=== PATIENT | male | born 1950 | race Caucasian/White ===

== ENCOUNTER 2018-09-01 12:20 | Outpatient (CLI) | payer MEDICARE, OTHER, SELFPAY ==
[2018-09-01 13:36] LABS: Cholesterol 196 mg/dL (50-200); HDL Cholesterol 41 mg/dL (40-60); LDL CHOLESTEROL 139 mg/dL (<100); Triglyceride 48 mg/dL (30-150)
== END 2018-09-01 12:40 ==
PROVIDERS: PCP Family Medicine; Visit Provider Family Medicine
DX: E78.5 Hyperlipidemia, unspecified (principal)
CPT/HCPCS: 36415; 80061; 83721

== ENCOUNTER 2021-01-15 03:19 | Outpatient (CLI) | payer MEDICARE, OTHER, SELFPAY ==
[2021-01-15 12:47] LABS: HCT 42.8 % (40.0-50.0); HGB 13.9 g/dL (13.5-17.5); MCH 29.3 pg (27.0-33.0); MCHC 32.5 % (32.0-36.0); MCV 90.1 fL (80-95); MPV 10.5 fL (8.0-11.0); Platelet Count 243 10^3/uL (130-400); RBC 4.75 10^6/uL (4.36-5.78); RDW 12.5 % (11.8-14.1); RDW-SD 41.1 fL; WBC 5.79 10^3/uL (4.4-10.8)
[2021-01-15 13:23] LABS: ALT 34 U/L (16-63); AST 35 U/L (15-37); Albumin 3.7 g/dL (3.4-5.0); Alkaline Phosphatase 82 U/L (46-116); BUN 28 mg/dL (7-18); CREATININE 1.2 mg/dL (0.70-1.30); Calcium 8.8 mg/dL (8.5-10.1); Calculated LDL 141 mg/dL (<100); Chloride 107 mmol/L (98-107); Cholesterol 192 mg/dL (<200); Glucose 92 mg/dL (74-106); HDL Cholesterol 39 mg/dL (40-60); Potassium 4.8 mmol/L (3.5-5.1); Sodium 143 mmol/L (136-145); TSH (W/Ref FT4) 1.95 uIU/mL (0.36-3.74); Total Protein 6.8 g/dL (6.4-8.2); Triglyceride 64 mg/dL (<150); Vitamin B12 312 pg/mL (193-986)
== END 2021-01-15 03:20 | disposition home or self-care (01) ==
PROVIDERS: PCP Family Medicine; Visit Provider Family Medicine
DX: E78.2 Mixed hyperlipidemia (principal); Z83.3 Family history of diabetes mellitus; R41.9 Unspecified symptoms and signs involving cognitive functions and awareness; Z86.2 Personal history of diseases of the blood and blood-forming organs and certain disorders involving the immune mechanism
CPT/HCPCS: 36415; 80053; 80061; 85027; 82607; 84443

== ENCOUNTER 2022-05-25 01:47 | Outpatient (CLI) | payer MEDICARE, OTHER, SELFPAY ==
--- NOTE | 2022-05-25 07:15 | DI.RAD_ITS ---
Exam(s) XR ANKLE RT COMPLETE EXAM: XR ANKLE RT COMPLETE CLINICAL HISTORY: right ankle pain x 5 mo,effusion,m25.471. TECHNIQUE: 2D digital imaging was performed of the right ankle. Three images were obtained. AP, la teral and oblique views were obtained. COMPARISON: No exams were available for comparison FINDINGS: BONES: No acute fracture is present. No bony destructive lesion is seen. There is a small plantar ca lcaneal spur. JOINTS: The ankle mortise is normally aligned. SOFT TISSUE: Vascular calcifications are seen in the soft tissues. IMPRESSION: No acute abnormality. DATA REPOSITORY: RADIATION DOSE DELIVERED:
== END 2022-05-25 02:07 ==
PROVIDERS: PCP Family Medicine; Visit Provider Family Medicine
DX: M25.471 Effusion, right ankle (principal)
CPT/HCPCS: 73610

== ENCOUNTER → 2022-12-09 10:44 | Outpatient (BNVA) | payer MEDICARE, OTHER, SELFPAY | PROVIDERS: PCP Family Medicine; Referring Provider Family Medicine; Visit Provider Physical Therapy Assistant | DX: Z12.11 Encounter for screening for malignant neoplasm of colon (principal) ==

== ENCOUNTER 2023-01-03 06:12 | Day surgery (SDC) | payer MEDICARE, OTHER, SELFPAY ==
--- NOTE | 2023-01-02 19:36 | W.PM.DSUDISC ---
Date of service: 01/03/23 Time of Service: 08:00 Discharge Plan Disposition Patient Disposition: Home Condition: Good Discharge Details Reason For Visit: Screening colonoscopy Attending Provider: Aryan Flores Primary Care Provider: Estephania Langford Home Meds and New Rx's Prescriptions: Continued aspirin 325 MG tablet,delayed release (DR/EC) 325 mg PO DAILY Patient Comments: 11/29/14 taking bid. [facility] atorvastatin 20 mg tablet 20 mg PO QHS Qty: 90 3RF triamcinolone acetonide 0.1 % ointment 1 applic Topical BID PRN (Reason: rash) Qty: 80 3RF Rx Instructions: Apply to right leg Discontinued bisacodyl [Dulcolax (bisacodyl)] 5 mg tablet,delayed release (DR/EC) 5 mg PO ONCE Qty: 4 0RF Rx Instructions: Take per colonoscopy instructions provided by ordering providers office polyethylene glycol 3350 17 gram/dose powder 17 g PO ONCE Qty: 238 0RF Rx Instructions: Take per colonoscopy instructions provided by ordering providers office Discharge Instructions Additional Instructions: Josr, we were able to complete your colonoscopy today without any problems. The quality of your prep was excellent. I did not see any signs of tumors or polyps. With a negative screening colonoscopy, my recommendation is to consider another one in 10 years. 1. If tolerated, consume a soft, low fiber diet for 1-2 days. 2[address] Do not drive, drink alcohol, operate machinery, make critical decisions, or do activities that require coordination or balance for 24 hours. 3. Because air was put into your colon during the procedure, expelling air from your rectum (passing gas or farting) is normal. 4. You may not have a bowel movement for 1-3 days because of the colonoscopy prep. This is normal. 5. Go directly to the emergency room if you notice any of the following: Develop chills (warm to touch), or if you have a thermometer and your temperature is above 101 Difficulty breathing or difficultly swallowing Persistent vomiting Severe abdominal pain, other than gas cramps Severe chest pain Black, tarry stools Any bleeding ? exceeding one tablespoon 6. Call your physician if the site where your intravenous was started becomes red, swollen, painful, and warm to touch. 7. Your physician has reviewed your pre-procedure medications. Please continue to take those medications as previously ordered. You will be given specific information/education regarding any changes to your medications before leaving. Activity:: Activity as Tolerated Diet:: As Tolerated Discharge Orders Discharge Orders: Discharge Order (Routine); Ordered 01/02/23 Ordered By: Aryan Flores DS: Diagnosis Discharge Diagnosis (1) Screen for colon cancer: Status: Acute
--- NOTE | 2023-01-02 19:37 | COLE_ITS ---
Date of service: 01/03/23 Time of Service: 08:00 Colonoscopy Report Date of procedure: 01/03/23 Pre-op diagnosis general: Screening colonoscopy Post-op diagnosis procedure note: other (Negative screening colonoscopy) Procedure: Colonoscopy Surgeon: Aryan Flores Anesthesia Type: General:No Airway Estimated blood loss (mL): 0 Pathology: none sent Complications: None Disposition: same day Indications: Josr is a 72 year old man who needs a screening colonoscopy Prep: Miralax/Dulcolax Procedure Start Time: 07:32 Procedure End Time: 07:49 Retraction Time: 11 Findings: Negative screening colonoscopy Procedure Description: After the induction of monitored anesthetic care, and with the patient in left lateral decubitus position, I began by performing an external anorectal exam.? Perineum and skin were normal, as was the anal verge.? There is a perianal skin tag.? Next, I performed a digital rectal exam.? I did not appreciate any abnormal findings.? Next, I advanced a colonoscope into the rectal vault.? I performed retroflexion.? I did not see signs of pathologic internal hemorrhoids.? Using insufflation, I then advanced the colonoscope beyond the rectal folds and into the sigmoid colon before advancing towards the cecum.? The quality of the prep was excellent.? The scope was noted to be in the cecum by identification of the ileocecal valve and appendiceal orifice.? I then began withdrawing the colonoscope using repeated irrigation as necessary for full evaluation of the colonic mucosa. ?Once the scope was withdrawn to the level of the rectum, great care was taken to examine portions of the rectal folds.? Monaemilie sommers, the scope was withdrawn and the patient was brought to the same-day surgery recovery unit as the anesthetic wore off. ?The findings and instructions were shared with the patient prior to discharge.
[2023-01-03 06:32] VITALS: BP 123/81; PULSE 82; RESP 14; TEMP 36.3; O2SAT 96
[2023-01-03] MEDS: Lactated Ringers 1,000 ML 80 ML IV (06:50)
--- NOTE | 2023-01-03 06:56 | W.ANESPRE ---
General Info Date of Service Date Performed: 01/03/23 Height: 5 ft 10 in Weight: 96.4 kg Body Mass Index (BMI): 30.4 Surgical Procedure: Operation Date: 01/03/23 07:35 Proposed Procedure Side Surgeon p Colonoscopy Aryan Flores MD Actual Procedure Side Surgeon p Colonoscopy Not Applicable Aryan Flores MD Pre-Op Diagnosis Post-Op Diagnosis Screening colonoscopy Meds Allergies and Home Medications Allergies Allergy/AdvReac Type Severity Reaction Status Date / Time No Known Allergies Allergy Verified 01/03/23 06:34 Home Medication Medication Instructions Recorded aspirin 325 mg tablet,delayed 325 mg PO DAILY 04/02/13 release atorvastatin 20 mg tablet 20 mg PO QHS #90 tabs 04/27/22 triamcinolone acetonide 0.1 % 1 applic topical BID PRN rash #80 04/27/22 topical ointment grams Current Visit Medications: Current Medications Generic Name Dose Route Start Last Admin Trade Name Freq PRN Reason Stop Dose Admin Hyoscyamine Sulfate 0.125 mg 01/02/23 19:38 Hyoscyamine 0.125 Mg Sl/Oral/Chew SL 02/01/23 19:37 DIRECTED PRN Ondansetron HCl 4 mg 01/02/23 19:38 Ondansetron 4 Mg/2 Ml Vial IVP 02/01/23 19:37 Q4H PRN PRN Nausea / Vomiting PFSH Active Problems Active Problems: Problem Status Onset Code 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 Surgical History Surgical History (Updated 01/03/23 @ 06:37 by Dianne Luna) Hx of colonoscopy S/P total knee arthroplasty bilateral - right 2012, left 2006 Tobacco Smoking/Tobacco Use Status: Former Tobacco Use Passive smoking exposure: Yes Second hand exposure: Yes Alcohol Alcohol Intake: current Alcohol intake frequency: holidays/special occasions only Alcohol type: beer Substance Use Substance use: Never Substance use type: does not use Details: alcohol: t-2, one beer Vital Signs and Lab Results Vital Signs Most Recent Vital Signs in EMR: Most Recent Vital Signs Temp Pulse Resp BP Pulse Ox 36.3 C L 82 14 123/81 96 01/03/23 06:32 01/03/23 06:32 01/03/23 06:32 01/03/23 06:32 01/03/23 06:32 Lab Results Blood Type / Crossmatch: No Data to Display Complete Blood Count: No Data to Display Complete Metabolic Panel: No Data to Display Liver Function Panel: No Data to Display Coagulation Panel: No Data to Display Cardiac Panel: No Data to Display Arterial Blood Gas: No Data to Display Venous Blood Gas: No Data to Display Pancreas Panel: No Data to Display Thyroid Panel: No Data to Display Infectious Disease: No Data to Display Blood Cultures: No Data to Display Toxicology Panel: No Data to Display Anesthesia Assessment and Plan Anesthesia History Personal History: No History of Anesthesia Complications Family History: No Family History of Anesthesia Complications Exercise Tolerance Exercise Tolerance: Metabolic Equivalents>4 Pertinent Negatives Pertinent Negatives: No Symptoms of GERD, No Major Cardiovascular Symptoms or Complaints, No Major Pulmonary Symptoms or Complaints and No History of CVA/TIA Cardiac & Pulmonary Exam Cardiac Exam: Normal S1/S2 Heart Sounds Pulmonary Exam: Clear Bilateral Breath Sounds Implantable Cardiac Device Does patient have a Pacemaker or an ICD?: No Airway Exam Known Difficult Airway: No Mallampati Class: 3 Mouth Opening: Normal (> 3cm) Thyromental Distance: Greater than 3 cm Neck Range of Motion: Full ROM Neck Circumference: Normal Teeth Condition: Normal Dentition ASA Classification ASA Score: ASA 2 Emergency Case?: No NPO Status NPO Status: NPO Clears >2 hours, Solids >8 hours Anesthesia Plan Resuscitation Status: Full Code Anesthesia Technique: General Anesthesia Airway Planned: Natural Airway Monitors Used: Standard Monitors Preoperative Comments:: 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 Discussed risk of general anesthesia, known clots, and vasodilation - potential for stroke, PE, heart attack. Patient confident with continuing today as he has had prior anesthetics and done fine. Discussed plan to provide additional blood pressure control as necessary.
[2023-01-03 07:17] VITALS: BMI 30.4
[2023-01-03 07:57] VITALS: BP 101/79; PULSE 76; RESP 16; TEMP 36.6; O2SAT 96
[2023-01-03 08:28] VITALS: BP 107/75; PULSE 69; RESP 18; TEMP 36.6; O2SAT 96
--- NOTE | 2023-01-03 09:24 | W.ANESPOSTOP ---
Postoperative Evaluation Date, Time and Location Date Performed: 01/03/23 Time Performed: 07:57 Patient Location: Day Surgery Unit Vital Signs Most Recent Imported Vital Signs: Most Recent Vital Signs Temp Pulse Resp BP Pulse Ox 36.6 C 69 18 107/75 96 01/03/23 08:28 01/03/23 08:28 01/03/23 08:28 01/03/23 08:28 01/03/23 08:28 Pain Score Most Recent Pain Score: Most Recent Pain Score Pain Level 0 01/03/23 08:28 Assessment Mental Status: Awake (Alert & Oriented to Patient Baseline) Airway and Respiratory Function: Patent airway with normal (patient baseline) respiratory exam Cardiovascular Function: Hemodynamically Stable Hydration Status: Adequately Hydrated Nausea & Vomiting: No Nausea or Vomiting Pain: Pt. Denies Any Pain Peripheral Nerve Block: Patient did not receive a nerve block
== END 2023-01-03 08:43 | disposition home or self-care (01) ==
PROVIDERS: PCP Family Medicine; Visit Provider Surgery
PROC: 0DJD8ZZ Inspection of Lower Intestinal Tract, Via Natural or Artificial Opening Endoscopic (ICD-10-PCS; CPT 45378; principal; 2023-01-03 07:30)
DX: Z12.11 Encounter for screening for malignant neoplasm of colon (principal)
CPT/HCPCS: G0121; 36415; 94640; 96374; 99291

== ENCOUNTER 2023-02-08 09:56 | Emergency (ER) | payer MEDICARE, OTHER, SELFPAY ==
[2023-02-08] VITALS (27 sets, daily range): BP systolic 97–120; BP diastolic 54–93; PULSE 85–101; RESP 0–28; TEMP 38; O2SAT 95
--- NOTE | 2023-02-08 10:01 | W.ED.GENAD ---
Discharge Plan Disposition Patient Disposition: Home Condition: Stable Discharge Details Clinical Impression: COVID-19 Primary Care Provider: Estephania Langford ED Provider: Eliud Luis Home Meds and New Rx's Prescriptions: New Paxlovid 300 mg (150 mg x 2)-100 mg tablets,dose pack See Rx Instructions .ROUTE .COMPLEX Qty: 30 0RF Rx Instructions: take TWO 150 mg tablets of nirmatrelvir with ONE 100 mg tablet of ritonavir twice daily for 5 days Continued aspirin 325 MG tablet,delayed release (DR/EC) 325 mg PO DAILY Patient Comments: 11/29/14 taking bid. [facility] triamcinolone acetonide 0.1 % ointment 1 applic Topical BID PRN (Reason: rash) Qty: 80 3RF Rx Instructions: Apply to right leg Held atorvastatin 20 mg tablet 20 mg PO QHS Qty: 90 3RF Hold Instructions: Resume on 02/14/23. Discontinued molnupiravir 200 mg capsule 800 mg PO Q12H 5 Days Qty: 40 0RF Discharge Instructions Instructions: COVID-19 (Coronavirus Disease 2019) (ED) Additional Instructions: Please drink plenty of fluids and allow for plenty of rest. Please maintain home isolation for the next 5 days. You can break isolation after 5 days if symptoms resolved. If you continue to have symptoms maintain isolation until symptoms improved and no fever for 24 hours. Please stop taking molnupiravir. Please start taking Paxlovid and dose according to instructions on label. Hold your atorvastatin for the next 1 week. Please contact your primary care physician to arrange follow-up. Return to the ER immediately for any worsening or new concerning symptoms. Referrals: Estephania Langford MD [Primary Care Provider] - Discharge Data Discharge Date/Time-TO BE ENTERED AT DEPARTURE: 02/08/23 12:53 Medical Decision Making 1050?72-year-old male with hyperlipidemia and obesity, here with cough over the past couple days, tested positive for COVID 2 days ago. Patient is saturating 95% on room air. He does have vigorous cough. Patient has rhonchi and rales bilaterally. Concern for acute COVID illness. Plan to confirm COVID status. Plan for Paxlovid as patient is still within therapeutic window. I will check kidney function. Patient is mildly tachycardic and slightly dehydrated. I will give IV fluid bolus. 1233 --chest x-ray was interpreted by radiology: No acute pulmonary findings. Patient reassessed and tachycardia improved. Patient notes he is feeling much better. Plan to discontinue molnupiravir and start Paxlovid. I spoke with the pharmacy who recommends holding statin while on Paxlovid. I called and spoke with the patient's primary care physician, Dr. Langford, discussed ED presentation and course, she agrees with treatment plan and will be happy to see the patient as needed and follow-up. Disposition decision was made weighing the risks and benefits of hospitalization versus outpatient treatment, the risk for further decompensation, and the patient's wishes. The patient was stable and requested discharge. Prior to discharge, my usual and customary return precautions were reviewed with the patient - this included follow-up instructions and reason to return to the emergency department if condition worsens, does not improve as expected, or other new concerns arise. Lab Data Lab results reviewed: Yes I reviewed the patient's lab results. Labs: Laboratory Tests Range/Units 02/08/23 02/08/23 02/08/23 10:42 10:50 10:50 WBC (4.4-10.8) 10^3/uL 11.10 H RBC (4.36-5.78) 10^6/uL 4.66 Hgb (13.5-17.5) g/dL 13.8 Hct (40.0-50.0) % 41.8 MCV (80-95) fL 90 MCH (27.0-33.0) pg 29.6 MCHC (32.0-36.0) % 33.0 RDW (11.8-14.1) % 12.9 Plt Count (130-400) 10^3/uL 171 MPV (8.0-11.0) fL 9.5 Immature Gran % 0.0 Neutrophils % 74.0 Lymphocytes % 8.0 Monocytes % 18.0 Eosinophils % 0.0 Basophils % 0.0 Nucleated RBC % (0.0-0.3) % 0.0 Absolute Neutrophils (1.2-6.7) 10^3/uL 8.21 H Absolute Lymphocytes (1.2-3.4) 10^3/uL 0.89 L Absolute Monocytes (0.1-0.8) 10^3/uL 2.00 H Absolute Eosinophils (0.0-0.7) 10^3/uL 0.00 Absolute Basophils (0.0-0.2) 10^3/uL 0.00 RBC Morphology Normal Sodium (136-145) mmol/L 135 L Potassium (3.5-5.1) mmol/L 4.3 Chloride (98-107) mmol/L 101 Carbon Dioxide (21.0-32.0) mmol/L 24.7 Anion Gap (3-11) mmol/L 9.3 BUN (7-18) mg/dL 23 H Creatinine (0.70-1.30) mg/dL 1.3 Est GFR (CKD-EPI 2020) (mL/min/1.73m2) 59.10 Glucose (74-106) mg/dL 111 H Calcium (8.5-10.1) mg/dL 8.8 Total Bilirubin (0.2-1.0) mg/dL 1.0 AST (15-37) U/L 27 ALT (16-63) U/L 31 Alkaline Phosphatase (46-116) U/L 64 Total Protein (6.4-8.2) g/dL 7.2 Albumin (3.4-5.0) g/dL 3.3 L COVID-19 Source Nasopharynx SARS-CoV-2 (PCR) (Negative) Positive A Influenza Type A (PCR) (Negative) Negative Influenza Type B (PCR) (Negative) Negative RSV (PCR) (Negative) Negative HPI General Mode of arrival: EMS. Date/Time Provider Initiated Documentation: 02/08/23 10:01. Limitations to Documentation: no limitations. Information obtained by: patient. HPI Narrative: 72-year-old male with history of obesity and hyperlipidemia, presents with chief complaint of cough. Patient notes he developed cough 2 days ago that has persisted. Patient notes he started to have mild respiratory symptoms 3 days ago that have worsened. He has associated sore throat. Patient tested positive for COVID by antigen 2 days ago. Cough is intermittently productive. No chest pain. Related Data Home Medications Medication Instructions Recorded Confirmed aspirin 325 mg tablet,delayed 325 mg PO DAILY 04/02/13 02/08/23 release atorvastatin 20 mg tablet 20 mg PO QHS #90 tabs 04/27/22 02/08/23 triamcinolone acetonide 0.1 % 1 applic topical BID PRN rash #80 04/27/22 02/08/23 topical ointment grams nirmatrelvir 300 mg (150 mg See Rx Instructions PO .COMPLEX 02/08/23 x2)-ritonavir 100 mg tablet,dose #30 dose pk pack (Paxlovid) Previous Rx's Medication Instructions Recorded atorvastatin 20 mg tablet 20 mg PO QHS #90 tabs 04/27/22 triamcinolone acetonide 0.1 % 1 applic topical BID PRN rash #80 04/27/22 topical ointment grams nirmatrelvir 300 mg (150 mg See Rx Instructions PO .COMPLEX 02/08/23 x2)-ritonavir 100 mg tablet,dose #30 dose pk pack (Paxlovid) Allergies Allergy/AdvReac Type Severity Reaction Status Date / Time No Known Allergies Allergy Verified 02/08/23 10:07 Review of Systems Constitutional Constitutional: Reports fever(s) Cardiovascular Cardiovascular: Reports dyspnea (During coughing spells) Respiratory Respiratory: Reports as per HPI, Reports cough and Reports dyspnea (During coughing spells) [facility] All Active Problems (Updated 02/08/23 @ 12:36 by Eliud Luis MD) COVID-19 (Acute) COVID-19 (Acute ~02/05/23) Reticular venous varices (Chronic) right greater saphenous - nontender, no phlebitis. 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 Surgical History Hx of colonoscopy (~12/2022) S/P total knee arthroplasty bilateral - right 2012, left 2005 Family History Mother , 77 Breast cancer Asthma Father , 63 Diabetes Sister Diabetes Breast cancer Brother , 59 Diabetes MS (multiple sclerosis) Maternal Grandmother No problems noted. Son No problems noted. Daughter No problems noted. Maternal Grandfather No problems noted. Paternal Grandmother No problems noted. Paternal Grandfather No problems noted. 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 Pets and animals: Yes Pets and animals: dog(s) Sexually active: Yes Do you think of yourself as: straight/heterosexual What is your relationship status?: How often do you talk on the phone with friends or family?: decline to answer How often do you get together with friends or relatives?: once per week How often do you attend latter-day or religion services?: 4 or more times per year Do you belong to any clubs or organized social groups?: no Panel score (0-1 are the most socially isolated patients): 2 What type of physical activity do you participate in: bicycling and other Details: Snowshoe Duration: < 15 minutes/day Frequency: 1-2 times per week Damaris/Shinto: Confucianism Special damaris needs: No Seatbelt use: always Helmet use: Yes Helmet use: always Drive intox or ride w/intox ha[place]ak driver: No Do you feel safe at home: Yes Do you feel safe in your relationship?: Yes Exam Const General: cooperative and no acute distress HENMT Mouth: moist mucous membranes Eyes Conjunctivae: normal conjunctivae Sclera: normal sclerae Neck Neck: trachea midline and supple Resp Effort & Inspection: normal respiratory effort, able to speak in complete sentences and not tachypneic Auscultation: rales bilaterally and rhonchi Cardio Rate: tachycardic Rhythm: regular rhythm GI Palpation: soft, not firm, no guarding, no masses, not rigid and nontender Skin General skin exam: no rashes or lesions noted Neuro General: patient alert, patient awake, patient oriented x3 and tone normal Extrem General: no edema Psych Appearance: grossly normal Mental Status: mental status grossly normal
[2023-02-08] MEDS: Lactated Ringers 500 ML 1000 ML IV (10:45)
[2023-02-08 10:57] LABS: HCT 41.8 % (40.0-50.0); HGB 13.8 g/dL (13.5-17.5); MCH 29.6 pg (27.0-33.0); MCV 90 fL (80-95); MPV 9.5 fL (8.0-11.0); Platelet Count 171 10^3/uL (130-400); RBC 4.66 10^6/uL (4.36-5.78); RDW 12.9 % (11.8-14.1); RDW-SD 42.9 fL
--- NOTE | 2023-02-08 11:13 | DI.RAD_ITS ---
Exam(s) XR PORTABLE CHEST AP EXAM: XR PORTABLE CHEST AP CLINICAL HISTORY: covid, cough TECHNIQUE: 2D digital imaging was performed of the chest. Two images were obtained. AP views were obtained. COMPARISON: CR CHEST 2 VIEWS PA,LAT from 07/07/2009 FINDINGS: MEDIASTINUM: Normal. HEART: Normal. PULMONARY VASCULATURE: Normal. LUNGS: Clear. PLEURAL SPACE: No pleural effusion or pneumothorax. BONE:Within normal limits for the patient's age. OTHER FINDINGS:Normal. IMPRESSION: No acute pulmonary findings. DATA REPOSITORY: RADIATION DOSE DELIVERED:
[2023-02-08 11:16] LABS: Absolute Neutrophil Count 8.21 10^3/uL (1.2-6.7)
[2023-02-08 11:17] LABS: Absolute Lymphocyte Count 0.89 10^3/uL (1.2-3.4); Diff Comment Manual Differential; RBC Morphology Normal
[2023-02-08 11:21] LABS: ALT 31 U/L (16-63); AST 27 U/L (15-37); Albumin 3.3 g/dL (3.4-5.0); Alkaline Phosphatase 64 U/L (46-116); Anion Gap 9.3 mmol/L (3-11); BUN 23 mg/dL (7-18); CO2 24.7 mmol/L (21.0-32.0); CREATININE 1.3 mg/dL (0.70-1.30); Calcium 8.8 mg/dL (8.5-10.1); Chloride 101 mmol/L (98-107); Glucose 111 mg/dL (74-106); Potassium 4.3 mmol/L (3.5-5.1); Sodium 135 mmol/L (136-145); Total Protein 7.2 g/dL (6.4-8.2)
[2023-02-08 11:36] LABS: Influenza A PCR Negative (Negative); Influenza B PCR Negative (Negative); RSV PCR Negative (Negative)
[2023-02-08 11:44] LABS: COVID-19 PCR Positive (Negative); Source Nasopharynx
== END 2023-02-08 12:53 | disposition home or self-care (01) ==
PROVIDERS: Emergency Provider Student in an Organized Health Care Education/Training Program; PCP Family Medicine
DX: U07.1 COVID-19 (principal); R06.02 Shortness of breath
CPT/HCPCS: 80053; 87637; 99283; 71045; 85025

== ENCOUNTER 2023-05-31 15:05 | Outpatient (CLI) | payer MEDICARE, OTHER, SELFPAY ==
[2023-05-31 12:32] LABS: Calculated LDL 73 mg/dL (<100); Cholesterol 130 mg/dL (<200); HDL Cholesterol 40 mg/dL (40-60); Hemoglobin A1C 5.8 % (<5.7); Triglyceride 85 mg/dL (<150)
[2023-05-31 18:51] LABS: PSA, Screening 4.5 ng/mL (<=6.5)
== END 2023-05-31 15:06 | disposition home or self-care (01) ==
LOC: LOS 15:06
PROVIDERS: PCP Family Medicine; Visit Provider Family Medicine
DX: E78.2 Mixed hyperlipidemia (principal); Z13.6 Encounter for screening for cardiovascular disorders; Z12.5 Encounter for screening for malignant neoplasm of prostate; R73.01 Impaired fasting glucose; Z13.1 Encounter for screening for diabetes mellitus
CPT/HCPCS: 36415; 80061; 84153; 83036

== ENCOUNTER 2024-04-04 01:44 | Outpatient (CLI) | payer MEDICARE, OTHER, SELFPAY ==
--- NOTE | 2024-04-04 09:15 | DI.MRI_ITS ---
Exam(s) MR LUMBAR SPINE WO EXAM: MR LUMBAR SPINE WO CLINICAL HISTORY: right leg pain;no improvement with PT,rt sciatica,m54.31. TECHNIQUE: Multiplanar multisequence MRI of the Lumbar spine was performed. COMPARISON: No plain films available at the time of this MRI interpretation. FINDINGS: Five lumbar vertebrae are presumed. Conus medullaris is at normal level. There is no evidence of conus mass nor subjacent clumping of in trathecal nerve roots to suggest arachnoiditis. The distal thecal sac appears unremarkable.There is no evidence of Tarlov intrasacral cysts nor other significant findings within the sacral canal Bones:There are no fractures nor ominous osseous lesions in the lumbar vertebral bodies and visualize d sacrum. There are a few Schmorl's node invagination XXXX in the vertebral bodies, most prominent a t ill of three-four and L2-3 levels. Also a shallow Schmorl's node invagination noted in the inferio r endplate of L1 which exhibits some surrounding bone edema and therefore may be acute or subacute. With respect to the individual levels... T12-L1: Unremarkable L1-2: This level exhibits relatively uniform moderate disc space narrowing. Also anterior osseous li pping. Posteriorly there is some annular bulging slightly more prominent left paracentral but there is no prominent disc herniation or central canal stenosis at this level. There is no significant for aminal stenosis. Facet joints appear unremarkable. L2-3: This level exhibits relatively uniform moderate disc space narrowing and Schmorl's node invagin ation is. Posteriorly there is a central-left paracentral disc protrusion which extends posteriorly 4 mm and is approximately 9 mm wide and slightly indents the anterior thecal sac at this level. Cent ral canal dimensions are within normal limits. There is no significant foraminal stenosis at this le jeff. Mild degenerative changes in the facet joints. L3-4: This level exhibits only mild disc height loss. There is mild degenerative anterolisthesis L3 upon L4 by about 3 mm, this related to significant bilateral facet arthropathy. There is annular bul ging which is symmetrical and resulting from pseudo herniation of the disc related to the listhesis. There is mild central spinal canal stenosis. There is, however, no significant foraminal stenosis a t this level.There is advanced facet arthropathy bilaterally at this level. L4-5: This level exhibits significant disc space narrowing, more prominent on the left side and there also lateral left bridging osteophytes evident. There is mild relatively symmetrical annular bulgin g at this level, the this extending into the exiting neural foramen on the left side and this, togeth er with the asymmetric left sided disc height loss does result in mild left-sided foraminal stenosis. There is no foraminal stenosis on the right side at this level. L5-S1: This level exhibits advanced chronic disc space narrowing which is relatively uniform and asso ciated with osteophytes bilaterally. Posteriorly there is annular bulging with a superimposed centra l subligamentous disc protrusion which contacts but does not significantly indent the thecal sac. Ce ntral canal dimensions are lower normal. There is no listhesis at this level but there is mild-moder ate bilateral foraminal stenosis related to the advanced disc height loss. There are mild degenerati ve changes in the facet joints at this level. Soft tissues: paraspinal soft tissues appear unremarkable. IMPRESSION: 1. Multilevel degenerative disc disease findings as described individually above 2. There is a central-left paracentral disc protrusion at L2-3 level without significant central nor foraminal stenosis at this level. 3. Mild central canal stenosis evident at L3-4 level 4. There is asymmetric left-sided foraminal stenosis on the left side at L4-5 level. 5. Bilateral foraminal stenosis evident at L5-S1 level as described above. DATA REPOSITORY:
== END 2024-04-04 02:04 ==
LOC: DI 01:44
PROVIDERS: PCP Family Medicine; Visit Provider Family Medicine
DX: M54.31 Sciatica, right side (principal); M99.63 Osseous and subluxation stenosis of intervertebral foramina of lumbar region
CPT/HCPCS: 72148

== ENCOUNTER 2024-06-18 00:41 | Outpatient (CLI) | payer MEDICARE, OTHER, SELFPAY ==
--- OUTSIDE RECORDS SUMMARY | 2024-06-18 00:50 | XMS_ITS | Encounter Summary ---
Author Organization [facility] [place] [address] Care Team Providers Care Railroad Yard Worker Name Role Phone Josr Rangel MD Primary Care Provider Unavailab le Reason for Visit * Reason Comments Varicose Veins phlebitis of right V V swelling Encounter Details Date Type Department Care Team (Late st Contact Info) Description 01/14/2016 10:00 AM EDT Office Visit [place] [address] Arsen Garber MD [facility] [place] [address] Varicose veins of leg with pain, right Social History Tobacco Use Types Packs/Day Years Used Date Smoking Tobacco: Former Cigarettes 2 10 Smokeless Tobacco: Never Comments:QUIT 35 YEARS AGO Alcohol Use Standard Drinks/Week Comments No 0 (1 standard drink = 0.6 oz pur e alcohol) Sex and Gender Information Value Date Recorded Sex Assigned at Not on file Gender Identity Not on file Sexual Orientation Not on file documented as of this encounter Last Filed Vital Signs Vital Sign Reading Time Taken Comments Blood Pressure 126/65 01/14/2016 9:20 AM EDT Pulse 80 01/14/2016 9:20 AM EDT Temperature - - Respiratory Rate 18 01/14/2016 9:20 AM EDT Oxygen Saturation - - Inhaled Oxygen Concentration - - Weight 103.4 kg (228 lb) 01/14/2016 9:20 AM EDT Height 180.3 cm (5' 11) 01/14/2016 9:20 AM EDT Body Mass Index 31.8 01/14/2016 9:20 AM EDT documented in this encounter Progress Notes * Eliud Mcfarland MD - 01/14/2016 10:00 AM EDT OUTPATIENT VASCULAR SURGERY FOLLOW-UP CONSULTATION ?? Reason for Visit: Right chronic venous insufficiency ?? History of Present Illness: This is a 64 y.o. male with R LE varicose veins complicated by extensive superficial phlebitis. He returns today for follow-up following his venous incompetence study. Pt has long h/o of R LE varicose veins. He has a long history of superficial phlebitis in his calf, but in August of 2013 he noted pr ogression into his thigh and was treated with full-strength aspirin and serial Duplex. He has had one prior history of cellulitis at his ankle last summer, and 2-3 prior venous ulcers which have healed with Unna boot application. No h/o of DVT, does develop leg swelling through day relieved with elevation at night, uses compression stockings. No pain associated with varicosities. No bleeding episodes. He works as a [employer] , enjoys golf, does not smoke. His Duplex reveals extensive superficial and deep venous incompetence. He has thrombus in his GSV throughout his calf and thigh but no extension into his CFV. Atherosclerotic Risk Factors: (n) DM (n) HTN (n) Hyperlipidemia reports that he has quit smoking. His smoking use included Cigarettes. He has a 20 pack-year smoking history. He has never used smokeless tobacco. ?? Cardiovascular History: (n) Previous MN (n) Angina (n) CHF (n) Arrythmia (n) copd ? Patient Active Problem List Diagnosis Code ??? S/P knee replacement V43.65 ??? Obesity, unspecified 278.00 ??? Other and unspecified hyperlipidemia 272.4 ??? Asymptomatic varicose veins 454.9 ??? Osteoarthritis of knee s/p TKA Gonzalez 05/07/13 715.96 ??? Urinary retention 788.20 ??? Arthritis of knee 716.96 ? Current outpatient prescriptions: aspirin 325 mg EC tablet, Take 325 mg by mouth 2 times daily., Disp: , Rfl: ; amoxicillin (AMOXIL) 500 mg capsule, 2000mg, PO, Pre procedure, Disp: , Rfl: ?? No Known Allergies ?? Review of Systems: Constitutional (weight change, fever) - Denies Neuro (dizziness, seizures, numbness, tingling) - Denies Eyes (vision) - Denies Ears, nose, throat (hearing) - Denies Cardiovascular (CP) - Denies Respiratory (SOB) - Denies GI (abd pain, nausea, emesis, blood in stool) - Denies (hematuria, dysuria, frequency) - Denies Muscoloskeletal (extremity pain, weakness) - Denies Skin (ulcers, rashes) - Denies ?? Functional Status/Social Hx: Lives at home, ?? Family Hx: Negative for Thrombosis, Bleeding Disorders ?? Physical Exam: BP 146/87 mmHg Pulse 80 Resp 20 Ht 179.1 cm (5' 10.5) Wt 102.513 kg (226 lb) BMI 31.96 kg/m2 General - NAD, appears stated age Neuro - Alert and Oriented, Motor Sensory grossly intact Skin - No prominent markings or lesions Ear, Nose, Throat - No masses, No lesions Musculoskeletal- full ROM upper and lower extremities Psych- alert oriented X3 , Extremities - Warm, pink, mild edema to knee on R , large thrombosed GSV on R, not tender, no cellulitis, no ulceration, multiple additional calf varicosities present. , brisk capillary refill ?? Vascular Exam: ? R L Carotid 2/2 bruit () 2/2 bruit () Radial 2/2 2/2 Femoral 2/2 2/2 Popliteal ? DP 2/2 2/2 PT 2/2 2/2 ?? Labs: No results found for this or any previous visit (from the past 72 hour(s)). ?? Studies: Findings: Common Femoral Vein, Right ?Reflux?: Reflux Femoral Vein, Right ?Reflux?: Reflux Popliteal, Right ?Reflux?: Reflux GSV, Near SFJ, Right ?Reflux?: Reflux ?Diameter (mm): 6.5 ?Depth (mm): 22.0 GSV, Proximal Thigh, Right ?Reflux?: Reflux ?Diameter (mm): 7.2 ?Depth (mm): 12.7 ?Thrombus?: NON-OCCLUSIVE THROMBUS GSV, Mid Thigh, Right ?Reflux?: Reflux ?Diameter (mm): 5.7 ?Depth (mm): 4.7 ?Thrombus?: NON-OCCLUSIVE THROMBUS GSV, Distal Thigh, Right ?Diameter (mm): 16.7 ?Depth (mm): 2.8 ?Thrombus?: THROMBUS GSV, ??Knee, Right ?Diameter (mm): 17.0 ?Depth (mm): 2.6 ?Thrombus?: THROMBUS GSV Prox Calf, Right ?Reflux?: Reflux ?Diameter (mm): 4.4 ?Depth (mm): 1.9 ?Thrombus?: NON-OCCLUSIVE THROMBUS GSV, Mid Calf, Right ?Reflux?: Reflux ?Thrombus?: NON-OCCLUSIVE THROMBUS GSV, Distal Calf, Right ?Reflux?: Reflux SSV, Right ?Reflux?: Competent Interpretation: Right: The great saphenous vein has diffuse non-occlusive thrombus with segments thrombosed. Multiple varicosities join the GSV. In area's patent the GSV is incompetent (>2 seconds). The common femoral vein, femoral vein in the thigh, popliteal are incompetent (>2 seconds). The short saphenous vein is competent. No evidence of deep venous thrombus (fem-pop). Comparison: ??No previous study in our vascular lab database for comparison. Assessment and Plan: Symptomatic right lower extremity varicose veins complicated by GSV phlebitis. No evidence of DVT. Given the fact that he has had no pain or bleeding associated with his varicosities, his edema is tolerated, and he has extensive deep venous reflux, there is no role for surgical therapy at this time. Should he develop significant pain, stab phlebectomy could be considered, and should he develop recurrent ulceration, a Duplex looking for food beverage server incompetence and potential subsequent perforatorligation could be performed. For his GSV phlebitis, he does not require any more scheduled Duplex studies, but if he feels that his palpable cord becomes more proximal, he will need a DVT study and warfarin therapy. The warning signs of cellulitis, bleeding, clot propagation, chest pain, and dyspnea were reviewed. He was given a new prescription for compression stockings. He can follow-up in our clinic on a prn basis should his phlebitis propagate or should he develop new symptoms. It was a pleasure seeing Mr. Bojorquez in clinic today. Please do not hesitate to call with questions or concerns. Eliud Mcfarland M.D. PGY-4 Pager [phone] ?? i interviewed and examined patient and agree with above note and plan documented in this encounter Plan of Treatment Upcoming Encounters Date Type Department Care Team (Late st Contact Info) Description 06/21/2024 11:15 AM EST Office Visit Neurosurgery at [facility] [address] [place] [address] Riley Parisi MD [address] [facility] [address] Canelo Hodgson PA [address] [facility] [address] documented as of this encounter Visit Diagnoses Diagnosis Varicose veins of leg with pain, right documented in this encounter Care Teams Railroad Yard Worker Relationship Specialty Start Date End Date Josr Rangel MD PCP - General 04/13/13 11/03/22 documented as of this encounter
--- OUTSIDE RECORDS SUMMARY | 2024-06-18 00:50 | XMS_ITS | Encounter Summary ---
Author Organization [facility] [place] [address] Care Team Providers Care Mechanical Engineering Specialist Name Role Phone Josr Rangel MD Primary Care Provider Unavailab le Encounter Details Date Type Department Care Team (Late st Contact Info) Description 05/25/2013 Telephone [place] [address] Davey Gonzalez MD [facility] [place] [address] Social History Tobacco Use Types Packs/Day Years [...] on file documented as of this encounter Miscellaneous Notes * Telephone Encounter - Jennifer March RN - 05/25/2013 11:20 AM EST Case Date: 05/07/2013 Surgeon: Surgeon(s) and Role: * Davey Gonzalez MD - Primary * Arsen Marroquin III, MD Preoperative diagnosis: osteoarthritis Postoperative diagnosis: osteoarthritis Procedure(s): RIGHT TOTAL KNEE ARTHROPLASTY MODIFIER STABILIZED ROTATING PLATFORM TERRI Ovalles calls to request refill of medications: *Requests refill of warfarin as he is currently anticoagulated following total knee surgery. * Requests refill of dilaudid - states that he has 4 tablets remaining. Also requests DrPresley Order for INR testing be faxed to [facility] as he will be beginning outpatient PT and will not have VNA services. Refill of coumadin efaxed to [facility] in [facility]. Discuss refill of dilaudid - unable to call in to pharmacy - will take time to mail, Josr unable to pick up truck driver script. Josr states that his pain has been tolerable - has been using two 2 mg tablets of dilaudid 2-3 times daily. May consider call in of Vicodin - will try over weekend for pain management. INR Order faxed to [facility]. * Telephone Encounter - Britany Whittaker - 05/25/2013 8:10 AM EST Patient would like to speak to the nurse about a refill on his medication. Please call him back at [phone]. documented in this encounter Plan of Treatment Upcoming Encounters Date Type Department Care Team (Late st Contact Info) Description 06/21/2024 11:15 AM EST Office Visit Neurosurgery at [facility] [address] [place] [address] Riley Parisi MD [address] [place] [address] Canelo Hodgson PA [address] [place] [address] documented as of this encounter Visit Diagnoses Diagnosis Medication monitoring encounter- Primary Encounter for therapeutic drug monitoring documented in this encounter Care Teams Mechanical Engineering Specialist Relationship Specialty Start Date End Date Josr Rangel MD PCP - General 04/13/13 11/03/22 documented as of this encounter
--- OUTSIDE RECORDS SUMMARY | 2024-06-18 00:50 | XMS_ITS | Encounter Summary ---
Author Organization [facility] [place] [address] Care Team Providers Care Screw Driver Operator Name Role Phone Josr Rangel MD Primary Care Provider Unavailab le Encounter Details Date Type Department Care Team (Latest Contact Info) Description 08/02/2014 9:30 AM EDT - 08/02/2014 11:59 PM EDT Hospital Encounter XRay at [address] [place] [address] Knee joint replacement status, left Social History Tobacco Use Types Packs/Day Years [...] on file documented as of this encounter Medications at Time of Discharge Medication Sig Dispensed Refills Start Date End Date amoxicillin (AMOXIL) 500 mg capsule 2000mg, PO, Pre procedure 05/13/2010 aspirin 325 mg EC tablet Take 325 mg by mouth 2 times daily. 01/14/2016 documented as of this encounter Plan of Treatment Upcoming Encounters Date Type Department Care Team (Late st Contact Info) Description 06/21/2024 11:15 AM EST Office Visit Neurosurgery at [facility] [address] [place] [address] Riley Parisi MD [address] [place] [address] Canelo Hodgson PA [address] [place] [address] documented as of this encounter Procedures Procedure Name Priority Date/Time Associated Diagnosis Comments XR STANDING ALINGMENT AND 1-2 VIEWS OF KNEE Routine 08/02/2014 10:28 AM EDT Knee joint replacement status, left documented in this encounter Results * XR Standing Alingment and 1-2 views of knee (08/02/2014 10:28 AM EDT) Anatomical Region Laterality Modality Knee N/A Radiographic Nithya ging 08/02/2014 10:2 8 AM EDT Addenda Addendum by Damian Self MD on 08/20/2014 3:20 PM EDT Addendum Begins TECHNIQUE: ??Separate images of the pelvis, knees and feet were acquired in the AP projection with the patient standing. In addition to routine views of the knee, these images were stitched together to form a composite image of the pelvis and legs allowing for evaluation of lower extremity alignment in the weight bearing position. ??AP standing and lateral view of both knees. Addendum Ends Addendum Begins TECHNIQUE: ??Separate images of the pelvis, knees and feet were acquired in the AP projection with the patient standing. In addition to routine views of the knee, these images were stitched together to form a composite image of the pelvis and legs allowing for evaluation of lower extremity alignment in the weight bearing position. ??AP standing and lateral view of both knees. Addendum Ends Addendum by ANABEL, UNSIGNED REPORT on 08/20/2014 3:20 PM EDT Addendum Begins TECHNIQUE: ??Separate images of the pelvis, knees and feet were acquired in the AP projection with the patient standing. In addition to routine views of the knee, these images were stitched together to form a composite image of the pelvis and legs allowing for evaluation of lower extremity alignment in the weight bearing position. ??AP standing and lateral view of both knees. Addendum Ends Addendum Begins TECHNIQUE: ??Separate images of the pelvis, knees and feet were acquired in the AP projection with the patient standing. In addition to routine views of the knee, these images were stitched together to form a composite image of the pelvis and legs allowing for evaluation of lower extremity alignment in the weight bearing position. ??AP standing and lateral view of both knees. Addendum Ends Addendum by Damian Self MD on 08/14/2014 5:06 PM EDT Addendum Begins TECHNIQUE: ??Separate images of the pelvis, knees and feet were acquired in the AP projection with the patient standing. In addition to routine views of the knee, these images were stitched together to form a composite image of the pelvis and legs allowing for evaluation of lower extremity alignment in the weight bearing position. ??AP standing and lateral view of both knees. Addendum Ends Addendum by ANABEL, UNSIGNED REPORT on 08/14/2014 9:43 AM EDT Addendum Begins TECHNIQUE: ??Separate images of the pelvis, knees and feet were acquired in the AP projection with the patient standing. In addition to routine views of the knee, these images were stitched together to form a composite image of the pelvis and legs allowing for evaluation of lower extremity alignment in the weight bearing position. ??AP standing and lateral view of both knees. Addendum Ends Impressions 08/02/2014 11:01 AM EDT IMPRESSION: Status post bilateral total knee replacements. No sign of postop complication or weightbearing axis deviation from normal. Narrative 08/02/2014 11:01 AM EDT EXAMINATION: STANDING ALIGNMENT AND 1-2 VIEWS OF KNEE/BILAT CLINICAL HISTORY: L TKR *RT TKA TECHNIQUE: 3 views of both knees COMPARISON: 06/14/2013 FINDINGS: The patient is status post bilateral total knee replacements. No sign of postop complication. No significant joint effusion noted. Normal distribution of weightbearing lines from the hip to the ankle joint. Procedure Note Damian Self MD / ANABEL, UNSIGNED REPORT - 08/20/2014 EXAMINATION: STANDING ALIGNMENT AND 1-2 VIEWS OF KNEE/BILAT CLINICAL HISTORY: L TKR *RT TKA TECHNIQUE: 3 views of both knees COMPARISON: 06/14/2013 FINDINGS: The patient is status post bilateral total knee replacements. Nosign of postop complication. No significant joint effusion noted. Normaldistribution of weightbearing lines from the hip to the ankle joint. IMPRESSION IMPRESSION: Status post bilateral total knee replacements. No sign of postopcomplication or weightbearing axis deviation from normal. Davey Gonzalez MD IMG DX ORDERABLES documented in this encounter Visit Diagnoses Diagnosis Knee joint replacement status, left documented in this encounter Care Teams Screw Driver Operator Relationship Specialty Start Date End Date Josr Rangel MD PCP - General 04/13/13 11/03/22 documented as of this encounter
--- OUTSIDE RECORDS SUMMARY | 2024-06-18 00:50 | XMS_ITS | Encounter Summary ---
Author Organization [facility] [place] [address] Care Team Providers Care Quarter Folder Name Role Phone Estephania Langford MD Primary Care Provider + [phone] Encounter Details Date Type Department Care Team (Latest Contact Info) Description 11/05/2022 Travel Social History Tobacco Use Types Packs/Day Years [...] on file documented as of this encounter Plan of Treatment Upcoming Encounters Date Type Department Care Team (Late st Contact Info) Description 06/21/2024 11:15 AM EST Office Visit Neurosurgery at [facility] [place] [address] [place] [phone] Riley Parisi MD [address] [place] [address] Canelo Hodgson PA [address] [place] [address] documented as of this encounter Visit Diagnoses Not on filedocumented in this encounter Care Teams Quarter Folder Relationship Specialty Start Date End Date Estephania Langford MD [address] [place] [address] PCP - General Family Medicine 11/04/22 documented as of this encounter
--- OUTSIDE RECORDS SUMMARY | 2024-06-18 00:50 | XMS_ITS | Encounter Summary ---
[place] [address] Care Team Providers Care Fruit Cutter Name Role Phone Estephania Langford MD Primary Care Provider [phone] Encounter Details Date Type Department Care Team (Late st Contact Info) Description 11/04/2022 Tele[place] [address] Davey Gonzalez MD [facility] [address] [place] [address] Social History Tobacco Use Types Packs/Day Years [...] encounter Miscellaneous Notes * Telephone Encounter - Lawanda Miller - 11/04/2022 2:06 PM EDT Scheduled. * Telephone Encounter - Louise Grant - 11/04/2022 9:44 AM EDT Caller: Josr Bojorquez Best Return Contact: Procedure: BILAT TKA R-05/07/13 & L-2004 (DR GONZALEZ) Surgeon: Dr. Gonzalez Questions: Josr calls because he has been delayed in his follow up evaluations after COVID and has a new problem as of last week with his left knee. He has no pain when going up or down stairs but when he turns or pivots he has pain and it is progressively worsening and he is concerned to have bothof his knees checked for hardware integrity and see what the cause is of this new left knee pain. First available search yielded an appointment opening for tomorrow with Gabbie Lorenzana. It is scheduled: He is aware that he may hear back if any changes are needed, the team will call him. Appointment 11/05/2022: 8:30 AM xray 10 AM with Gabbie XR PENDED BILAT TKA R-05/07/13 & L-2004 (DR GONZALEZ) LEFT KNEE PAIN SINCE 10/28/2022 NO NEW INJURY Please advise if image order is ok, and if any other testing is needed prior to the appointment fortomorrow. Red dot placed and team text paged as FYI for next day add on. documented in this encounter Plan of Treatment Upcoming Encounters Date Type Department Care Team (Late st Contact Info) Description 06/21/2024 11:15 AM EST Office Visit Neurosurgery at [address] [place] [address] Riley Parisi MD [address] [place] [address] Canelo Hodgson PA [address] [place] [address] documented as of this encounter Visit Diagnoses Not on filedocumented in this encounter Care Teams Fruit Cutter Relationship Specialty Start Date End Date Etsephania Langford MD [address] [place] [id number] PCP - General Family Medicine 11/04/22 documented as of this encounter
--- OUTSIDE RECORDS SUMMARY | 2024-06-18 00:50 | XMS_ITS | Encounter Summary ---
[place] [address] Care Team Providers Care Interactive Multimedia Designer Name Role Phone Josr Rangel MD Primary Care Provider Unavailab le Encounter Details Date Type Department Care Team (Late st Contact Info) Description 05/21/2013 Anti-Coag Telephone [place] [phone] Jennifer March, RN Arthritis of knee Social History Tobacco Use Types Packs/Day Years [...] on file documented as of this encounter Progress Notes * Jennifer March RN - 05/21/2013 1:07 PM EST Anticoagulation Therapy Nurse Visit Josr Bojorquez Sr. 1950 [address] Gonzalez Indication: DVT Prophylaxis S/P Joint Replacement Duration of Treatment: 28 days ends: June 03, 2013 Therapeutic Range: 2.0-3.0 INR: 1.5 Drawn by: [facility] Patient presents with no signs of bleeding or bruising or signs of thromboembolic events related toprimary diagnosis above. Follow-up for re- evaluation and safety of continuing anticoagulation. Bleeding: Epistaxis Black tarry stools Gingival bleeding Increased bruising Hematuria Other: Hemoptysis x No bleeding / bruising noted Comments: Symptoms of recurring primary event: Chest pain Dyspnea Palpitations Headache Dizziness Edema Confusion Slurred speech Weakness Visual changes Tender/Red/Swollen extremities x No symptoms reported Other: Comments: Recent Medication Changes: no Comments: Have you missed any dose of Coumadin this past week? No Comments: Dietary Changes: No Comments: documented in this encounter Plan of Treatment Upcoming Encounters Date Type Department Care Team (Late st Contact Info) Description 06/21/2024 11:15 AM EST Office Visit Neurosurgery at [facility] [address] [place] [address] Riley Parisi MD 10 [facility] [address] Canelo Hodgson PA 10 [facility] [place] [address] documented as of this encounter Procedures Procedure Name Priority Date/Time Associated Diagnosis Comments EXTERNAL LAB RESULTS Routine 05/21/2013 documented in this encounter Results * (ABNORMAL) External Lab Results (05/21/2013) INR, POC 1.5(Externa l Lab) 0.9 - 1.1 05/21/2013 Historical Provider CHEMISTRY ORDERAB LES documented in this encounter Visit Diagnoses Diagnosis Arthritis of knee Unspecified arthropathy, lower leg documented in this encounter Care Teams Interactive Multimedia Designer Relationship Specialty Start Date End Date Josr Rangel MD PCP - General 04/13/13 11/03/22 documented as of this encounter
--- OUTSIDE RECORDS SUMMARY | 2024-06-18 00:50 | XMS_ITS | Encounter Summary ---
[place] [address] Care Team Providers Care Planning Director Name Role Phone Estephania Langford MD Primary Care Provider [phone] Encounter Details Date Type Department Care Team (Late st Contact Info) Description 11/04/2022 Orders [place] [address] Roberto Carlos Rogers, RMA Primary osteoarthritis of both knees; Status post bilateral knee replacements Social History Tobacco Use Types Packs/Day Years [...] 11:15 AM EST Office Visit Neurosurgery at [facility] [address] [place] [phone] Riley Parisi MD [address] [place] [address] Canelo Hodgson PA [address] [place] [address] documented as of this encounter Results * (ABNORMAL) XR Knee 1-2 Views Bilat (Generic) (11/10/2022 9:50 AM EDT) Anatomical Region Laterality Modality Knee Bilateral Digital Radiogra phy Impressions 11/10/2022 1:41 PM EDT 1. ??Status post left total knee arthroplasty. 4 x 6 mm lucency with sclerotic margins under the medial tibial tray is new since 2017 and could represent osteolysis. Recommend correlation with any clinical signs and symptoms of hardware loosening or infection. 2. ??Uncomplicated right total knee arthroplasty. 3. ??Unexpected finding: New 3.2 cm rim calcified lesion projecting over the medial subcutaneous soft tissues of the right knee, and new 1.1 cm rim calcified lesion projects over the subcutaneous fat of the medial calf. These findings could represent oil cysts from evolving fat necrosis, partially calcified thrombosed superficial venous varicosities, or partially calcified soft tissue mass lesions. Recommend ultrasound for further characterization. Thank you for letting us participate in the care of this patient. ??If you are a health care provider and have any questions regarding this report, please contact the number below. ??For patients who have questions please contact the health care center manager that requested your imaging first. ? Narrative 11/10/2022 1:41 PM EDT EXAMINATION: XR KNEE 1-2 VIEWS BILAT (GENERIC) CLINICAL HISTORY: bilateral knee pain (as entered by ordering provider in the order requisition) TECHNIQUE: AP and lateral views of each knee. COMPARISON: Bilateral knee radiographs 10/19/2016. FINDINGS: Left knee: Status post left total knee arthroplasty. No focal soft tissue swelling or knee joint effusion. 4 mm lucency at the bone metal interface of the femoral component is unchanged since 2017. No periprosthetic fracture. There is a new 4 x 6 mm focus of lucency with sclerotic margins under the medial tibial tray. Normal alignment of the knee joint. Right knee: Status post right total knee arthroplasty. No focal soft tissue swelling or knee joint effusion. Minimal periprosthetic lucency at the bone-metal and cement-bone interface of the femoral component is unchanged since 2017. No periprosthetic fracture or new bone resorption. Normal alignment of the knee joint. There is a new rim calcified 3.2 cm lesion projecting over the posterior medial subcutaneous soft tissues of the right knee. There is an additional 1.1 cm rim calcified lesion projecting over the subcutaneous fat of the medial calf on the AP view. These findings are new since 2017. Resulting Agency Comment Unexpected Finding Everton Mosley MD IMG DX ORDERABLES documented in this encounter Visit Diagnoses Diagnosis Primary osteoarthritis of both knees Primary localized osteoarthrosis, lower leg Status post bilateral knee replacements Status post bilateral knee replacements documented in this encounter Care Teams Planning Director Relationship Specialty Start Date End Date Estephania Langford MD [address] [place] [id number] PCP - General Family Medicine 11/04/22 documented as of this encounter
--- OUTSIDE RECORDS SUMMARY | 2024-06-18 00:50 | XMS_ITS | Encounter Summary ---
Author Organization [facility] [place] [address] Care Team Providers Care Student Teaching Coordinator Name Role Phone Estephania Langford MD Primary Care Provider [phone] Encounter Details Date Type Department Care Team (Latest Contact Info) Description 11/10/2022 9:38 AM EDT - 11/10/2022 11:59 PM EDT Hospital Encounter XRay at [address] [place] [address] Everton Mosley MD [facility] [place] [address] Status post bilateral knee replacements Discharge Disposition: Home Social History Tobacco Use Types Packs/Day Years [...] Sig Dispensed Refills Start Date End Date atorvastatin (Lipitor) 20 mg tablet Take 20 mg by mouth daily. aspirin 325 mg Tablet, Delayed Release (E.C.) Take 1 tablet by mouth 2 times daily. 30 tablet 01/14/2016 amoxicillin (AMOXIL) 500 mg capsule 2000mg, PO, Pre procedure 05/13/2010 documented as of this encounter Plan of Treatment Upcoming Encounters Date Type Department Care Team (Late st Contact Info) Description 06/21/2024 11:15 AM EST Office Visit Neurosurgery at [facility] [address] [place] [address] Riley Parisi MD 10 [facility] [place] [address] Canelo Hodgson PA 10 [facility] [address] documented as of this encounter Procedures Procedure Name Priority Date/Time Associated Diagnosis Comments XR KNEE AP AND LAT BILAT Routine 11/10/2022 9:50 AM EDT Status post bilateral knee replacements documented in this encounter Results * (ABNORMAL) XR Knee [...] have questions please contact the health care management specialist that requested your imaging first. ? Electronically signed by: Freya Litnon MD, [facility] ([phone]), at 11/10/2022 1:41 PM Narrative 11/10/2022 1:41 PM EDT EXAMINATION: XR [...] documented in this encounter Visit Diagnoses Diagnosis Status post bilateral knee replacements documented in this encounter Care Teams Student Teaching Coordinator Relationship Specialty Start Date End Date Estephania Langford MD [address] [place] [id number] PCP - General Family Medicine 11/04/22 documented as of this encounter
--- OUTSIDE RECORDS SUMMARY | 2024-06-18 00:50 | XMS_ITS | Encounter Summary ---
Author Organization [facility] [place] [address] Care Team Providers Care Humanities Teacher Name Role Phone Josr Rangel MD Primary Care Provider Unavailab le Encounter Details Date Type Department Care Team (Late st Contact Info) Description 08/17/2013 8:35 AM EDT Office [place] [address] Davey Gonzalez MD [facility] [place] [address] S/P knee replacement, right Discharge Disposition: Home Social History Tobacco Use [...] Sign Reading Time Taken Comments Blood Pressure 127/76 08/17/2013 9:20 AM EDT Pulse 76 08/17/2013 9:20 AM EDT Temperature - - Respiratory Rate - - Oxygen Saturation - - Inhaled Oxygen Concentration - - Weight 97.1 kg (214 lb) 08/17/2013 9:20 AM EDT Height 180.3 cm (5' 11) 08/17/2013 9:20 AM EDT Body Mass Index 29.85 08/17/2013 9:20 AM EDT documented in this encounter Progress Notes * Jw Robles PA - 08/17/2013 9:54 AM EDT Patient Name: Josr Bojorquez Sr. : 1950 MR#: [id number] Case Date: 05-07-2013 Surgeon: Luzma Gonzalez Procedure: right total knee replacement HPI: Josr Bojorquez Sr. is a very pleasant 63 y.o. year-old male who presents for a 3 months follow-up of the above procedure. The patient has been doing very well and his pain is markedly improved over preoperative status. No fevers, chills, nausea, vomiting, or symptoms of infection. Josr has been ambulating with no assistive device, he has been D/C'd from PT. He is hoping to get back to work next week. Physical Exam: Well-appearing male in no acute distress. Alert and Oriented x 3 and answers all questions appropriately. The incision is well healed, with no signs of infection. Post Op Right Knee Exam: Gait Abnormality: Normal Knee ROM: Extension:0 Flexion: 120 Alignment: 0-4 degrees Neutral Stability: A/P Translation <5mm. Varus <5mm Valgus <5mm Extension La degrees or less Patella Tracking: Normal Pulses Palpable: Right PT: Yes Right DP:Yes Motor/Sensory: Distal Motor: Normal Distal Sensory: Normal Quadriceps Strength: 4 ASSESSMENT/PLAN: 3 months post-op and doing well. Continue weightbearing as tolerated and working on range of motion, and we will see him back in 9 months for repeat examination. x-rays will be needed at that time. Patient may return to normal activities as his pain and function allow. Letter givento return to work We discussed the appropriate precautions surrounding dental prophylaxis. I stressed that he should avoid elective dental procedures for the first 6 months after surgery and then call the office for aprescription prior to any further dental work for the lifetime of the joint replacement. We also discussed maintaining good foot care and giving prompt attention to any source of infection throughoutthe body including foot ulcers and urinary tract infections. Signed: MUNIR NARAYAN 08/17/2013 documented in this encounter Plan of Treatment Upcoming Encounters Date Type Department Care Team (Late st Contact Info) Description 06/21/2024 11:15 AM EST Office Visit Neurosurgery at [facility] 10 [place] [address] Riley Parisi MD 10 [facility] [place] [address] Canelo Hodgson PA [address] [place] [address] documented as of this encounter Visit Diagnoses Diagnosis S/P knee replacement, right documented in this encounter Care Teams Humanities Teacher Relationship Specialty Start Date End Date Josr Rangel MD PCP - General 04/13/13 11/03/22 documented as of this encounter
--- OUTSIDE RECORDS SUMMARY | 2024-06-18 00:50 | XMS_ITS | Encounter Summary ---
Author Organization [facility] [place] [address] Care Team Providers Care Research Animal Facility Supervisor Name Role Phone Josr Rangel MD Primary Care Provider Unavailab le Encounter Details Date Type Department Care Team (Late st Contact Info) Description 11/27/2014 Orders [place] [address] [facility] [place] [address] Social History Tobacco Use Types Packs/Day Years [...] AM EST Office Visit Neurosurgery at [facility] [address] [place] [phone] Riley Parisi MD [address] [place] [address] Canelo Hodgson PA [address] [place] [address] documented as of this encounter Procedures Procedure Name Priority Date/Time Associated Diagnosis Comments FILM LIBRARY STORAGE ONLY ULTRASOUND STUDY Routine 11/27/2014 10:54 AM EDT documented in this encounter Results * Film Library- Storage only Ultrasound Study (11/27/2014 10:54 AM EDT) Anatomical Region Laterality Modality Other 11/27/2014 10:5 4 AM EDT Narrative 12/03/2014 10:59 AM EDT This is a Non-reportable exam Procedure Note ANABEL, UNSIGNED REPORT - 12/03/2014 This is a Non-reportable exam Arsen Garber MD [facility] FILM LIBRARY ORD ERABLES documented in this encounter Visit Diagnoses Not on filedocumented in this encounter Care Teams Research Animal Facility Supervisor Relationship Specialty Start Date End Date Josr Rangel MD PCP - General 04/13/13 11/03/22 documented as of this encounter
--- OUTSIDE RECORDS SUMMARY | 2024-06-18 00:50 | XMS_ITS | Encounter Summary ---
Author Organization [facility] [place] [address] Care Team Providers Care Mold Carrier Name Role Phone Josr Rangel MD Primary Care Provider Unavailab le Encounter Details Date Type Department Care Team (Late st Contact Info) Description 06/05/2014 [place] [address] Davey Gonzalez MD [facility] [place] [address] Knee joint replacement status, right Social History Tobacco Use Types Packs/Day [...] 11:15 AM EST Office Visit Neurosurgery at [facility] [address] [place] [address] Riley Parisi MD [place] [address] Canelo Hodgson PA [address] [place] [address] documented as of this encounter Visit Diagnoses Diagnosis Knee joint replacement status, right documented in this encounter Care Teams Mold Carrier Relationship Specialty Start Date End Date Josr Rangel MD PCP - General 04/13/13 11/03/22 documented as of this encounter
--- OUTSIDE RECORDS SUMMARY | 2024-06-18 00:50 | XMS_ITS | Encounter Summary ---
[place] [address] Care Team Providers Care Reception Manager Name Role Phone Shaheen Rangel MD Primary Care Provider [facility] Encounter Details Date Type Department Care Team (Latest Contact Info) Description 01/14/2016 8:39 AM EDT - 01/14/2016 11:59 PM EDT Hospital [place] [address] Mandie Glover, BATOOL Varicose veins Discharge Disposition: Home Social History Tobacco Use [...] Sig Dispensed Refills Start Date End Date aspirin 325 mg Tablet, Delayed Release (E.C.) Take 1 tablet by mouth 2 times daily. 30 tablet 01/14/2016 amoxicillin (AMOXIL) 500 mg capsule 2000mg, PO, Pre procedure 05/13/2010 documented as of this encounter Plan of Treatment Upcoming Encounters Date Type Department Care Team (Late Contact Info) Description 06/21/2024 11:15 AM EST Office Visit Neurosurgery at [facility] [place] [address] Riley Parisi MD 10 [place] [address] Canelo Hodgson PA 10 [place] [address] documented as of this encounter Procedures Procedure Name Priority Date/Time Associated Diagnosis Comments UNLATERAL VALVULAR INCOMP Routine 01/14/2016 8:40 AM EDT Varicose veins documented in this encounter Results * LE Unilateral Valvular Incomp Study (01/14/2016 8:40 AM EDT) VB Text Report Department: Vascular Surgery Lab Patient: [id number] (SHAHEEN PEREZ) CPT: 13534 ICD10: I82.811;I86.8;I8 3.811 Referring Physician: JUNIOR STILL ?? Indications: Right superficial venous thrombus. ICD10 Diagnosis Code: I82.811, I86.8, I83.811 Findings: Common Femoral Vein, Right ? Reflux?: Reflux Femoral Vein, Right ? Reflux?: Reflux Popliteal, Right ? Reflux?: Reflux GSV, Near SFJ, Right ? Reflux?: Reflux ? Diameter (mm): 6.5 ? Depth (mm): 22.0 GSV, Proximal Thigh, Right ? Reflux?: Reflux ? Diameter (mm): 7.2 ? Depth (mm): 12.7 ? Thrombus?: NON-OCCLUSIVE THROMBUS GSV, Mid Thigh, Right ? Reflux?: Reflux ? Diameter (mm): 5.7 ? Depth (mm): 4.7 ? Thrombus?: NON-OCCLUSIVE THROMBUS GSV, Distal Thigh, Right ? Diameter (mm): 16.7 ? Depth (mm): 2.8 ? Thrombus?: THROMBUS GSV, ??Knee, Right ? Diameter (mm): 17.0 ? Depth (mm): 2.6 ? Thrombus?: THROMBUS GSV Prox Calf, Right ? Reflux?: Reflux ? Diameter (mm): 4.4 ? Depth (mm): 1.9 ? Thrombus?: NON-OCCLUSIVE THROMBUS GSV, Mid Calf, Right ? Reflux?: Reflux ? Thrombus?: NON-OCCLUSIVE THROMBUS GSV, Distal Calf, Right ? Reflux?: Reflux SSV, Right ? Reflux?: Competent Interpretation: Right: The great saphenous vein has diffuse non-occlusive thrombus with some segments completely thrombosed. Multiple varicosities join the GSV. In areas patent, the GSV is incompetent (>2 seconds). The common femoral vein, femoral vein in the thigh, popliteal are incompetent (>2 seconds). The short saphenous vein is competent. No evidence of deep venous thrombus (fem-pop). Comparison: ??No previous study in our vascular lab database for comparison. Notification: Dr. Garber notified of the results. Electronically Signed by: MANDIE GONZALEZ on 2016-01-19 08:33:32 AM [facility] VB Text Report End of Report [facility] 01/14/2016 8:40 AM EDT Junior Still MD VASCULAR ORDERABLES [facility] documented in this encounter Visit Diagnoses Diagnosis Varicose veins Asymptomatic varicose veins documented in this encounter Care Teams Reception Manager Relationship Specialty Start Date End Date Shaheen Rangel MD PCP - General 04/13/13 11/03/22 documented as of this encounter
--- OUTSIDE RECORDS SUMMARY | 2024-06-18 00:50 | XMS_ITS | Encounter Summary ---
Author Organization [facility] [place] [address] Care Team Providers Care Plant Sciences Professor Name Role Phone Shaheen Rangel MD Primary Care Provider Unavailab le Encounter Details Date Type Department Care Team (Late st Contact Info) Description 11/22/2014 Orders Only [place] [address] Terri Pascual RN Varicose veins Social History Tobacco Use Types Packs/Day Years [...] 11:15 AM EST Office Visit Neurosurgery at [facility] [address] [place] [address] Riley Parisi MD [address] [place] [address] Canelo Hodgson PA [address] [place] [address] documented as of this encounter Results * LE Unilateral Valvular Incomp Study (01/14/2016 8:40 AM EDT) VB Text Report Department: Vascular Surgery Lab Patient: [id number] (SHAHEEN PEREZ) CPT: 54511 ICD10: I82.811;I86.8;I8 3.811 Referring Physician: JUNIOR STILL [...] veins documented in this encounter Care Teams Plant Sciences Professor Relationship Specialty Start Date End Date Shaheen Rangel MD PCP - General 04/13/13 11/03/22 documented as of this encounter
--- OUTSIDE RECORDS SUMMARY | 2024-06-18 00:50 | XMS_ITS | Encounter Summary ---
[place] [address] Care Team Providers Care Architecture Intern Name Role Phone Estephania Langford MD Primary Care Provider [phone] Encounter Details Date Type Department Care Team (Late st Contact Info) Description 06/14/2024 Abstract Neurosurgery at [facility] 10 [place] [phone] [facility] Social History Tobacco Use Types Packs/Day Years Used Date Smoking Tobacco: Former Cigarettes 2 10 Smokeless Tobacco: Never Tobacco Cessation:Counseling Given: Not Answered Comments:QUIT 35 YEARS AGO Alcohol Use Standard [...] 11:15 AM EST Office Visit Neurosurgery at [facility] [address] [place] [address] Riley Parisi MD [address] [facility] [place] [address] Canelo Hodgson PA [address] [facility] [place] [address] documented as of this encounter Visit Diagnoses Not on filedocumented in this encounter Care Teams Architecture Intern Relationship Specialty Start Date End Date Estephania Langford MD [address] [place] [address] PCP - General Family Medicine 11/04/22 documented as of this encounter
--- OUTSIDE RECORDS SUMMARY | 2024-06-18 00:50 | XMS_ITS | Encounter Summary ---
Author Organization [facility] [place] [address] Care Team Providers Care Account Receivable Associate Name Role Phone Estephania Langford MD Primary Care Provider Encounter Details Date Type Department Care Team (Late st Contact Info) Description 04/04/2024 Ancillary Procedure Radiology Library at [facility] [address] Estephania Langford MD [address] [place] [phone] Social History Tobacco Use Types Packs/Day Years [...] Office Visit Neurosurgery at [facility] [address] [place] [phone] Riley Parisi MD [address] [place] [address] Canelo Hodgson PA [address] [place] [address] documented as of this encounter Procedures Procedure Name Priority Date/Time Associated Diagnosis Comments FILM LIBRARY STORAGE ONLY MR SPINE Routine 04/04/2024 12:00 AM EST documented in this encounter Results * Film Library- Storage Only MR Spine (04/04/2024 12:00 AM EST) Narrative [facility] - 06/08/2024 9:29 PM EST This exam is auto-finalizing. It's purpose is for storage only. Estephania Langford MD [facility] FILM LIBRARY ORD ERABLES [place], [place] documented in this encounter Visit Diagnoses Not on filedocumented in this encounter Care Teams Account Receivable Associate Relationship Specialty Start Date End Date Estephania Langford MD [address] [address] PCP - General Family Medicine 11/04/22 documented as of this encounter
--- OUTSIDE RECORDS SUMMARY | 2024-06-18 00:50 | XMS_ITS | Encounter Summary ---
Author Organization [facility] [place] [address] Care Team Providers Care Design Cell Engineer Name Role Phone Estephania Langford MD Primary Care Provider [phone] Encounter Details Date Type Department Care Team (Latest Contact Info) Description 06/16/2024 Travel Social History Tobacco Use Types Packs/Day [...] AM EST Office Visit Neurosurgery at [facility] [address] [place] [phone] Riley Parisi MD [address] [place] [address] Canelo Hodgson PA [address] [place] [address] documented as of this encounter Visit Diagnoses Not on filedocumented in this encounter Care Teams Design Cell Engineer Relationship Specialty Start Date End Date Estephania Langford MD [address] [place] [address] PCP - General Family Medicine 11/04/22 documented as of this encounter
--- OUTSIDE RECORDS SUMMARY | 2024-06-18 00:50 | XMS_ITS | Encounter Summary ---
Author Organization [facility] [place] [address] Care Team Providers Care Joy Operator Name Role Phone Josr Rangel MD Primary Care Provider Unavailab le Encounter Details Date Type Department Care Team (Late st Contact Info) Description 12/03/2014 Orders [place] [address] Arsen Garber MD [facility] [place] [address] Social History Tobacco Use Types Packs/Day Years [...] at Danielle Lenny Olivarez [address] [place] [phone] Riley Parisi MD [address] [place] [address] Canelo Hodgson PA [address] [place] [address] documented as of this encounter Procedures Procedure Name Priority Date/Time Associated Diagnosis Comments FILM LIBRARY STORAGE ONLY ULTRASOUND STUDY Routine 12/03/2014 10:56 AM EDT documented in this encounter Results * Film Library- Storage only Ultrasound Study (12/03/2014 10:56 AM EDT) Anatomical Region Laterality Modality Other 12/03/2014 10:5 6 AM EDT Narrative 12/03/2014 11:02 AM EDT This is a Non-reportable exam Procedure Note ANABEL, UNSIGNED REPORT - 12/03/2014 This is a Non-reportable exam Arsen Garber MD [facility] FILM LIBRARY ORD ERABLES documented in this encounter Visit Diagnoses Not on filedocumented in this encounter Care Teams Joy Operator Relationship Specialty Start Date End Date Josr Rangel MD PCP - General 04/13/13 11/03/22 documented as of this encounter
--- OUTSIDE RECORDS SUMMARY | 2024-06-18 00:50 | XMS_ITS | Referral Summary ---
Author Organization [facility] Address [address] [place] [address] Care Team Providers Care Blasting Miner Name Role Phone Unavailable Primary Care Provider Unavailabl e Social History Tobacco Use Types Packs/Day Years Used Date Smoking Tobacco: Never Assessed Sex and Gender Information Value Date Recorded Sex Assigned at Not on file Legal Sex Male 12:43 EST Gender Identity Not on file Sexual Orientation Not on file Plan of Treatment Not on file
--- OUTSIDE RECORDS SUMMARY | 2024-06-18 00:50 | XMS_ITS | Encounter Summary ---
Author Organization [facility] [place] [address] Care Team Providers Care Heel Compressor Name Role Phone Josr Rangel MD Primary Care Provider Unavailab le Reason for Visit * Reason Comments Circulatory Problem ULCER VARICOSITIES R HEEL AND LEG Establish Care Encounter Details Date Type Department Care Team (Late st Contact Info) Description 01/07/2015 4:00 PM EDT Office Visit [place] [address] Arsen Garber MD [facility] [place] [address] Varicose veins of leg with swelling, right Discharge Disposition: Home Social History Tobacco [...] Sign Reading Time Taken Comments Blood Pressure 146/87 01/07/2015 4:11 PM EDT R A RM Pulse 80 01/07/2015 4:11 PM EDT Temperature - - Respiratory Rate 20 01/07/2015 4:11 PM EDT Oxygen Saturation - - Inhaled Oxygen Concentration - - Weight 102.5 kg (226 lb) 01/07/2015 4:11 PM EDT Height 179.1 cm (5' 10.5) 01/07/2015 4:11 PM ED T Body Mass Index 31.97 01/07/2015 4:11 PM EDT documented in this encounter Progress Notes * Arsen Garber MD - 01/09/2015 8:07 AM EDT OUTPATIENT VASCULAR SURGERY CONSULTATION Reason for Visit: History of Present Illness: This is a 64 y.o. Male with R LE varicose veins complicated by extensive superficial phlebitis. Pt has long h/o of R LE varicose veins. He has has 2 previous episodes of phlebitis in calf area. 08/28 he presented with extensive GSV phlebitis for which he was treated with ASA and serial duplex. He sub sequently had one episode of cellulitis LLE which is of concern as he has B TKR. No h/o of DVT, does develop leg swelling through day relieved with elevation at night, uses compression stockings though they do not prevent swelling. 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 Atherosclerotic Risk Factors: (n) DM (n) HTN (n) Hyperlipidemia reports that he has quit smoking. His smoking use included Cigarettes. He has a 20 pack-year smoking history. He has never used smokeless tobacco. Cardiovascular History: (n) Previous AR (n) Angina (n) CHF (n) Arrythmia (n) copd Patient Active Problem List Diagnosis Code ??? S/P knee replacement V43.65 ??? Obesity, unspecified 278.00 ??? Other and unspecified hyperlipidemia 272.4 ??? Asymptomatic varicose veins 454.9 ??? Osteoarthritis of knee s/p TKA Gonzalez 05/07/13 715.96 ??? Urinary retention 788.20 ??? Arthritis of knee 716.96 Current outpatient prescriptions: aspirin 325 mg EC tablet, Take 325 mg by mouth 2 times daily., Disp: , Rfl: ; amoxicillin (AMOXIL) 500 mg capsule, 2000mg, PO, Pre procedure, Disp: , Rfl: No Known Allergies Review of Systems: Constitutional (weight change, fever) - Denies Neuro (dizziness, seizures, numbness, tingling) - Denies Eyes (vision) - Denies Ears, nose, throat (hearing) - Denies Cardiovascular (CP) - Denies Respiratory (SOB) - Denies GI (abd pain, nausea, emesis, blood in stool) - Denies (hematuria, dysuria, frequency) - Denies Muscoloskeletal (extremity pain, weakness) - Denies Skin (ulcers, rashes) - Denies Functional Status/Social Hx: Lives at home, Family Hx: Negative for Thrombosis, Bleeding Disorders Physical Exam: BP 146/87 mmHg Pulse 80 [...] calf varicosities present. , brisk capillary refill Vascular Exam: R L Carotid 2/2 bruit () 2/2 bruit () Radial 2/2 2/2 Femoral 2/2 2/2 Popliteal DP 2/2 2/2 PT 2/2 2/2 Labs: No results found for this or any previous visit (from the past 72 hour(s)). Studies: Duplex from outside hosp shows no DVT.. Assessment and Plan: Symptomatic right lower extremity varicose veins complicated by GSV phlebitis. I have explained theetiology of varicose veins and chronic venous insufficiency (valve incompetence and venous hypertension). I have explained that these conditions can be bothersome, they are not dangerous and the mainreason for intervention is quality of life and disability from pain. I have explained various treatment options including compression therapy, injection and vein stripping or VNUS ablation with stab phlebectomy. I have explained that compression therapy (with stockings) and exercise are the first line treatment and while it will not make his veins regress, it will help him with his symptoms. I have also explained that the most appropriate surgical option depends in part at the level of venous valvular incompetence. I have suggested a venous duplex to assess valve function. I have suggested heget remeasured for a 30-40mmHg calf level compression stocking and suggested he renew this every 6-12 months. I will see him back in 4 months to review the duplex finding and discuss treatment options further. documented in this encounter Plan of Treatment Upcoming Encounters Date Type Department Care Team (Late st Contact Info) Description 06/21/2024 11:15 AM EST Office Visit Neurosurgery at [facility] [address] [place] [address] Riley Parisi MD 10 [facility] [place] [address] Canelo Hodgson PA 10 [facility] [place] [address] documented as of this encounter Visit Diagnoses Diagnosis Varicose veins of leg with swelling, right documented in this encounter Care Teams Heel Compressor Relationship Specialty Start Date End Date Josr Rangel MD PCP - General 04/13/13 11/03/22 documented as of this encounter
--- OUTSIDE RECORDS SUMMARY | 2024-06-18 00:50 | XMS_ITS | Encounter Summary ---
Author Organization [facility] [place] [address] Care Team Providers Care Copyright Clerk Name Role Phone Estephania Langford MD Primary Care Provider [phone] Encounter Details Date Type Department Care Team (Latest Contact Info) Description 11/10/2022 11:10 AM EDT Laboratory Appointment Lab [address] [place] [address] Status post bilateral knee replacements; Acute pain of left knee Social History Tobacco Use Types Packs/Day [...] 11:15 AM EST Office Visit Neurosurgery at [facility] [address] [place] [phone] Riley Parisi MD [address] [place], [place] [phone] Canelo Hodgson PA [address] [place] [address] documented as of this encounter Procedures Procedure Name Priority Date/Time Associated Diagnosis Comments CRP, ACUTE INFLAMMATION Routine 11/10/2022 10:51 AM EDT Status post bilateral knee replacements Acute pain of left knee HEMOGRAM Routine 11/10/2022 10:51 AM EDT Status post bilateral knee replacements Acute pain of left knee DIFFERENTIAL, AUTOMATED Routine 11/10/2022 10:51 AM EDT Status post bilateral knee replacements Acute pain of left knee SEDIMENTATION RATE Routine 11/10/2022 10 :51 AM EDT Status post bilateral knee replacements Acute pain of left knee CBC (WITH DIFF) Routine 11/10/2022 10:51 AM EDT Status post bilateral knee replacements Acute pain of left knee documented in this encounter Results * Differential, Automated (11/10/2022 10:51 AM EDT) Neutrophil % 61.1 % [facility] Neutrophil Absolute 3.98 1.70 - 6.10 x10(3)/[facility] Lymph % 24.5 % [facility] Lymphocytes Abs 1.6 0.9 - 3.2 x10(3)/[facility] Monocyte % 9.7 % [facility] Monocyte Abs 0.6 0.3 - 0.9 x10(3)/[facility] Eos % 3.8 % [facility] Eosinophils Abs 0.2 0.0 - 0.4 x10(3)/[facility] Basophil % 0.6 % [facility] Baso Absolute 0.0 0.0 - 0.1 x10(3)/[facility] Immature Gran % 0.30 % [facility] Comment: Immature granulocytes(IG's)percentage and absolute count will include metamyelocytes, myelocytes, and promyelocytes. Blood smears from CBCs yielding IG's will be scanned manually for concordance. If this scan disagrees with the automated IG or if promyelocytes are noted, a manual differential will be performed. Immature Gran Absolute 0.02 0.00 - 0.04 x10(3)/[facility] Blood 11/10/2022 10:5 1 AM EDT 11/10/2022 11:13 AM EDT Narrative Resulting Agency Comment Spec In Lab Destiny AMARAL HEMATOLOGY ORDERABLE S Performing Organization Address City/[facility] Co de Phone Number [facility] [place] [address] * Hemogram (11/10/2022 10:51 AM EDT) White Blood Cell 6.5 4.0 - 9.5 x10(3)/[facility] Red Blood Cell 4.74 4.58 - 5.54 x10(6)/[facility] Hemoglobin 14.2 13.7 - 16.5 g/dL [facility] Hematocrit 43.1 40.5 - 48.5 % [facility] Mean Cell Volume 90.9 82.9 - 93.[address] [facility] Mean Cell Hemoglobin 30.0 27.5 - 32.[address] [facility] Mean Cell Hemoglobin Concentration 32.9 32.0 - 35.7 g/dL [facility] Platelet 225 145 - 357 x10(3)/[facility] RDW Standard Deviation 42.5 36.0 - 45.[address] [facility] RDW coefficient of variation 12.6 11.4 - 13.8 % [facility] Mean Platelet Volume 10.0 7.6 - 12.[address] [facility] NRBC% auto 0.0 % [facility] NRBC Absolute 0.000 0.000 - 0.000 x10(3)/[facility] Blood 11/10/2022 10:5 1 AM EDT 11/10/2022 11:13 AM EDT Narrative Resulting Agency Comment Spec In Lab Destiny AMARAL HEMATOLOGY ORDERABLE S Performing Organization Address City/[facility]/ZIP Co de Phone Number [facility] [place] [address] * CRP, acute inflammation (11/10/2022 10:51 AM EDT) C-Reactive Protein <3.0 <=4.9 mg/L [facility] Blood 11/10/2022 10:5 1 AM EDT 11/10/2022 11:13 AM EDT Narrative Resulting Agency Comment Spec In Lab Davey Gonzalez MD CHEMISTRY ORDERABLES Performing Organization Address City/[facility]/ZIP Co de Phone Number [facility] [place] [address] * Sedimentation rate (11/10/2022 10:51 AM EDT) Sedimentation Rate Automated 8 3 - 46 mm/hr [facility] Comment: Effective April 25, 2019 new capillary photometric technology has resulted in a change in reference ranges. It is recommended that each ESR result be reviewed with its own age appropriate reference range. Blood 11/10/2022 10:5 1 AM EDT 11/10/2022 11:13 AM EDT Narrative Resulting Agency Comment Spec In Lab Davey Gonzalez MD HEMATOLOGY ORDERABLE S Performing Organization Address City/[facility] Co de Phone Number [facility] [place] [address] documented in this encounter Visit Diagnoses Diagnosis Status post bilateral knee replacements Acute pain of left knee documented in this encounter Care Teams Copyright Clerk Relationship Specialty Start Date End Date Estephania Langford MD [address] [place] [id number] PCP - General Family Medicine 11/04/22 documented as of this encounter
--- OUTSIDE RECORDS SUMMARY | 2024-06-18 00:50 | XMS_ITS | Encounter Summary ---
[place] [address] Care Team Providers Care Roll Shop Supervisor Name Role Phone Estephania Langford MD Primary Care Provider [phone] Reason for Visit * Reason Comments Follow-up Left knee pain Encounter Details Date Type Department Care Team (Late st Contact Info) Description 11/10/2022 11:00 AM EDT Office [place] [phone] Clinic, Dr Gonzalez Team None Status post bilateral knee replacements; Acute pain [...] Sign Reading Time Taken Comments Blood Pressure - - Pulse - - Temperature - - Respiratory Rate - - Oxygen Saturation - - Inhaled Oxygen Concentration - - Weight 100.2 kg (221 lb) 11/10/2022 10:03 AM EDT Height 180.3 cm (5' 11) 11/10/2022 10:03 AM EDT Body Mass Index 30.82 11/10/2022 10:03 AM EDT documented in this encounter Progress Notes * Marion, MUNIR Bueno - 11/10/2022 11:00 AM EDT Arthroplasty/Orthopaedic History: L TKA 2004 Gonzalez R TKA 2012 Gonzalez HPI: Josr Bojorquez Sr. is a very pleasant 72 y.o. year-old male and is now 18 and 10 years post left then right total knee replacement. The patient has been doing alright. Reports that for the past several weeks he has had some lateral and anterior pain in the left knee. No pain with walking. Painwith loaded flexion such as stairs or uneven terrain. After riding his ebike he noticed some stiffness in his quad. Some swelling. No instability. Using ice and cryocuff have helped. ROS: Denies: fever, chills, night sweats, nausea, or vomiting Ht 180.3 cm (5' 11) Wt 100.2 kg (221 lb) BMI 30.82 kg/m?? Physical Exam: Well-appearing male in no acute distress. Alert and Oriented x 3 and answers all questions appropriately. The incision is well healed, with no signs of infection. Knee Exam: Left Knee ROM: Extension:0 Flexion: 115 Alignment: 0-4 degrees Neutral Stability: A/P Translation <5mm Varus <5mm Valgus <5mm Extension La degrees or less Patella Tracking: Normal Pulses Palpable: Left PT:Yes Left DP:Yes Motor/Sensory: Distal Motor: Normal Distal Sensory: Normal Quadriceps Strength: 5 X-RAYS: Multiple radiographic views were obtained at my request and personally reviewed by me with the patient. X-rays show a well-placed prosthesis with no evidence of fracture, subsidence, loosening, or periprosthetic complication. Possible patellar poly wear Questionnaire Responses: 11/05/2022 9:36 AM [facility] Surgical Postop Visit KOOS JR Scores 50.01 11/05/2022 9:36 AM [facility] Response KOOS JR Scores 50.01 11/05/2022 9:36 AM Spine [facility] Response KOOS JR Scores 50.01 ASSESSMENT/PLAN: Mr. Bojorquez is a 72 y.o. year old male status post bilateral total knee replacement. Mild left knee pain Reviewed exam and imaging. Discussed strain versus prosthetic complication. Will order labs to ruleout infection. If these are elevated, will aspirate. Consider bone scan vs CT scan if pain does notresolve with continued conservative measures. All questions were answered. Signed: MUNIR Razo documented in this encounter Plan of Treatment Upcoming Encounters Date Type Department Care Team (Late st Contact Info) Description 06/21/2024 11:15 AM EST Office Visit Neurosurgery at [facility] [address] [place] [address] Riley Parisi MD [address] [place] [address] Canelo Hodgson PA [address] [place] [address] documented as of this encounter Results * CRP, acute inflammation (11/10/2022 10:51 AM EDT) C-Reactive Protein <3.0 <=4.9 mg/L [facility] Blood 11/10/2022 10:5 1 AM EDT 11/10/2022 11:13 AM EDT Narrative Resulting Agency Comment Spec In Lab Davey Gonzalez MD CHEMISTRY ORDERABLES Performing Organization Address [facility] Co de Phone Number [facility] [place] [address] * Sedimentation rate (11/10/2022 10:51 AM EDT) Sedimentation Rate Automated 8 3 - 46 mm/hr [facility] Comment: Effective April 25, 2019 new capillary photometric technology has resulted in a change in reference ranges. It is recommended that each ESR result be reviewed with its own age appropriate reference range. Blood 11/10/2022 10:5 1 AM EDT 11/10/2022 11:13 AM EDT Narrative Resulting Agency Comment Spec In Lab Davey Gonzalez MD [place] [address] documented in this encounter Visit Diagnoses Diagnosis Status post bilateral knee replacements Acute pain of left knee documented in this encounter Care Teams Roll Shop Supervisor Relationship Specialty Start Date End Date Estephania Langford MD [address] [place] [address] PCP - General Family Medicine 11/04/22 documented as of this encounter
--- OUTSIDE RECORDS SUMMARY | 2024-06-18 00:50 | XMS_ITS | Encounter Summary ---
[place] [address] Care Team Providers Care Plan Manager Name Role Phone Josr Rangel MD Primary Care Provider Unavailab le Reason for Referral * Physical Therapy (Routine) - Closed by system - unspecified Specialty Diagnoses / Procedures Referred By Sushil t Referred To Contact Physical Therapy Diagnoses Knee joint replacement by other means [facility] [address] [place] [address] Referral ID Status Reason Start Date Expiration Date Visits Requested Visits Authorized [id number] Closed by system - unspecified Evaluate and Treat 05/21/2013 11/17/2013 12 12 Encounter Details Date Type Department Care Team (Late st Contact Info) Description 05/21/2013 Orders [place] [address] Jennifer March, RN Knee joint replacement by other means (Primary Dx) Social History Tobacco Use Types Packs/Day Years [...] AM EST Office Visit Neurosurgery at [facility] [address] [place] [address] Riley Parisi MD [address] [place] [address] Canelo Hodgson PA [address] [place] [address] Scheduled Referrals Name Type Priority Associated Diagnoses Orde r Schedule Referral to Physical Therapy Outpatient Referral Routine Knee joint replacement by other means Ordered: 05/21/2013 documented as of this encounter Visit Diagnoses Diagnosis Knee joint replacement by other means- Primary documented in this encounter Care Teams Plan Manager Relationship Specialty Start Date End Date Josr Rangel MD PCP - General 04/13/13 11/03/22 documented as of this encounter
--- OUTSIDE RECORDS SUMMARY | 2024-06-18 00:50 | XMS_ITS | Encounter Summary ---
[place] [address] Care Team Providers Care Associate Team Physician Name Role Phone Estephania Langford MD Primary Care Provider [phone] Reason for Visit * Reason Onset Date Comments Other 12/16/2022 Encounter Details Date Type Department Care Team (Late st Contact Info) Description 12/16/2022 Tele[place] [address] Clinic, Dr Gonzalez Team None Other Social History Tobacco Use Types Packs/Day Years [...] encounter Miscellaneous Notes * Telephone Encounter - Soo Bauer - 12/16/2022 9:55 AM EDT LM for Josr to give us a call back. I do not see any indication that we sent him that letter or wanted him to get an US. Not sure why he received that. If he wants to take a picture of letter and send it in the referral I am happy to take a look at it to see if I can figure out what it was for * Telephone Encounter - Amaya Cohen - 12/16/2022 9:43 AM EDT Name of person calling: Patient/ Josr Have you had Surgery? Yes If so when? 2004 and 2012 Who was the Surgeon? Gonzalez What is the question: Patient states he received certified mail today [place] [facility] [place] want himto have an [place] done. Patient confused on why he needs an US and asking for a call back to discuss further. Best number to reach the caller: [phone] documented in this encounter Plan of Treatment Upcoming Encounters Date Type Department Care Team (Late st Contact Info) Description 06/21/2024 11:15 AM EST Office Visit Neurosurgery at [facility] [address] [place] [address] Riley Parisi MD [address] [facility] [place] [address] Canelo Hodgson PA [address] [facility] [place] [address] documented as of this encounter Visit Diagnoses Not on filedocumented in this encounter Care Teams Associate Team Physician Relationship Specialty Start Date End Date Estephania Langford MD [address] [place] [address] PCP - General Family Medicine 11/04/22 documented as of this encounter
--- OUTSIDE RECORDS SUMMARY | 2024-06-18 00:50 | XMS_ITS | Encounter Summary ---
[place] [address] Care Team Providers Care Dry Wall Finisher Name Role Phone Josr Rangel MD Primary Care Provider Unavailab le Reason for Visit * Reason Comments Follow Up Surgery s/p right tka dos Encounter Details Date Type Department Care Team (Latest Contact Info) Description 06/14/2013 9:40 AM EST Office [place] [address] Davey Gonzalez MD [facility] DR [place] [address] Osteoarthritis of knee s/p TKA [place] 05/07/13 (Primary Dx) Discharge Disposition: Home Social History Tobacco Use [...] Sign Reading Time Taken Comments Blood Pressure 130/87 06/14/2013 10:38 AM EST Pulse 93 06/14/2013 10:38 AM EST Temperature 36.6 ??C (97.9 ??F) 06/14/2013 10:[address] Respiratory Rate - - Oxygen Saturation - - Inhaled Oxygen Concentration - - Weight 97.2 kg (214 lb 4.8 oz) 06/14/2013 10:38 AM EST Height 180.3 cm (5' 11) 06/14/2013 10:38 AM EST Body Mass Index 29.89 06/14/2013 10:38 AM EST documented in this encounter Progress Notes * Davey Gonzalez MD - 06/14/2013 10:33 AM EST Patient Name: Josr Bojorquez Sr. : 1950 MR#: [id number] Case Date: 05/07/2013 Surgeon: Surgeon(s) and Role: * Davey Gonzalez MD - Primary * Arsen Marroquin III, MD Preoperative diagnosis: osteoarthritis Postoperative diagnosis: osteoarthritis Procedure(s): RIGHT TOTAL KNEE ARTHROPLASTY MODIFIER STABILIZED ROTATING PLATFORM DEPUY HPI: Josr Bojorquez Sr. is a very pleasant 63 y.o. year-old male who presents for a 5 week follow-up of the above procedure. The patient has been doing very well and his pain is markedly improved over preoperative status. Currently taking Tylenol PM 500 mg 2 as needed for analgesia and applying ice intermittently, with good effect. Patient advised that he could take Ibuprofen twice a day for painas needed. No fevers, chills, nausea, vomiting, or symptoms of infection. Sleep not back to normal yet. Appetite back to usual. Josr has been ambulating with without assistive device and working withPT. His course of Coumadin has been completed and is currently taking ASA 325 mg twice daily for DVT prophylaxis. Physical Exam: Well-appearing male in no acute distress. Alert and Oriented x 3 and answers all questions appropriately. The incision is well healed, with no signs of infection. Calves soft, non tender. Post Op Right Knee Exam: Gait Abnormality: Normal Knee ROM: Extension:0 Flexion: 125 Alignment: 0-4 degrees Neutral Stability: A/P Translation <5mm. Varus <5mm Valgus <5mm Extension La degrees or less Patella Tracking: Normal Pulses Palpable: Right PT: Yes Right DP:Yes Motor/Sensory: Distal Motor: Normal Distal Sensory: Normal Quadriceps Strength: 5 X-RAYS: X-rays show a well-placed prosthesis with no evidence of fracture or loosening. ASSESSMENT/PLAN: Five weeks post-op and doing well. Continue weightbearing as tolerated and workingon range of motion, and we will see him back in 8 weeks for repeat examination. No x-rays will be needed at that time. Patient may return to normal activities as his pain and function allow. We discussed the appropriate precautions surrounding dental [...] including foot ulcers and urinary tract infections. In the presence of Dr. Gonzalez, Alyssa Cortés RN is documenting in this note as a scribe. documented in this encounter Plan of Treatment Upcoming Encounters Date Type Department Care Team (Late st Contact Info) Description 06/21/2024 11:15 AM EST Office Visit Neurosurgery at [facility] [address] [place] [address] Riley Parisi MD 10 [facility] [place] [address] Canelo Hodgson PA 10 [facility] [place] [address] documented as of this encounter Visit Diagnoses Diagnosis Osteoarthritis of knee s/p TKA Gonzalez 05/07/13- Primary Osteoarthrosis, unspecified whether generalized or localized, lower leg documented in this encounter Care Teams Dry Wall Finisher Relationship Specialty Start Date End Date Josr Rangel MD PCP - General 04/13/13 11/03/22 documented as of this encounter
--- OUTSIDE RECORDS SUMMARY | 2024-06-18 00:50 | XMS_ITS | Encounter Summary ---
[place] [address] Care Team Providers Care Director College Name Role Phone Josr Rangel MD Primary Care Provider Unavailab le Encounter Details Date Type Department Care Team (Late st Contact Info) Description 05/30/2013 Anti-Coag Telephone [place] [phone] Jennifer March RN Arthritis of knee Social History Tobacco [...] Progress Notes * Jennifer March RN - 05/30/2013 4:54 PM EST Anticoagulation Therapy Nurse Visit Josr Bojorquez Sr. 1950 Dr. Gonzalez Indication: DVT Prophylaxis S/P Joint Replacement Duration of Treatment: 28 days ends: June 03, 2013 Therapeutic Range: 2.0-3.0 INR: 1.6 Drawn by: [facility] Phone call with dosing instructions. documented in this encounter Plan of Treatment Upcoming Encounters Date Type Department Care Team (Late st Contact Info) Description 06/21/2024 11:15 AM EST Office Visit Neurosurgery at 10 [place] [address] Riley Parisi MD 10 [place] [address] Canelo Hodgson PA 10 [place] [address] documented as of this encounter Procedures Procedure Name Priority Date/Time Associated Diagnosis Comments EXTERNAL LAB RESULTS Routine 05/30/2013 documented in this encounter Results * (ABNORMAL) External Lab Results (05/30/2013) International Normalization Ratio 0.9 - 1.1 Comment:[facility] 05/30/2013 Historical Provider CHEMISTRY ORDERAB LES documented in this encounter Visit Diagnoses Diagnosis Arthritis of knee Unspecified arthropathy, lower leg documented in this encounter Care Teams Director College Relationship Specialty Start Date End Date Josr Rangel MD PCP - General 04/13/13 11/03/22 documented as of this encounter
--- OUTSIDE RECORDS SUMMARY | 2024-06-18 00:50 | XMS_ITS | Encounter Summary ---
Author Organization [facility] [place] [address] Care Team Providers Care Tower Excavator Operator Name Role Phone Josr Rangel MD Primary Care Provider Unavailab le Reason for Visit * Reason Comments Aftercare Of Tjr bilateral TKA R 04/16 07/26 L 2004 Encounter Details Date Type Department Care Team (Late st Contact Info) Description 10/29/2016 5:30 PM EDT Office [place] [address] Mark Rosa PA [facility] DR ORTHOPAEDIC [place] [address] Primary osteoarthritis of both knees Social History Tobacco Use Types Packs/Day Years [...] Sign Reading Time Taken Comments Blood Pressure 125/74 10/29/2016 10:23 AM EDT Pulse 66 10/29/2016 10:23 AM EDT Temperature - - Respiratory Rate - - Oxygen Saturation - - Inhaled Oxygen Concentration - - Weight 98.9 kg (218 lb) 10/29/2016 10:23 AM EDT Height 177.8 cm (5' 10) 10/29/2016 10:23 AM EDT Body Mass Index 31.28 10/29/2016 10:23 AM EDT documented in this encounter Progress Notes * Mark Rosa PA - 10/29/2016 5:30 PM EDT Arthroplasty/Orthopaedic History: 1. Left TKA Gonzalez 2004 2. Right TKA Gonzalez 2012 HPI: 66 y.o. year-old male returns he has had both knees replaced. He continues to do well. He has no complaints in regard to the knees. His health is stable aside from the joints. ROS: Denies: fever, chills, night sweats, nausea, or vomiting BP 125/74 (BP Location (NBP): Left arm, Patient Position: Sitting, BP Cuff Sizes: Large Adult (32-43 cm)) Pulse 66 Ht 177.8 cm (5' 10) Wt 98.9 kg (218 lb) BMI 31.28 kg/m2 Physical Exam: Well-appearing male in no acute distress. Alert and Oriented x 3 and answers all questions appropriately. Ambulatory without assist or antalgia. There is no effusion to either knee. Nopain or laxity with varus and valgus stress. Excellent quad strength. X-RAYS: x-rays reviewed with the patient. No evidence of wear or subsidence. No osteolysis or stress shielding. No evidence of complication. Questionnaire Responses: [facility] Surgical Postop Visit 10/29/2016 PROMIS-10 General Health Very Good PROMIS-10 Quality of Life Excellent PROMIS-10 Physical Health Very Good PROMIS-10 Mental Health Excellent PROMIS-10 Social Activity Excellent PROMIS-10 Everyday Activities Completely PROMIS-10 Pain 0 -No Pain PROMIS-10 Fatigue Mild PROMIS-10 Social Roles Very Good PROMIS-10 Anxious or Depressed Never PROMIS PHYSICAL HEALTH SCORE 57.7 PROMIS MENTAL HEALTH SCORE 67.6 KOOS JR Scores 84.6 Problems with surgical incision/wound after surgery No Gone to ER since knee surgery Yes Where was ER located? [facility] Date of ER visit 07/14/2014 Reason for ER visit cut on finger Admitted to hospital since recent ortho surgery No Additional surgery on same body part No TKA Grade 10 Pain in other KNEE None Back pain at this moment None Satisfaction with Treatment Satisfied Choose Same Treatment Again Definitely yes Orthopeadics [facility] Response 10/29/2016 KOOS JR Scores 84.6 Spine [facility] Response 10/29/2016 KOOS JR Scores 84.6 ASSESSMENT/PLAN: Mr. Bojorquez is a 66 y.o. year old male status post right and left total knee replacement Doing well postoperatively. We discussed ongoing considerations. We'll see him again in 3 years or sooner as needed. We discussed the appropriate precautions surrounding dental prophylaxis; according to the AAOS Appropriate Use Criteria we do not recommend antibiotic use prior to dental procedures for Josr. Recommended antibiotic: N/A Signed: MUNIR BRYSON 10/29/2016 documented in this encounter Plan of Treatment Upcoming Encounters Date Type Department Care Team (Late st Contact Info) Description 06/21/2024 11:15 AM EST Office Visit Neurosurgery at [facility] 10 [place] [address] Riley Parisi MD 10 [facility] [place] [address] Canelo Hodgson PA 10 [facility] [place] [address] documented as of this encounter Visit Diagnoses Diagnosis Primary osteoarthritis of both knees Primary localized osteoarthrosis, lower leg documented in this encounter Care Teams Tower Excavator Operator Relationship Specialty Start Date End Date Josr Rangel MD PCP - General 04/13/13 11/03/22 documented as of this encounter
--- OUTSIDE RECORDS SUMMARY | 2024-06-18 00:50 | XMS_ITS | Encounter Summary ---
Author Organization [facility] [place] [address] Care Team Providers Care Diesel Motor Mechanic Name Role Phone Estephania Langford MD Primary Care Provider [phone] Encounter Details Date Type Department Care Team (Late st Contact Info) Description 11/04/2022 Orders [place] [address] Gabbie Lorenzana PA [facility] [place] [address] Social History Tobacco Use Types Packs/Day Years [...] Neurosurgery at [facility] 10 [facility] [place] [address] Riley Parisi MD [address] [address] Canelo Hodgson PA [address] [place] [address] documented as of this encounter Visit Diagnoses Not on filedocumented in this encounter Care Teams Diesel Motor Mechanic Relationship Specialty Start Date End Date Estephania Langford MD [address] [facility] [place] [address] PCP - General Family Medicine 11/04/22 documented as of this encounter
--- OUTSIDE RECORDS SUMMARY | 2024-06-18 00:50 | XMS_ITS | Encounter Summary ---
[place] [address] Care Team Providers Care Slitting Machine Feeder Name Role Phone Josr Rangel MD Primary Care Provider Unavail le Encounter Details Date Type Department Care Team (Late st Contact Info) Description 05/17/2013 Anti-Coag Telephone [place] [phone] Jennifer March, RN Arthritis of knee Social [...] Progress Notes * Jennifer March RN - 05/17/2013 10:32 AM EST Anticoagulation Therapy Nurse Visit Josr Bojorquez Sr. 1950 Dr. Gonzalez Indication: DVT Prophylaxis S/P Joint Replacement Duration of Treatment: 28 days ends: June 03, 2013 Therapeutic Range: 2.0-3.0 INR: 2.0 Drawn by: [facility] Patient presents with no signs of bleeding [...] Visit Neurosurgery at [facility] 10 [place] [address] Riley Parisi MD 10 [facility] [place] [address] Canelo Hodgson PA 10 [facility] [place] [address] documented as of this encounter Procedures Procedure Name Priority Date/Time Associated Diagnosis Comments EXTERNAL LAB RESULTS Routine 05/17/2013 documented in this encounter Results * (ABNORMAL) External Lab Results (05/17/2013) INR, POC 2.0(Externa l Lab) 0.9 - 1.1 05/17/2013 Historical Provider CHEMISTRY ORDERAB LES documented in this encounter Visit Diagnoses Diagnosis Arthritis of knee Unspecified arthropathy, lower leg documented in this encounter Care Teams Slitting Machine Feeder Relationship Specialty Start Date End Date Josr Rangel MD PCP - General 04/13/13 11/03/22 documented as of this encounter
--- OUTSIDE RECORDS SUMMARY | 2024-06-18 00:50 | XMS_ITS | Encounter Summary ---
Author Organization [facility] [place] [address] Care Team Providers Care Fur Sewer Name Role Phone Josr Rangel MD Primary Care Provider Unavailab le Reason for Visit * Reason Comments Aftercare Of Tjr R TKA 05/07/13, L TATUM Urena 2004 Encounter Details Date Type Department Care Team (Late st Contact Info) Description 08/02/2014 10:00 AM EDT Office [place] [address] Davey Gonzalez MD [facility] DR ORTH[place] [address] Status post bilateral knee replacements (Primary Dx) Discharge Disposition: Home Social History [...] Sign Reading Time Taken Comments Blood Pressure 128/72 08/02/2014 10:45 AM EDT Pulse 65 08/02/2014 10:45 AM EDT Temperature - - Respiratory Rate - - Oxygen Saturation - - Inhaled Oxygen Concentration - - Weight 102.5 kg (226 lb) 08/02/2014 10:45 AM EDT fully clothed Height 180.3 cm (5' 11) 08/02/2014 10:45 AM EDT verbal Body Mass Index 31.52 08/02/2014 10:45 AM EDT documented in this encounter Progress Notes * Davey Gonzalez MD - 08/02/2014 10:50 AM EDT Subjective: Patient ID: Josr Bojorquez Sr. is a 64 y.o. male. Case Date: 05-07-2013 Procedure: RIGHT total knee replacement SURGERY DATE: 04/29/2005 Actual Procedures: TOTAL KNEE ARTHROPLASTY /LEFT/STAB.ROTATING PLATFORM/ANTIBIOTIC CEMENT HPI Doing very well at this point. He is happy with how his knees are functioning. He has essentially zero pain. He does have an occasional click in his right knee when he goes from a hyperflexed position to extension especially on his motorcycle. He's noticed no swelling or other problems in the knee. No Known Allergies Current Outpatient Prescriptions on File Prior to Visit Medication Sig Dispense Refill ??? aspirin 325 mg EC tablet Take 325 mg by mouth 2 times daily. ??? amoxicillin (AMOXIL) 500 mg capsule 2000mg, PO, Pre procedure ??? [DISCONTINUED] acetaminophen (TYLENOL) 500 mg tablet Take 2 tablets by mouth every 8 hours. Last day for scheduled dosing = May.17. Then may take every 8 hours as needed. Do not take more than 4,000 mg of acetaminophen in 24 hours. No current facility-administered medications on file prior to visit. Patient Active Problem List Diagnosis Code ??? S/P knee replacement V43.65 ??? Obesity, unspecified 278.00 ??? Other and unspecified hyperlipidemia 272.4 ??? Asymptomatic varicose veins 454.9 ??? Osteoarthritis of knee s/p TKA Carlos 05/07/13 715.96 ??? Urinary retention 788.20 ??? Arthritis of knee 716.96 Review of Systems Objective: Physical Exam Blood pressure 128/72, pulse 65, height 180.3 cm (5' 11), weight 102.513 kg (226 lb). I have made the following determinations: Post Op Left Knee Exam: Gait Abnormality: Normal Knee ROM: Extension:0 Flexion: 115 Alignment: 0-4 degrees Neutral Stability: A/P Translation <5mm Varus (lateral stability) <5mm Valgus (medial stability) <5mm Extension La degrees or less Patella Tracking: Normal Pulses Palpable: Left PT:Yes Left DP:Yes Motor/Sensory: Distal Motor: Normal Distal Sensory: Normal Quadriceps Strength:5 I have made the following determinations: Post Op Right Knee Exam: Gait Abnormality: Normal Knee ROM: Extension:0 Flexion: 115 Alignment: 0-4 degrees Neutral Stability: A/P Translation <5mm. Varus (lateral stability)<5mm Valgus (medial stability) <5mm Extension La degrees or less Patella Tracking: Normal Pulses Palpable: Right PT: Yes Right DP:Yes Motor/Sensory: Distal Motor: Normal Distal Sensory: Normal Quadriceps Strength: 5 Imagin views of both knees today reveal well fixed well aligned implants. He has minor stress shielding under the flanges but there is no evidence of loosening or thinning of the poly. Assessment and Plan: S/P BTKA SEQUENTIAL The patient his and I discussed the findings. we discussed the usual precautions. We discussed antibiotic used around dental procedures or other procedures. He would like to continue to do that. We discussed wear given the time out on his left knee. I advised him about signs and symptoms of wear. We'll see him back in 2 years for routine followup with x-rays of both knees. He is to call if any questions or concerns. documented in this encounter Plan of Treatment Upcoming Encounters Date Type Department Care Team (Late st Contact Info) Description 06/21/2024 11:15 AM EST Office Visit Neurosurgery at [facility] 10 [place] [address] Riley Parisi MD [address] [facility] [place] [address] Canelo Hodgson PA [facility] [place] [address] documented as of this encounter Visit Diagnoses Diagnosis Status post bilateral knee replacements- Primary documented in this encounter Care Teams Fur Sewer Relationship Specialty Start Date End Date Josr Rangel MD PCP - General 04/13/13 11/03/22 documented as of this encounter
--- OUTSIDE RECORDS SUMMARY | 2024-06-18 00:50 | XMS_ITS | Encounter Summary ---
Author Organization [facility] [place] [address] Care Team Providers Care News Reel Cameraman Name Role Phone Josr Rangel MD Primary Care Provider Unavailab le Encounter Details Date Type Department Care Team (Late st Contact Info) Description 07/30/2014 Orders [place] [address] Davey Gonzalez MD [facility] [place] [address] Knee joint replacement status, left Social History [...] 11:15 AM EST Office Visit Neurosurgery at [facility] [address] [place] [address] Riley Parisi [place] [address] Canelo Hodgson PA [address] [place] [address] documented as of this encounter Results * XR Standing Alingment [...] Diagnoses Diagnosis Knee joint replacement status, left Knee joint replacement status, left documented in this encounter Care Teams News Reel Cameraman Relationship Specialty Start Date End Date Josr Rangel MD PCP - General 04/13/13 11/03/22 documented as of this encounter
--- OUTSIDE RECORDS SUMMARY | 2024-06-18 00:50 | XMS_ITS | Encounter Summary ---
Author Organization [facility] [place] [address] Care Team Providers Care Sawdust Drier Name Role Phone Estephania Langford MD Primary Care Provider [phone] Encounter Details Date Type Department Care Team (Latest Contact Info) Description 11/10/2022 Travel Social History Tobacco Use Types Packs/Day [...] AM EST Office Visit Neurosurgery at [facility] 10 [place] [address] Riley Parisi MD [address] [place] [address] Canelo Hodgson PA [address] [place] [address] documented as of this encounter Visit Diagnoses Not on filedocumented in this encounter Care Teams Sawdust Drier Relationship Specialty Start Date End Date Estephania Langford MD [address] [facility] [place] [address] PCP - General Family Medicine 11/04/22 documented as of this encounter
--- OUTSIDE RECORDS SUMMARY | 2024-06-18 00:50 | XMS_ITS | Encounter Summary ---
Author Organization [facility] [place] [address] Care Team Providers Care Line Mechanic Name Role Phone Josr Rangel MD Primary Care Provider Unavailab le Reason for Visit * Reason Onset Date Comments Anticoagulation 05/30/2013 Encounter Details Date Type Department Care Team (Late st Contact Info) Description 05/30/2013 Telephone Orthopa[place] [address] Davey Gonzalez MD [facility] [place] [address] Anticoagulation Social History Tobacco Use Types Packs/Day Years [...] Telephone Encounter - Jennifer March RN - 05/30/2013 4:58 PM EST Please see anticoagulation note of the same date. * Telephone Encounter - Odette Golden - 05/30/2013 4:50 PM EST Patient called and states that he has not yet been told what his coumadin dosing will be for tonight. He said that his labs have been faxed to us. Please call him back at [phone]. documented in this encounter Plan of Treatment Upcoming Encounters Date Type Department Care Team (Late st Contact Info) Description 06/21/2024 11:15 AM EST Office Visit Neurosurgery at [facility] 10 [place] [address] Riley Parisi MD 10 [facility] [place] [address] Canelo Hodgson PA 10 [facility] [place] [address] documented as of this encounter Visit Diagnoses Not on filedocumented in this encounter Care Teams Line Mechanic Relationship Specialty Start Date End Date Josr Rangel MD PCP - General 04/13/13 11/03/22 documented as of this encounter
--- OUTSIDE RECORDS SUMMARY | 2024-06-18 00:50 | XMS_ITS | Encounter Summary ---
[place] [address] Care Team Providers Care Plumbing Inspector Name Role Phone Estephania Langford MD Primary Care Provider [phone] Reason for Referral * Consultation (NONA) - Authorized Specialty Diagnoses / Procedures Referred By Contac t Referred To Contact Neurosurgery Diagnoses Spondylosis without myelopathy or radiculopathy, lumbar region Estephania Langford MD [address] [place] [address] [facility] Neurosurgery [address] [place] [phone] Referral ID Status Reason Start Date Expiration Date Visits Requested Visits Authorized [id number] Authorized Consult, Test & Treat 06/08/2024 06/08/2025 99 99 Encounter Details Date Type Department Care Team (Late st Contact Info) Description 06/08/2024 Transcribe Orders eDH Incoming Referrals [phone] Estephania Langford MD [address] [place], [place] [address] Spondylosis without myelopathy or radiculopathy, lumbar region Social History Tobacco Use Types Packs/Day Years [...] 11:15 AM EST Office Visit Neurosurgery at [facility] 10 [place] [address] Riley Parisi MD 10 [facility] [place] [address] Canelo Hodgson PA 10 [facility] [place] [address] Scheduled Referrals Name Type Priority Associated Diagnoses Order Schedule Referral to Neurosurgery Outpatient Referral Routine Spondylosis without myelopathy or radiculopathy, lumbar region Ordered: 06/08/2024 documented as of this encounter Visit Diagnoses Diagnosis Spondylosis without myelopathy or radiculopathy, lumbar region documented in this encounter Care Teams Plumbing Inspector Relationship Specialty Start Date End Date Estephania Langford MD [address] [place] [address] PCP - General Family Medicine 11/04/22 documented as of this encounter
--- OUTSIDE RECORDS SUMMARY | 2024-06-18 00:50 | XMS_ITS | Encounter Summary ---
[place] [address] Care Team Providers Care Physical Therapy Aid Name Role Phone Josr Rangel MD Primary Care Provider Unavailab le Reason for Visit * Reason Onset Date Comments Questions 11/26/2014 Encounter Details Date Type Department Care Team (Late st Contact Info) Description 11/26/2014 Telephone [place] [address] Davey Gonzalez MD [facility] [place] [address] Questions Social History Tobacco Use Types Packs/Day Years [...] encounter Miscellaneous Notes * Telephone Encounter - Chantal Horowitz - 11/26/2014 4:53 PM EDT Patient decided to go onto my to contact Dr. Gonzalez directly documented in this encounter Plan of Treatment Upcoming Encounters Date Type Department Care Team (Late st Contact Info) Description 06/21/2024 11:15 AM EST Office Visit Neurosurgery at [address] [place] [address] Riley Parisi MD [address] [place] [address] Canelo Hodgson PA [address] [place] [address] documented as of this encounter Visit Diagnoses Not on filedocumented in this encounter Care Teams Physical Therapy Aid Relationship Specialty Start Date End Date Josr Rangel MD PCP - General 04/13/13 11/03/22 documented as of this encounter
--- OUTSIDE RECORDS SUMMARY | 2024-06-18 00:50 | XMS_ITS | Encounter Summary ---
[place] [address] Care Team Providers Care Delivery Helper Name Role Phone Josr Rangel MD Primary Care Provider Unavailab le Encounter Details Date Type Department Care Team (Late st Contact Info) Description 05/28/2013 Anti-Coag Telephone Visit [place] [phone] Alyssa Cortés, RN Arthritis of knee Social History Tobacco [...] as of this encounter Progress Notes * Alyssa Cortés, RN - 05/28/2013 4:41 PM EST Anticoagulation Therapy Nurse Visit Josr Bojorquez Sr. 1950 Dr[address] Gonzalez Indication: DVT Prophylaxis S/P Joint Replacement Duration of Treatment: 28 days ends: June 03, 2013 Therapeutic Range: 2.0-3.0 INR: 3.5 Drawn by: [employer] Voice message left with dosing instructions for 05/28/13. He was instructed not to do any aggressivePT. Recheck INR 05/29/13. Received a call back from Mr. Bojorquez. Dosed through 05/30/13, but will recheck on 05/30/13. He will call back if he needs us to call the OP lab. Patient presents with no signs of bleeding [...] 11:15 AM EST Office Visit Neurosurgery at [facility] [address] [place] [address] Riley Parisi MD 10 [facility] [place] [address] Canelo Hodgson PA 10 [facility] [address] documented as of this encounter Procedures Procedure Name Priority Date/Time Associated Diagnosis Comments EXTERNAL LAB RESULTS Routine 05/28/2013 documented in this encounter Results * (ABNORMAL) External Lab Results (05/28/2013) INR, POC 3.5(Ballistics Teacher al Lab) 0.9 - 1.1 Comment:Cammy 05/28/2013 Historical Provider CHEMISTRY ORDERAB LES documented in this encounter Visit Diagnoses Diagnosis Arthritis of knee Unspecified arthropathy, lower leg documented in this encounter Care Teams Delivery Helper Relationship Specialty Start Date End Date Josr Rangel MD PCP - General 04/13/13 11/03/22 documented as of this encounter
--- OUTSIDE RECORDS SUMMARY | 2024-06-18 00:50 | XMS_ITS | Encounter Summary ---
Author Organization [facility] [place] [address] Care Team Providers Care Delivery Agent Name Role Phone Josr Rangel MD Primary Care Provider Unavailab le Encounter Details Date Type Department Care Team (Latest Contact Info) Description 10/29/2016 9:40 AM EDT - 10/29/2016 11:59 PM EDT Hospital Encounter XRay at [address] [place] [address] Davey Gonzalez MD [facility] [place]THOPAEDIC [place] [address] Hx of total knee arthroplasty, bilateral Discharge Disposition: Home Social History Tobacco Use [...] 11:15 AM EST Office Visit Neurosurgery at Adnielle Galvez [address] [place] [phone] Riley Parisi MD [address] [place] [address] Canelo Hodgson PA [address] [place] [address] documented as of this encounter Procedures Procedure Name Priority Date/Time Associated Diagnosis Comments XR KNEE AP AND LAT BILAT Routine 10/29/2016 9:54 AM EDT Hx of total knee arthroplasty, bilateral documented in this encounter Results * XR Knee 1-2 Views Bilat (Generic) (10/29/2016 9:54 AM EDT) Anatomical Region Laterality Modality Knee Bilateral Digital Radiogra phy Impressions 10/29/2016 10:47 AM EDT Status post bilateral total knee arthroplasty without interval change or radiographic evidence of complication. Narrative 10/29/2016 10:47 AM EDT EXAMINATION: XR KNEE 1-2 VIEWS BILAT (GENERIC) CLINICAL HISTORY: BILATERAL TOTAL KNEE ARTHROPLASTY TECHNIQUE: XR KNEE 1-2 VIEWS BILAT (GENERIC) COMPARISON: 08/02/2014. FINDINGS: The patient is status post bilateral total knee arthroplasty. No periprosthetic fracture or osteolysis is seen. No change in appearance from prior study. Procedure Note Vahe De León MD - 10/29/2016 EXAMINATION: XR KNEE 1-2 VIEWS BILAT (GENERIC) CLINICAL HISTORY: BILATERAL TOTAL KNEE ARTHROPLASTY TECHNIQUE: XR KNEE 1-2 VIEWS BILAT (GENERIC) COMPARISON: 08/02/2014. FINDINGS: The patient is status post bilateral total knee arthroplasty.No periprosthetic fracture or osteolysis is seen. No change in appearancefrom prior study. IMPRESSION Status post bilateral total knee arthroplasty without interval change or radiographic evidence of complication. Davey Gonzalez MD IMG DX ORDERABLES documented in this encounter Visit Diagnoses Diagnosis Hx of total knee arthroplasty, bilateral documented in this encounter Care Teams Delivery Agent Relationship Specialty Start Date End Date Josr Rangel MD PCP - General 04/13/13 11/03/22 documented as of this encounter
--- OUTSIDE RECORDS SUMMARY | 2024-06-18 00:50 | XMS_ITS | Encounter Summary ---
[place] [address] Care Team Providers Care Precinct Police Lieutenant Name Role Phone Estephania Langford MD Primary Care Provider [phone] Encounter Details Date Type Department Care Team (Late st Contact Info) Description 11/24/2022 8:00 AM EDT Telephone [place] [address] MarionDestiny PA [facility] DR ORTHOPAEDIC [place] [address] Social History Tobacco Use Types Packs/Day Years [...] encounter Miscellaneous Notes * Telephone Encounter - Destiny Schultz PA - 11/26/2022 11:20 AM EDT Called patient. He reports his knee is doing better. Continue serial monitoring with XR. RTC 1 yearwith B knee XR, sooner if symptoms present. documented in this encounter Plan of Treatment Upcoming Encounters Date Type Department Care Team (Late st Contact Info) Description 06/21/2024 11:15 AM EST Office Visit Neurosurgery at [facility] [address] [place] [address] Riley Parisi MD 10 [facility] [place] [address] Canelo Hodgson PA [address] [facility] [place] [address] documented as of this encounter Visit Diagnoses Not on filedocumented in this encounter Care Teams Precinct Police Lieutenant Relationship Specialty Start Date End Date Estephania Langford MD [address] [place] [address] [place] [address] PCP - General Family Medicine 11/04/22 documented as of this encounter
--- OUTSIDE RECORDS SUMMARY | 2024-06-18 00:50 | XMS_ITS | Encounter Summary ---
Author Organization [facility] Address [address] [place] [address] Care Team Providers Care Teaching Fellow Name Role Phone Unavailable Primary Care Provider Unavailabl e Encounter Details Date Type Department Care Team (Late st Contact Info) Description 05/31/2023 Lab Requisition [facility] Pathology & Laboratory Medicine - [facility] [address] [place] [address] Outr Resulting Lab, Provider Social History Tobacco Use Types Packs/Day Years Used Date Smoking Tobacco: Never Assessed Sex and Gender Information Value Date Recorded Sex Assigned at Not on file Legal Sex Male 12:43 EST Gender Identity Not on file Sexual Orientation Not on file documented as of this encounter Plan of Treatment Not on file documented as of this encounter Procedures Procedure Name Priority Date/Time Associated Diagnosis Comments PSA TOTAL, DIAGNOSTIC Routine 05/31/2023 10:48 EST documented in this encounter Results * PSA TOTAL, DIAGNOSTIC (05/31/2023 10:48 EST) PSA 4.5 <=6.5 ng/mL 05/31/2023 18:48 EST [facility] Blood VENOUS BLOOD / Unknown 05/31/2023 10:48 EST 05/31/2023 17:39 EST Narrative [facility] - 05/31/2023 18:48 EST NOTE: Serum PSA concentration should not be interpreted as absolute evidence for the presence or absence of malignant disease. Assayed on Siemens ADVIA Centaur XPT using chemiluminescent technology.??Values obtained by using different assay methods cannot be used interchangeably. us Provider Outr Resulting Lab CHEMISTRY & BLOOD GA S ORDERABLES Final Result [facility] [address] [place] [address] documented in this encounter Visit Diagnoses Not on filedocumented in this encounter
--- OUTSIDE RECORDS SUMMARY | 2024-06-18 00:50 | XMS_ITS | Encounter Summary ---
[place] [address] Care Team Providers Care Engraver Apprentice Decorative Name Role Phone Josr Rangel MD Primary Care Provider Unavailab le Encounter Details Date Type Department Care Team (Late st Contact Info) Description 05/24/2013 Anti-Coag Telephone [place] [phone] Alyssa Cortés RN Arthritis of knee Social History Tobacco [...] of this encounter Progress Notes * Alyssa Cortés RN - 05/24/2013 2:06 PM EST Anticoagulation Therapy Nurse Visit Josr Bojorquez Sr. 1950 Dr[address] Gonzalez Indication: DVT Prophylaxis S/P Joint Replacement Duration of Treatment: 28 days ends: June 03, 2013 Therapeutic Range: 2.0-3.0 INR: 2.3 Drawn by: [employer] Message left with dosing instructions from 05/24/13 through 05/27/13. documented in this encounter Plan of Treatment Upcoming Encounters Date Type Department Care Team (Late st Contact Info) Description 06/21/2024 11:15 AM EST Office Visit Neurosurgery at [facility] [address] [place] [address] Riley Parisi MD 10 [place] [address] Canelo Hodgson PA [address] [place] [address] documented as of this encounter Procedures Procedure Name Priority Date/Time Associated Diagnosis Comments EXTERNAL LAB RESULTS Routine 05/24/2013 documented in this encounter Results * (ABNORMAL) External Lab Results (05/24/2013) INR, POC 2.3(Machine Wiper al Lab) 0.9 - 1.1 Comment:[facility] 05/24/2013 Historical Provider CHEMISTRY ORDERAB LES documented in this encounter Visit Diagnoses Diagnosis Arthritis of knee Unspecified arthropathy, lower leg documented in this encounter Care Teams Engraver Apprentice Decorative Relationship Specialty Start Date End Date Josr Rangel MD PCP - General 04/13/13 11/03/22 documented as of this encounter
--- OUTSIDE RECORDS SUMMARY | 2024-06-18 00:50 | XMS_ITS | Clinical Summary ---
Author Organization [facility] [place] [address] Care Team Providers Care Carrot Grader Inspector Name Role Phone Estephania Langford MD Primary Care Provider Allergies No known active allergies Medications Medication Sig Dispensed Refills Start Date End Date Status amoxicillin (AMOXIL) 500 mg capsule 2000mg, PO, Pre procedure 05/13/2010 Active aspirin 325 mg Tablet, Delayed Release (E.C.) Take 1 tablet by mouth 2 times daily. 30 tablet 01/14/2016 Active atorvastatin (Lipitor) 20 mg tablet Take 20 mg by mouth daily. Active triamcinolone (Kenalog) 0.1 % Ointment Apply topically 2 times daily. 10/26/2023 Active Active Problems Problem Noted Date Diagnosed Date Lumbar spondylosis 06/14/2024 Lumbar radiculitis 06/14/2024 Sciatica 06/14/2024 Chronic venous insufficiency 01/14/2016 Arthritis of knee 05/11/2013 Urinary retention 05/10/2013 Osteoarthritis of knee s/p TKA Gonzalez 05/07/13 1 07/05/2012 Obesity, unspecified 04/27/2013 Other and unspecified hyperlipidemia 04/27/2013 Asymptomatic varicose veins 04/27/2013 Overview (04/27/2013): Right greater saphenous Phlebitis Stasis ulcer S/P knee replacement 05/10/2012 Overview (05/10/2012): SURGERY DATE: 04/29/2005 Davey Gonzalez M.D. Proposed Procedure: Left total knee arthroplasty. Summary of Components: 1. DePuy PFC Sigma knee system, nonporous cruciate substituting femoral component, size 5, left. 2. DePuy cross link stabilized polyethylene insert, 3 x 10 mm. 3. Modular tibial tray, size 5, DePuy. 4. Oval dome three peg patella, size 38 mm. Encounters Date Type Department Care Team Description 06/16/2024 Travel 06/14/2024 Abstract Neurosurgery at [facility] [address] [place] [address] Josefa Thompson, [facility] 06/08/2024 Transcribe Orders eD Incoming Referrals [phone] Estephania Langford MD Spondylosis without myelopathy or radiculopathy, lumbar region 04/04/2024 Ancillary Procedure Radiology Library at [facility] [place] [address] Estephania Langford MD from Last 3 Months Immunizations Name Administration Dates Next Due Influenza Vaccine, Whole 04/06/2006 Family History Medical History Relation Comments Diabetes Brother Multiple Sclerosis Brother Diabetes Father Asthma Mother Breast Cancer Mother Breast Cancer Sister Diabetes Sister Relation Status Comments Brother Father Mother Sister Social History Tobacco Use Types Packs/Day Years [...] on file Sexual Orientation Not on file Last Filed Vital Signs Vital Sign Reading Time Taken Comments Blood Pressure 125/74 10/29/2016 10:23 AM EDT Pulse 66 10/29/2016 10:23 AM EDT Temperature 36.6 ??C (97.9 ??F) 06/14/2013 10:[address] Respiratory Rate 18 01/14/2016 9:20 AM EDT Oxygen Saturation 98% 05/11/2013 6:25 AM EST Inhaled Oxygen Concentration - - Weight 100.2 kg (221 lb) 11/10/2022 10:03 AM EDT Height 180.3 cm (5' 11) 11/10/2022 10:03 AM EDT Body Mass Index 30.82 11/10/2022 10:03 AM EDT Plan of Treatment Upcoming Encounters Date Type Department Care Team (Late st Contact Info) Description 06/21/2024 11:15 AM EST Office Visit Neurosurgery at [facility] [address] [place] [phone] Riley Parisi MD 10 [facility] [place] [address] Canelo Hodgson PA 10 [facility] [place] [address] Health Maintenance Due Date Last Done Comments CT Colonography 1950 Colonoscopy 1950 Colorectal Cancer Screening 1950 FIT DNA 1950 FIT 1950 Sigmoidoscopy (10 year) with FIT yearly 1950 Sigmoidoscopy 1950 Hepatitis C Screening 1970 Tetanus/Diphtheria/Pertussis Vaccines (1 - Tdap) 1971 Pneumoccocal Vaccine: 50+ (1 of 1 - PCV) 2002 Zoster vaccine (1 of 2) 2002 AAA Screen 2017 Covid-19 Vaccine (1 - 2023-2 5 season) 2024 Influenza (Flu) vaccine (1 o f 1 - Influenza standard series) 01/15/2024 04/06/2006 Diabetes Screening (HgbA1C o r Glucose) Discontinued 05/10/2013, 05/09/2013, 05/08/2013 Medical Devices Implanted Type Area Landing Support Specialist Device Identifier Shelf Expiration Date Model / Serial / Lot Cement,Bne,Cmw 1,Gnta,40gm ([id number]) - [id number] Implanted:Qty: 1 on 05/07/2013 by Davey Gonzalez MD at [facility] IMPLANT[facility] Right: Knee DO NOT USE Depuy Drywall Stripper - 3527 10/15/2015 0 / / [id number] Van,Pfc,Sgm, Ovl,3pg,Std,38 mm ([id number]) ([employer]oreq) - Implanted:Qty: 1 on 05/07/2013 by Davey Gonzalez MD at [facility] Right: Knee DO NOT USE Depuy Drywall Stripper - 3527 12/14/2017 [id number] / / [id number] Tray,Tib,Lcs,M bt,Cmnt,Keel,S z5 ([id number]) ([employer]oreq) - [id number] Implanted:Qty: 1 on 05/07/2013 by Davey Gonzalez MD at [facility] Right: Knee DO NOT USE Depuy Drywall Stripper - 3527 01/14/2018 0 / / [id number] Inser,Pfc,Sgm, Rp,Stab,Sz5,10 mm ([id number]) ([employer]oreq) - [id number] Implanted:Qty: 1 on 05/07/2013 by Davey Gonzalez MD at [facility] Right: Knee DO NOT USE Depuy Drywall Stripper - 3527 12/14/2017 [id number] / / [id number] [place],Sgm,Fem, Ps,Cmnt,Lug,R, 5 ([id number]) ([employer]oreq) - [id number] Implanted:Qty: 1 on 05/07/2013 by Davey Gonzalez MD at [facility] Right: Knee DO NOT USE Depuy Drywall Stripper - 3527 02/13/2023 0 / / [id number] Procedures Procedure Name Priority Date/Time Associated Diagnosis Comments FILM LIBRARY STORAGE ONLY MR SPINE Routine 04/04/2024 12:00 AM EST BASIC METABOLIC PANEL Routine 05/10/2013 3:21 AM EST from Last 3 Months or Most Recently Relevant to Health Maintenance Results * Film Library- Storage Only MR Spine (04/04/2024 12:00 AM EST) Narrative DH RAD - 06/08/2024 9:29 PM EST This exam is auto-finalizing. It's purpose is for storage only. Estephania Langford MD IMG FILM LIBRARY ORD ERABLES [facility] [place] * (ABNORMAL) Basic Metabolic Panel (non-fasting) (05/10/2013 3:21 AM EST) [facility] Glucose 119 60 - 199 mg/dL CERNER MILLENNIUM Comment:Diabetes: >=200 mg/d L plus symptoms Blood Urea Nitrogen 15 10 - 20 mg/dL CERNER MILLENNIUM Creatinine 1.05 0.80 - 1.50 mg/dL CERNER MILLENNIUM Comment: Please note that the pediatric reference intervals supplied above were not validated at [facility]. Results from pediatric patients should be interpreted in conjunction to the patient's age, height and muscle mass. Sodium 134(L) 135 - 145 mmol/L CERNER MILLENNIUM Potassium 4.0 3.5 - 5.0 mmol/L CERNER MILLENNIUM Comment: Please note: ??Patients with WBC >100,000 may have falsely elevated Potassium levels. ??For accurate Potassium quantification in these patients send serum separator tube (gold top) for subsequent determinations. ??Contact the Clinical Chemistry Laboratory if there are any questions. Chloride 98 98 - 107 mmol/L CERNER MILLENNIUM Carbon Dioxide 28 22 - 31 mmol/L CERNER MILLENNIUM Anion Gap 8 5 - 15 mmol/L CERNER MILLENNIUM Calcium 8.8 8.5 - 10.5 mg/dL CERNER MILLENNIUM Est Glomerular Filtration Rate >60 >=60 CERNER MILLENNIUM Comment: This estimated GFR (eGFR) value was calculated using the MDRD equation which has been validated on patients between the ages of 18 and 70. The MDRD should not be used to assess kidney function in patients < 18 years of age or in patients with extremes of body mass, or in patients with acute kidney failure. This value should be multiplied by 1.2 for patients. For further information please copy and paste the following links into your internet browser. http://www.nkdep.nih.gov/lab-evaluation.shtml http://www.kidney.org/professionals/ Blood specimen (specimen) 05/10/2013 3:21 AM EST 05/10/2013 3:35 AM EST Narrative Resulting Agency Comment Spec In Lab Davey Gonzalez MD CHEMISTRY ORDERABLES ROSEMARY MILLENNIUM from Last 3 Months or Most Recently Relevant to Health Maintenance Advance Directives Documents on File Type Date Recorded Patient Sales Program Coordinator Expl anation Advance Directives and Livin g Will 05/03/2013 3:35 PM 05/03/13 * Full Code (Latest Code Status on File) Date Activated Date Inactivated Comments 05/07/2013 5:40 PM 05/11/2013 12:43 PM Question Answer Comments Does patient have decision m aking capacity? Yes, order is based on Patient wishes. Care Teams Carrot Grader Inspector Relationship Specialty Start Date End Date Estephania Langford MD [address] [place], [place] [address] PCP - General Family Medicine 11/04/22
--- OUTSIDE RECORDS SUMMARY | 2024-06-18 00:50 | XMS_ITS | Encounter Summary ---
Author Organization [facility] [place] [address] Care Team Providers Care Hr Intern Name Role Phone Josr Rangel MD Primary Care Provider Unavailab le Reason for Visit * Reason Onset Date Comments Medication Problem 05/23/2013 medicaiton qu estions Encounter Details Date Type Department Care Team (Late st Contact Info) Description 05/23/2013 Ref[place] [address] Davey Gonzalez MD [facility] [place] [address] Social History Tobacco Use Types Packs/Day Years [...] Telephone Encounter - Jennifer March RN - 05/23/2013 10:53 AM EST Josr calls to report that he is experiencing an achy type of pain particularly at bedtime that is not relieved well by dilaudid and acetaminophen. He has resorted to getting up and sleeping in a recliner but wonders if he could use advil or some other type of medication to help relieve this feeling. Discussed difficulty with using advil before the three month catherine with total knee replacement. Discuss trial of benadryl at bedtime to help improve sleep. Josr will give this a try - will call if this does not provide relief. * Telephone Encounter - Louise Grant - 05/23/2013 10:37 AM EST Please call Mr. Bojorquez. He has medication questions. documented in this encounter Plan of Treatment Upcoming Encounters Date Type Department Care Team (Late st Contact Info) Description 06/21/2024 11:15 AM EST Office Visit Neurosurgery at [facility] [address] [place] [address] Riley Parisi MD 10 [facility] [place] [address] Canelo Hodgson PA 10 [facility] [place] [address] documented as of this encounter Visit Diagnoses Not on filedocumented in this encounter Care Teams Hr Intern Relationship Specialty Start Date End Date Josr Rangel MD PCP - General 04/13/13 11/03/22 documented as of this encounter
--- OUTSIDE RECORDS SUMMARY | 2024-06-18 00:50 | XMS_ITS | Clinical Summary ---
Author Organization [facility] Address [address] [place] [address] Care Team Providers Care Firer Locomotive Crane Name Role Phone Unavailable Primary Care Provider Unavailabl e Social History Tobacco Use Types Packs/Day Years Used Date Smoking Tobacco: Never Assessed Sex and Gender Information Value Date Recorded Sex Assigned at Not on file Legal Sex Male 12:43 EST Gender Identity Not on file Sexual Orientation Not on file Plan of Treatment Health Maintenance Due Date Last Done Comments Hepatitis C Screen 1950 Fall Risk Screening 2017 COVID-19 Vaccine (2023- season) 2024 RSV Immunization ( o r 60+ Years) (1 - 1-dose 75+ series) 2027
--- OUTSIDE RECORDS SUMMARY | 2024-06-18 00:50 | XMS_ITS | Encounter Summary ---
Author Organization [facility] [place] [address] Care Team Providers Care Skill Labor Name Role Phone Josr Rangel MD Primary Care Provider Unavailab le Encounter Details Date Type Department Care Team (Latest Contact Info) Description 06/14/2013 9:20 AM EST - 06/14/2013 11:59 PM [facility] Encounter XRay at [address] [place] [place] [address] Arthritis of knee Social History Tobacco Use [...] mg capsule 2000mg, PO, Pre procedure 05/13/2010 OXYCONTIN 10 mg CR tablet 05/08/2013 08/17/2013 aspirin 325 mg EC tablet Take 325 mg by mouth 2 times daily. 01/14/2016 hydroCODone-acetamin ophen 5-325 mg per tablet Take 1-2 tablets by mouth every 6 hours as needed for Pain. 30 tablet 0 05/25/2013 08/17/2013 acetaminophen (TYLENOL) 500 mg tablet Take 2 tablets by mouth every 8 hours. Last day for scheduled dosing = May.17. Then may take every 8 hours as needed. Do not take more than 4,000 mg of acetaminophen in 24 hours. 05/11/2013 08/02/2014 documented as of this encounter Plan of Treatment Upcoming Encounters Date Type Department Care Team (Late st Contact Info) Description 06/21/2024 11:15 AM EST Office Visit Neurosurgery at [facility] [address] [place] [address] Riley Parisi MD [address] [facility] [place] [address] Canelo Hodgson PA [address] [facility] [place] [address] documented as of this encounter Procedures Procedure Name Priority Date/Time Associated Diagnosis Comments XR TKA FIRST PO VISIT ALIGNMENT AP LAT SKYLINE Routine 06/14/2013 10:14 AM EST Arthritis of knee documented in this encounter Results * XR TKA FIRST PO VISIT ALIGNMENT AP LAT SKYLINE (06/14/2013 10:14 AM EST) Anatomical Region Laterality Modality Knee N/A Radiographic Nithya ging 06/14/2013 10:1 4 AM EST Narrative 06/14/2013 2:43 PM EST Examination TKA FIRST PO VISIT STANDING ALIGNMENT AP LAT SKYLINE/RIGHT Clinical History Status Post TKA; to be done at postopertaive follow up Comparison March 2013 multiple examination since 2006. Technique Separate images of the pelvis, knees and feet were acquired in the AP projection with the patient standing. In addition to routine views of the knee, these images were stitched together to form a composite image of the pelvis and legs allowing for evaluation of lower extremity alignment in the weight bearing position. Findings Exam 1 - Standing alignment ?? The bilateral weightbearing axes are slightly medially shifted. Exam 2-standing AP skyline views of both knees and lateral view of the right knee. ?? Findings: The interval placed right total knee arthroplasty appears uncomplicated without radiolucencies or periprosthetic fracture. ??The left total knee arthroplasty has not changed since 2006. Impression Both recently placed right total knee arthroplasty and the longstanding left total knee arthroplasty are ??are uncomplicated without radiolucencies or periprosthetic fracture. Procedure Note Ashley Perry MD - 06/14/2013 Examination TKA FIRST PO VISIT STANDING ALIGNMENT AP LAT SKYLINE/RIGHT Clinical History Status Post TKA; to be done at postopertaive follow up Comparison March 2013 multiple examination since 2006. Technique Separate images of the pelvis, knees and feet were acquired in the AP projection with the patient standing. In addition to routine views of theknee, these images were stitched together to form a composite image of thepelvis and legs allowing for evaluation of lower extremity alignment in the weightbearing position. Findings Exam 1 - Standing alignment The bilateral weightbearing axes are slightly medially shifted. Exam 2-standing AP skyline views of both knees and lateral view of theright knee. Findings: The interval placed right total knee arthroplasty appears uncomplicated without radiolucencies or periprosthetic fracture. The left total knee arthroplasty has not changed since 2006. Impression Both recently placed right total knee arthroplasty and the longstandingleft total knee arthroplasty are are uncomplicated without radiolucencies or periprosthetic fracture. Davey Gonzalez MD IMG DX ORDERABLES documented in this encounter Visit Diagnoses Diagnosis Arthritis of knee Unspecified arthropathy, lower leg documented in this encounter Care Teams Skill Labor Relationship Specialty Start Date End Date Josr Rangel MD PCP - General 04/13/13 11/03/22 documented as of this encounter
--- OUTSIDE RECORDS SUMMARY | 2024-06-18 00:50 | XMS_ITS | Encounter Summary ---
[place] [address] Care Team Providers Care Sushi Chef Name Role Phone Josr Rangel MD Primary Care Provider Unavailab le Reason for Visit * Reason Onset Date Comments Reminder Appointment 05/29/2014 Encounter Details Date Type Department Care Team (Late st Contact Info) Description 05/29/2014 Telephone [place] [address] Davey Gonzalez MD [facility] DR [place] [address] Reminder Appointment Social History Tobacco Use Types Packs/Day Years [...] encounter Miscellaneous Notes * Telephone Encounter - Sylvia Wells - 06/05/2014 5:44 PM EST SCHEDULED * Telephone Encounter - Sonia Natarajan - 05/29/2014 3:53 PM EST Sent [employer] message to schedule reminder appointment with Dr Gonzalez documented in this encounter Plan of Treatment Upcoming Encounters Date Type Department Care Team (Late st Contact Info) Description 06/21/2024 11:15 AM EST Office Visit Neurosurgery at [address] [place] [address] Riley Parisi MD [address] [facility] [place] [address] Canelo Hodgson PA [address] [facility] [place] [address] documented as of this encounter Visit Diagnoses Not on filedocumented in this encounter Care Teams Sushi Chef Relationship Specialty Start Date End Date Josr Rangel MD PCP - General 04/13/13 11/03/22 documented as of this encounter
--- OUTSIDE RECORDS SUMMARY | 2024-06-18 00:51 | XMS_ITS | Encounter Summary ---
Author Organization [place] [address] Care Team Providers Care Motorized Squad Sergeant Name Role Phone Shaheen Rangel MD Primary Care Provider Unavailab le Reason for Visit * Reason Comments Right Knee Pain Encounter Details Date Type Department Care Team (Late st Contact Info) Description 04/13/2013 10:50 AM EST Office [place] [address] Davey Fairchild MD [facility] DR [place] [address] Jw Robles PA Arthritis of knee (Primary Dx) Discharge Disposition: Home Social History [...] Sign Reading Time Taken Comments Blood Pressure 125/73 04/13/2013 12:10 PM EST Pulse 69 04/13/2013 12:10 PM EST Temperature 36.6 ??C (97.9 ??F) 04/13/2013 12:[address] Respiratory Rate - - Oxygen Saturation - - Inhaled Oxygen Concentration - - Weight - - Height - - Body Mass Index - - documented in this encounter Progress Notes * Jw Robles PA - 04/13/2013 12:37 PM EST SURGERY DATE: 04/29/2005 Davey Fairchild M.D. Actual Procedure: Left total knee arthroplasty. Summary of Components: 1. DePuy PFC Sigma knee system, nonporous cruciate substituting femoral component, size 5, left. 2. DePuy cross link stabilized polyethylene insert, 3 x 10 mm. 3. Modular tibial tray, size 5, DePuy. 4. Oval dome three peg patella, size 38 mm. HPI: 62 yo male returns 8 years from his knee replacement. He continues to do very well. He has no pain in the knee. There is no swelling. He does have some crepitice over the past several months without injury. His right knee is increasingly limited due to OA. He is interested in pursuing TKA for the right side if it is indicated. Physical Exam: 62 yo male; ambulatory without assist. Marked varus deformity to the right knee. No effusion to either knee. ROM from 0-125 on both sides. There is pseudolaxity with MCL testing on theright but firm endpoint. No pain or laxity with varus and valgus stress on the left. diffuse varicosities on the right side. X-rays: Unchanged left total knee arthroplasty. A well corticated ossification surrounding the lateral tibial tray is unchanged since 2006. No radiolucencies. The right knee osteoarthropathy has progressed with complete loss of right medial joint space, subchondral sclerosis, cystic change and small osteophytes. Assessment: S/P Left TKA; right knee OA Plan: His TKA looks very good. In regard to his right knee, we discussed indications for TKA. He iscertainly a candidate when he feels it is time. We will begin planning for this. He is comfortable with this approach documented in this encounter Plan of Treatment Upcoming Encounters Date Type Department Care Team (Late st Contact Info) Description 06/21/2024 11:15 AM EST Office Visit Neurosurgery at [facility] [address] [facility] [place] [address] Riley Parisi MD [address] [place] [address] Canelo Hodgson PA [address] [place] [address] documented as of this encounter Procedures Procedure Name Priority Date/Time Associated Diagnosis Comments TOTAL KNEE ARTHROPLASTY Routine 04/13/2013 1:32 P M EST Arthritis of knee documented in this [...] uncomplicated without radiolucencies or periprosthetic fracture. Davey Fairchild MD IMG DX ORDERABLES * Urine culture Clean Catch Urine (05/03/2013 10:38 AM EST) Urine Culture ? Patient Name: CHRIS DUMONT, SHAHEEN Leblanc ? Ordered By: DAVEY FAIRCHILD ? MR#: [id number] ?LOC: ??3D ? /Sex: ?? 2 (63 years), ? Male ? PROCEDURE: Urine Culture ?SOURCE: U CC ? COLLECTED: 05/03/2013 10:38 ? STARTED: 05/03/2013 10:55 ? FINAL REPORT ? Final Report ? Verified: 07:29 ? No growth (Less than 1,000 cfu/ml). ? ____ CERNER MILLENNIUM Urine specimen obtained by clean catch procedure (specimen) 05/03/2013 10:38 AM EST 05/03/2013 10:55 AM EST Narrative Resulting Agency Comment Spec In Lab Davey Fairchild MD MICROBIOLOGY - GENER AL ORDERABLES Performing Organization Address [facility] Co de Phone Number [facility] * Urinalysis with microscopic (05/03/2013 10:38 AM EST) Glucose, Urine Dipstick Negative Negative mg/dL CERNER MILLENNIUM Protein, Urine Dipstick Negative mg/dL CERNER MILLENNIUM Bilirubin, Urine Dipstick Negative Negative mg/dL CERNER MILLENNIUM Comment: Clinical correlation required for positive Urine Bilirubin results as false positive may occur with some drugs and drug related products. If a false positive is suspected a serum total bilirubin should be considered if clinically indicated. Urobilinogen, Urine Dipstick Normal mg/dL CERNER MILLENNIUM pH, Urn (dipstick) 5.5 5.0 - 8.0 CERNER MILLENNIUM Blood, Urine Dipstick Negative mg/dL CERNER MILLENNIUM Ketone, Urine Dipstick Negative mg/dL CERNER MILLENNIUM Nitrite, Urine Dipstick Negative CERNER MILLENNIUM Leukocytes, Urine Dipstick Negative mcL CERNER MILLENNIUM Appearance, Urine Dipstick Clear Clear CERNER MILLENNIUM Specific [place] Urine Automated 1.006 1.002 - 1.030 CERNER MILLENNIUM Color, Urine Dipstick Colorless Yellow CERNER MILLENNIUM RBC, Urine Not Present 0 - 3 CERNER MILLENNIUM WBC, Urine 1 0 - 3 /HPF CERNER MILLENNIUM Urine specimen (specimen) 05/03/2013 10:38 AM EST 05/03/2013 10:45 AM EST Narrative Resulting Agency Comment Spec In Lab Davey Fairchild MD URINE ORDERABLES Performing Organization Address [facility] Co de Phone Number CERNER MILLENNIUM * CBC (with Diff) (05/03/2013 10:19 AM EST) White Blood Cell 9.0 4.0 - 10.0 x10(3)/mcL CERNER MILLENNIUM Red Blood Cell 4.75 4.63 - 6.08 x10(6)/mcL CERNER MILLENNIUM Hemoglobin 14.2 13.7 - 17.5 gm/dL CERNER MILLENNIUM Hematocrit 42.8 40.0 - 51.0 % CERNER MILLENNIUM Mean Cell Volume 90.1 79.0 - 92.0 fL CERNER MILLENNIUM Mean Cell Hemoglobin 29.9 25.6 - 32.2 pg CERNER MILLENNIUM Mean Cell Hemoglobin Concentration 33.2 32.0 - 36.5 gm/dL CERNER MILLENNIUM Platelet 250 145 - 370 x10(3)/mcL CERNER MILLENNIUM RDW Standard Deviation 41.6 35.0 - 46.0 fL CERNER MILLENNIUM RDW coefficient of variation 12.7 10.9 - 14.4 % CERNER MILLENNIUM Mean Platelet Volume 10.1 9.0 - 12.0 fL CERNER MILLENNIUM Blood specimen (specimen) 05/03/2013 10:19 AM EST 05/03/2013 10:44 AM EST Narrative Resulting Agency Comment Spec In Lab Davey Fairchild MD HEMATOLOGY ORDERABLE S Performing Organization Address [facility] Co de Phone Number ROSEMARY GUERRA * EKG 12 Lead (05/03/2013 10:10 AM EST) Ventricular rate 68 BPM MUSE SYSTEM Atrial Rate 68 BPM MUSE SYSTEM P-R Interval 150 ms MUSE SYSTEM QRS Duration 92 ms MUSE SYSTEM Q-T Interval 370 ms MUSE SYSTEM QTC Calculated (Bezet) 393 ms MUSE SYSTEM Calculated P [place] 54 degrees MUSE SYSTEM Calculated R [place] 56 degrees MUSE SYSTEM Calculated T [place] 38 degrees MUSE SYSTEM INTERPRETATION Normal sinus rhythm Normal ECG When compared with ECG of 25-MAR-2005 12:55, No significant change was found Confirmed by MD Ginny, Miky ([id number]) on 05/03/2013 2:55:22 PM MUSE SYSTEM 05/03/2013 10:1 0 AM EST 05/03/2013 2:55 PM EST Davey Fairchild MD ECG ORDERABLES MUSE SYSTEM documented in this encounter Visit Diagnoses Diagnosis Arthritis of knee- Primary Unspecified arthropathy, lower leg Arthritis of knee Unspecified arthropathy, lower leg documented in this encounter Care Teams Motorized Squad Sergeant Relationship Specialty Start Date End Date Shaheen Rangel MD PCP - General 04/13/13 11/03/22 documented as of this encounter
--- OUTSIDE RECORDS SUMMARY | 2024-06-18 00:51 | XMS_ITS | Encounter Summary ---
Author Organization [facility] [place] [address] Care Team Providers Care Local Operator Name Role Phone Estephania Langford MD Primary Care Provider [phone] Encounter Details Date Type Department Care Team (Late st Contact Info) Description 04/29/2005 Orders [place] [address] Davey Gonzalez MD [facility] [place] [address] Social History Tobacco Use Types Packs/Day Years [...] 11:15 AM EST Office Visit Neurosurgery at [facility] [address] [place] [phone] Riley Parisi MD [address] [place] [address] Canelo Hodgson PA [address] [place] [address] [phone] (work) documented as of this encounter Procedures Procedure Name Priority Date/Time Associated Diagnosis Comments SURGICAL PATHOLOGY REPORT Routine 04/29/2005 12:07 PM EST documented in this encounter Results * Surgical Pathology Report (04/29/2005 12:07 PM EST) Pathologist [facility] Surgical Pathology Report [id number] ? Location: [facility]; [facility]; A The signing pathologist has (i) examined the relevant preparation(s) for the specimen(s) and (ii) rendered or confirmed the diagnosis(es). . ?Pathology Surgical Pathology Final Report Clinical Information Specimen Submitted: A - femoral, tibial, patella bone and meniscus left knee Clinical History: DJD left knee Gross Description Labeled/Fixativ e: ? Left knee, femoral, tibia, patella bone and meniscus; ?fresh. Quantity/Size: ?Multiple, 14.5 x 13.0 x 3.5 cm in aggregate. Tissue Description: ?? Fragments of yellow-white, hard, irregular bone, ?cartilage and soft tissue. ??The articular surfaces ?are gonsalez-pink and finely granular. ??Eburnation: ? Present. ??Osteophytes: ?Present. Sections/Proces sing: ??No sections are submitted. ??aje/SNS Diagnosis Articular bone and soft tissue consistent with osteoarthritis, left knee. ?? Gross surgical pathology examination. CR-0 04/30/05 AJE 04/30/05 Verified by: ? Ginger Adkins, DO ?Pathologist ?(Electronic Signature) The attending pathologist whose signature appears on this report has reviewed all diagnostic slides and has edited the gross and/or microscopic portion of the report in rendering the final pathologic diagnosis. ROSEMARY GUERRA 04/29/2005 12:0 7 PM EST Davey Gonzalez MD PATHOLOGY/CYTOLOGY O RDERABLES [facility] documented in this encounter Visit Diagnoses Not on filedocumented in this encounter Care Teams Local Operator Relationship Specialty Start Date End Date Estephania Langford MD [address] [place] [phone] PCP - General Family Medicine 11/04/22 documented as of this encounter
--- OUTSIDE RECORDS SUMMARY | 2024-06-18 00:51 | XMS_ITS | Encounter Summary ---
[place] [address] Care Team Providers Care Planting Supervisor Name Role Phone Josr Rangel MD Primary Care Provider Unavailab le Encounter Details Date Type Department Care Team (Late st Contact Info) Description 04/27/2013 Orders [place] [address] Jennifer March, RN Osteoarthritis of knee (Primary Dx) Social History Tobacco Use Types [...] Visit Neurosurgery at [facility] [address] [place] [phone] Riley Parisi MD [address] [place] [address] Canelo Hodgson PA [address] [place] [address] (work) documented as of this encounter Results * Prothrombin Time (05/03/2013 10:19 AM EST) Prothrombin Time 12.5 12.0 - 15.0 sec CORINNECATRACHO ANGUIANOENNIUM Comment: [facility] Transfusion Committee Guidelines: INR less than 2.0, PTT less than OR equal to 43.5 seconds, or Fibrinogen greater than or equal to 100 mg/dl indicate adequate procoagulant activity for hemostasis in patients without underlying bleeding disorders. International Normalization Ratio 0.9 0.9 - 1.1 [facility] Third Screen [employer] Blood specimen (specimen) 05/03/2013 10:19 AM EST 05/03/2013 10:44 AM EST Narrative Resulting Agency Comment Spec In Lab Davey Gonzalez MD HEMATOLOGY ORDERABLE S [facility] [employer] [facility] documented in this encounter Visit Diagnoses Diagnosis Osteoarthritis of knee- Primary Osteoarthrosis, unspecified whether generalized or localized, lower leg documented in this encounter Care Teams Planting Supervisor Relationship Specialty Start Date End Date Josr Rangel MD PCP - General 04/13/13 11/03/22 documented as of this encounter
--- OUTSIDE RECORDS SUMMARY | 2024-06-18 00:51 | XMS_ITS | Encounter Summary ---
[place] [address] Care Team Providers Care Director Check Name Role Phone Shaheen Taylor MD Primary Care Provider Unavailab le Encounter Details Date Type Department Care Team (Late st Contact Info) Description 05/07/2013 3:54 PM EST - 05/07/2013 6:22 PM EST Surgery [place] [id number] Eyad Gonzalez MD [facility] [place] [address] TOTAL KNEE ARTHROPLASTY (WRVU 19.6) Social History Tobacco Use Types Packs/Day Years [...] Sign Reading Time Taken Comments Blood Pressure 143/72 05/11/2013 6:25 AM EST Pulse 106 05/11/2013 6:25 AM EST Temperature 36.9 ??C (98.4 ??F) 05/11/2013 6:25 AM ES T Respiratory Rate 16 05/11/2013 6:25 AM EST Oxygen Saturation 98% 05/11/2013 6:25 AM EST Inhaled Oxygen Concentration - - Weight 96.6 kg (213 lb) 05/08/2013 10:01 AM EST Height 180.3 cm (5' 11) 05/08/2013 10:01 AM EST Body Mass Index 29.71 05/08/2013 10:01 AM EST documented in this encounter Discharge Instructions * Discharge Instructions* Mally Soares, HYDROMETER FINISHER - 05/11/2013 9:42 AM EST Activity: 1. You can weight bear as tolerated on your Right leg remembering to use a walker or crutches as needed for balance and protection. 2. Flexion AND extension are important to work on at home. You should NOT place a pillow under your right knee. To help with extension you can place a pillow under your heel or lower leg or placed lengthwise along the leg. Again DO NOT place a pillow under the operated knee for comfort. 3. You should wear the AYO hose to knee bilaterally until you are seen in followup. Remove these atleast once per day to inspect your skin. Coumadin flow sheet: Date Notes INR Coumadin dose (mg) 05/07 day of operation - 5 05/08 POD 1 1.0 5 05/09 POD 2 1.2 5 05/10 POD 3 1.2 Lovenox 40 + 7.5 05/11 D/C POD 4 1.2 Lovenox 40 (given) + 7.5 due at 5 pm Anti-coagulation follow up: 1. You should take 7.5 mg (one and one-half of the 5mg pills) of Coumadin today at 5 pm, (). Take this medication at the same time each day - usually 5pm. 2. Your coumadin level or INR target range is 2-3 and this will need to be checked by the Visiting Nurse on the day after discharge and at least twice per week thereafter (usually every Tuesday and ). The INR should be reported to the [facility] Ortho clinic at [phone], and you will be informed of any needed changes in your Coumadin dose. 3. If your INR level is ever above 3.5 you should not participate in aggressive Physical therapy exercises - you can mobilize/ambulate. This will decrease the possibility of more bleeding into your joint. Once your INR is less than 3.5 you can resume Physical therapy. One of the Orthopedic nurses will call you with further instructions as needed. 4. You will be on Coumadin for 4 weeks. After your dose on , STOP the Coumadin. On , begin enteric-coated Aspirin 325mg twice a day until you are seen in followup with your orthopedic surgeon. Lovenox injections: Your INR level did not increase as much as expected after surgery so you have been discharged on Lovenox AND coumadin. You will be on the Lovenox injections (40mg daily) until your INR level is greater than 1.4. Once that happens, stop the Lovenox and continue just the coumadin as instructed above. Diet: Resume usual diet, but increase your intake of fluids and fiber while you are on narcotic pain meds to prevent constipation Driving: No, not until you are cleared to do so by your Orthopedic surgeon. Ideally you should not drive if you are on narcotic pain meds as these can affect your judgement and reaction time. Call your surgeon with any questions. Medication: 1. The pain medication that you are using can cause constipation, so make sure you increase your intake of fluids and fiber while you are on them. You should also take the stool softener that was ordered, sennakot, to factilitate a bowel movement. An plmt-llb-calulaw medication, miralax can also beused if needed to combat constipation 2. If you need a renewal on your narcotic pain medication, you need to give the Orthopedic clinic enough time to process your request. This can take up to three days, so plan accordingly. 3. You have been discharged on a long acting (Oxycontin) and short acting narcotic, (Dilaudid). Youwill be on these medications for a limited period of time only. Taper off the Oxycontin as indicated on your prescription (Take 10 mg every 12 hours for 5 days. Then take 10 mg daily for 5 days. Thenstop). 4. Continue the Tylenol around the clock for the next 10 days, (May.17). This can be effective incontrolling pain along with your other medications. Shower: 1. You can shower but remember your activity limitations and always have a chair available for balance and protection. DO NOT submerge the dressing/incision. 2. (Mepilex) Do not let water run over the operative dressing. If it becomes wet lightly pat the dressing dry. DO NOT submerge the incision. 3. You have aminah/sutures. Always cover them with a waterproof dressing or plastic bag when showering until they are removed. 4. After aminah/sutures are removed you can let water run gently over the incision. Wound (Mepilex): 1. Sutures/aminah: Staple/suture removal 11-14 days after surgery (approximately 05/21/12). 2. Remove your operative dressing 7 days from your surgery (05/14/13). When it is removed you can leave the incision open to air or cover it with a light dressing. 3. If you have lots of drainage when you get home (and it is before 05/14/13), remove this operative dressing and replace it with dry sterile gauze. Continue with daily dressing changes (and as needed) until the drainage stops, then remove the dressing and leave the incision open to air or lightly covered. FOLLOWUP APPOINTMENTS: 1. You will have followup appointments at [facility] as indicated in Future Appointments and Orders. You will have an xray prior to those appointments so please come to Radiology, desk 3T, 1 hour BEFORE your appointment for those x-rays. 2. You have a follow-up appointment with your Primary Care Provider, Dr. Taylor ([phone]), on May 15 at 10:40 am. This appointment is for evaluation/monitoring of your urinary output. You have enough Flomax to last until this appointment. Ask Dr. Taylor, if you should continue with this prescription. documented in this encounter Medications at Time of Discharge Medication Sig Dispensed Refills Start Date End Date amoxicillin (AMOXIL) 500 mg capsule 2000mg, PO, Pre procedure 05/13/2010 hydromorphone (DILAUDID) 2 mg tablet 05/08/2013 06/14/2013 OXYCONTIN 10 mg CR tablet 05/08/2013 08/17/2013 warfarin (COUMADIN) 5 mg tablet Take 1.5 tablets by mouth once for 1 dose. Your dose may vary depending on the INR value. You may need to break or combine pills to achieve the right dose. 05/11/2013 05/11/2013 acetaminophen (TYLENOL) 500 mg tablet Take 2 tablets by mouth every 8 hours. Last day for scheduled dosing = May.17. Then may take every 8 hours as needed. Do not take more than 4,000 mg of acetaminophen in 24 hours. 05/11/2013 08/02/2014 OXYcodone (OXYCONTIN) 10 mg CR tablet Take 1 tablet by mouth 2 times daily. Take one tablet every 12 hours for 5 days. Then take one tablet daily for 5 days. Then stop. 05/11/2013 05/25/2013 senna-docusate (PERICOLACE) 8.6-50 mg per tablet Take 1-4 tablets by mouth 2 times daily. 60 tablet 0 05/11/2013 06/14/2013 sodium phosphates (FLEET) enema Place 1 Bottle rectally once as needed for Constipation (take at home as needed for constipation). 05/11/2013 06/14/2013 tamsulosin (FLOMAX) 0.4 mg capsule Take 1 capsule by mouth daily. 5 tablet 0 05/11/2013 06/14/2013 polyethylene glycol (MIRALAX) 17 gram packet Take 17 g by mouth 2 times daily. 05/11/2013 06/14/2013 bisacodyl (DULCOLAX) [address] 1 suppository rectally daily as needed (Take daily as needed at home for constipation). 05/11/2013 06/14/2013 enoxaparin (LOVENOX) 40 mg/0.4 mL Syrg injection Inject 0.4 mLs subcutaneously daily as needed. Take daily as needed for INR less than 1.4. Once INR is 1.4 or above, stop the Lovenox. Your blood will be drawn on Tuesday, and you will be notified if you need to give yourself this injection. 2 Syringe 2 05/12/2013 06/14/2013 HYDROmorphone (DILAUDID) 2 mg tablet Take 1-3 tablets by mouth every 3 hours as needed for Pain. 90 tablet 0 05/08/2013 05/25/2013 documented as of this encounter Progress Notes * Kristi Reina RN - 05/11/2013 10:21 AM EST Patient's IV removed. Site benign. Patient received discharge summary and verbally understands instructions. Patient has prescriptions. Patient left via family member. There are no further questions.Discharge instructions faxed to [facility]. KRISTI REINA RN * Arsen Marroquin III, MD - 05/11/2013 6:40 AM EST Orthopaedic Surgery Progress Note: ID: Shaheen Bojorquez Sr. is a 63 y.o. male s/p right TKA on 05/07/13. Subjective and 24 Hour Events: Bates removed, pt voiding Cleared PT, pain controlled, no nausea Last value Range last 24 hrs Temperature Temp: 36.9 ??C (98.4 ??F) Temp: [36.3 ??C (97.3 ??F)-37.4 ??C (99.3 ??F)] Heart Rate Heart Rate: 106 Heart Rate: [86-106] Blood Pressure BP: 143/72 mmHg BP: (121-147)/(66-73) Respiratory Rate Resp: 16 Resp: [16-18] SpO2 SpO2: 98 % Oxygen Delivery Intake/Output Summary (Last 24 hours) at 05/11/13 0640 Last data filed at 05/11/13 0625 Gross per 24 hour Intake 2650 ml Output 3905 ml Net -1255 ml Well appearing, alert and oriented, appropriate Breathing comfortably RLE: Compartments soft, dressing c/d/i. 2+ DP pulse Sensation: superficial peroneal intact, deep peroneal intact and tibial intact Motor intact TA/GSC/EHL Recent Labs Basename 05/11/1332205/10/1332005/09/13 0332 WBC -- 12.0* 14.5* HGB -- 10.9* 11.6* HCT -- 32.8* 34.6* PLATELET -- 162 170 PT 15.6* 15.6* 15.9* INR 1.2* 1.2* 1.2* PTT -- -- -- Recent Labs Basename 05/10/13 03205/09/13 0332 NA 134* 135 K 4.0 4.0 CL 98 100 CO2 28 25 BUN 15 14 CREATININE 1.05 0.97 GLUCOSE 119 134 CALCIUM 8.8 8.5 MAGNESIUM -- -- PHOS -- -- A/P: Shaheen Bojorquez Sr. is a 63 y.o. male s/p Right TKA on 05/07. Cleared PT, Pt voiding and will be discharged this am. Plan: Weightbearing: WBAT Anticoagulation:Coumadin with lovneox until INR 1.4 Diet:regular diet Wound/Misc: mepilex x7 days Bates: remove this am Drains: out ABX: x24h complete PT/OT: consults appreciated Dispo: home vs. Rehab per PT Follow-up: Future Appointments Date Time Provider Department Center 06/14/2013 9:40 AM Eyad Gonzalez MD [facility] 3[facility] None * Eddie Grimes RN - 05/10/2013 5:30 PM EST Assumed care [phone]. Patient A&O x 3, lungs clear, heart rate regular. Patient has active bowel sounds and stated he is passing flatus. Patient has a dressing to right knee, noted to be clean dry and intact. Patient states their pain level is 2/10. Patient denies chest pain, shortness of breath, numbness or tingeling. Monitoring PVRs as documented in doc flowsheets. Patient ambulating independently to bathroom using walker, steady gait. RN will monitor patient. * Zoe Pedroza, PT - 05/10/2013 9:32 AM EST PHYSICAL THERAPY Follow - Up Visit #3 Patient is a [address] Gonzalez, admitted on 05/07/2013 with OA resulting in pain and impaired function. R TKA was performed on day of admission. Referred to PT per pathway. Precautions: WBAT R leg. Objective: Pt was seen today for gait, mobility and ambulation. His spouse was present during the treatment. Subjective: I got 90 degrees yesterday. Behavior/Mental Status: Pt was awake and motivated to work, appropriate. Pain/Tenderness: 2/10 at max knee flexion in sitting Range of Motion: R Knee Flexion: 90' Strength: min quad lag as expected post op with LAQ. Exercises: Seated therex: (2 x 10 each) AP, LAQ, Hip Abd/Add, Knee Flexion Mobility: Ind with bed mobility with out leg press loader Sit to stand with min assist for crutch management or independent with walker. Gait: Amb 150 feet with walker independently. Good knee ROM during gait, but needs cues to increasewb through left leg. He was able to walk 100' with crutches, but with less steadiness. He was instructed to use the walker at home and progress to crutches with [facility] PT. Stairs: pt was able to go up and down 4 steps with 1 rail and 1 crutch independently after initial instruction. Assessment: Pt is mobilizing independently today. His knee ROM is excellent. He has met all inpt PTgoals for d/c to home. His was present for the end of the session and agrees. Pt/family in agreement. Treatment Plan: D/c inpt PT Total Treatment Time: 25 minutes Total timed treatment: 25 minutes ( functional) Zoe Pedroza, PT Pager [phone] Inpatient Physical Therapy * Denise Noriega - 05/10/2013 8:33 AM EST I checked in with his insurance provider r/t [employer]. He can use [employer] and has no deductible, however, he will have a 12$ copay. Ref# [id number] * Eyad Gonzalez MD - 05/10/2013 6:18 AM EST Orthopaedic Surgery Progress Note: ID: Shaheen Bojorquez is a 63 y.o. male s/p right TKA on 05/07/13. Subjective and 24 Hour Events: -feels much better today today after scopolamine patch. Pain controlled, bates still in place. Last value Range last 24 hrs Temperature Temp: 36.7 ??C (98.1 ??F) Temp: [36.5 ??C (97.7 ??F)-37.2 ??C (99 ??F)] Heart Rate Heart Rate: 98 Heart Rate: [84-105] Blood Pressure BP: 144/79 mmHg BP: (120-144)/(63-79) Respiratory Rate Resp: 17 Resp: [17-18] SpO2 SpO2: 98 % Oxygen Delivery Intake/Output Summary (Last 24 hours) at 05/10/13 0618 Last data filed at 05/10/13 0500 Gross per 24 hour Intake 2290 ml Output 3350 ml Net -1060 ml Well appearing, alert and oriented, appropriate Breathing comfortably RLE: Compartments soft, dressing c/d/i. 2+ DP pulse Sensation: superficial peroneal intact, deep peroneal intact and tibial intact Motor intact TA/GSC/EHL Recent Labs Basename 05/10/13 0321 05/09/13 0332 05/08/13 0327 WBC 12.0* 14.5* 14.8* HGB 10.9* 11.6* 12.8* HCT 32.8* 34.6* 38.4* PLATELET 162 170 208 PT 15.6* 15.9* 13.8 INR 1.2* 1.2* 1.0 PTT -- -- -- Recent Labs Basename 05/10/13 0321 05/09/13 0332 05/08/13 0327 NA 134* 135 137 K 4.0 4.0 4.1 CL 98 100 102 CO2 28 25 25 BUN 15 14 16 CREATININE 1.05 0.97 1.02 GLUCOSE 119 134 151 CALCIUM 8.8 8.5 8.8 MAGNESIUM -- -- -- PHOS -- -- -- A/P: Shaheen Bojorquez Sr. is a 63 y.o. male s/p Right TKA on 05/07. Feeling much better today. We will remove bates and mobilize. Likely home today. Plan: Weightbearing: WBAT Anticoagulation:Coumadin with dose of lovneox today Diet:regular diet Wound/Misc: mepilex x7 days Bates: remove this am Drains: out ABX: x24h complete PT/OT: consults appreciated Dispo: home vs. Rehab per PT I saw and evaluated the patient. I was integral in formulating the plan as outlined. EYAD GONZALEZ MD Follow-up: Future Appointments Date Time Provider Department Center 06/14/2013 9:40 AM Eyad Gonzalez MD [facility] None * Amarjit Bar - 05/09/2013 3:39 PM EST [employer] Encounter Note Patient Name: Shaheen Bojorquez Sr. : [id number] MR#: [id number] Admit Date: 05/07/2013 1:44 PM Hospital Day 2 days Narrative:Visited to introduce and assess acceptance of [employer] services. Pt was awake, alert, oriented and in chair and family was there. Assessment:Family coping positively with stresses of illness/hospitalization at this time. Pt says that he is feeling better and pt family asked for prayers and blessings. Intervention and Outcome:pt has family family care and support. Pt has purpose of life and wants tolive with family. [employer]er Manufacturer services accepted. Conversation to build trusting relationship. Provided prayer. Provided pastoral presence. Provided spiritual guidance. Provided supportive counseling. Provided orthodoxy/sacramental rite. Follow-up: Follow-up visit for continued assessment and support. Time in Direct Care:15 Mins Amarjit Bar 05/09/2013 * Cecelia Robertson, PT - 05/09/2013 12:41 PM EST PHYSICAL THERAPY Follow - Up Visit #2 Patient is a [address] Gonzalez, admitted on 05/07/2013 with OA resulting in pain and impaired function. R TKA was performed on day of admission. Referred to PT per pathway. No past medical history on file. Past Surgical History Procedure Date ??? Created by interface ARTHROSCOPY KNEE,MENISCECTOMY SINGLE WITH SHAVING / LEFT/MEDIAL MENISCUS/MENISCECTOMY Procedure Date: 09/24/2004 ??? Created by interface TOTAL KNEE ARTHROPLASTY / LEFT/STAB.ROTATING PLATFORM/ANTIBIOTIC CEMENT Procedure Date: 04/29/2005 Premorbid environment/level of function/service at home: Pt lives in 1 story home with 3 steps to enter the home. Pt was ambulatory prior to surgery, without AD. He has support of and family at home. Precautions: WBAT R leg. Objective: Pt was seen today for gait, mobility and ambulation. His spouse was present during the treatment. Subjective: Overall not too badly. But my stomach still isn't right and I've barely walked so I'm interested to see how that goes Behavior/Mental Status: Pt was oriented, but somewhat sleepy due to current medications Pain/Tenderness: 5/10 at max knee flexion in sitting Range of Motion: R Knee Flexion: 90' Strength: Fair LAQ Exercises: Seated therex: (2 x 10 each) AP, LAQ, Hip Abd/Add, Knee Flexion Mobility: Supine to sit: nt Sit to supine: Pt required min assist x 1 to transfer pt leg into bed (will trial Leg press loader at next rx) Sit to stand: Pt transferred to FWW with CGand verbal cues. Stand to sit: Pt transferred from FWW with CG. Gait: Amb 15' with RW, CGA - Min a, distance limited by nausea/vomitting. Pt returned to supine after emesis of 2 small (<quarter size) secretions. RN aware. Assessment: Pt is POD #2 s/p L TKA functional mobility is limited by ongoing nausea. Overall pt mobilizes well, anticipate will be appropriate for d/c to home with Home PT when medically ready/GI/ issues resolved. Pt/family in agreement. Short Term Goals: (to be acheived by 05/10/2013) 1. Independent with home exercise program 2. Ind to supervised with bed mobility 3. Ind to supervised with sit to stand using a device 4. ROM of operated knee from 5 to 80-90 degrees to allow for optimal functional mobility. 5. Ind ambulation at least 150' with device WBAT, R LE. 6. Up and down 3 stairs with crutch and rail. Treatment Plan: Frequency/Rx to Include: daily until d/c per pathway for TKA ex's, mobility, gait and pt education/d/c planning. Discharge Plan as discussed with pt at this time: Home with [facility] Patient/Caregiver Agrees with Goals/Rx Plan. Total Treatment Time: 28 minutes Total timed treatment: 28 minutes ( ta x 2) Cecelia Robertson PT, MSPT Pager [phone] Inpatient Physical Therapy * Ralph Saunders MD - 05/09/2013 6:31 AM EST Regional Anesthesia Progress Note Date of Encounter: 05/09/2013 Provider: RALPH SAUNDERS MD Attending: Paul Dickens MD ID: Patient is POD# 2 s/p R TKA for which the patient received right femoral nerve block for post-operative pain control. Subjective: Today the patient has excellent pain control and at present states pain is 3 out of 10. Objective: Please see VS flowsheet Appears comfortable Sensory Exam: normal Motor Exam: 75% strength in right leg raise compared to left, able to extend knee Block insertion site free of bruising, hematoma, or erythema Assessment: Peripheral nerve block for post-operative pain control, currently with excellent pain control. Block appears to be appropriately resolving. Plan and/or Recommendations: ?? Continue current pain regimen as ordered Will sign off; please contact Regional Anesthesia Team ([phone]) for any unresolved sensory or motor deficits or bleeding or bruising at site of block. Thank you for this consultation. RALPH SAUNDERS MD Regional team pager [phone] * Jerman Chinchilla - 05/09/2013 6:26 AM EST Orthopaedic Surgery Progress Note: ID: Shaheen Bojorquez Sr. is a 63 y.o. male s/p right TKA on 05/07/13. Subjective and 24 Hour Events: -nausea improved overnight. Feels more nauseous when up walking around compared to lying down. Last value Range last 24 hrs Temperature Temp: 37.3 ??C (99.1 ??F) Temp: [36.7 ??C (98.1 ??F)-37.5 ??C (99.5 ??F)] Heart Rate Heart Rate: 91 Heart Rate: [89-111] Blood Pressure BP: 123/61 mmHg BP: (107-137)/(52-66) Respiratory Rate Resp: 20 Resp: [18-20] SpO2 SpO2: 94 % Oxygen Delivery Intake/Output Summary (Last 24 hours) at 05/09/13 0626 Last data filed at 05/09/13 0616 Gross per 24 hour Intake 2593 ml Output 3425 ml Net -832 ml Well appearing, alert and oriented, appropriate Breathing comfortably RLE: Compartments soft, dressing c/d/i. Abdoul wrap taken down on AM rounds 2+ DP pulse Sensation: superficial peroneal intact, deep peroneal intact and tibial intact Motor intact TA/GSC/EHL Recent Labs Basename 05/09/13 0332 05/08/13 0327 WBC 14.5* 14.8* HGB 11.6* 12.8* HCT 34.6* 38.4* PLATELET 170 208 PT 15.9* 13.8 INR 1.2* 1.0 PTT -- -- Recent Labs Basename 05/09/13 0332 05/08/13 032 NA 135 137 K 4.0 4.1 CL 100 102 CO2 25 25 BUN 14 16 CREATININE 0.97 1.02 GLUCOSE 134 151 CALCIUM 8.5 8.8 MAGNESIUM -- -- PHOS -- -- A/P: Shaheen Bojorquez Sr. is a 63 y.o. male s/p Right TKA on 05/07. Generally doing well. Nausea issues seem to be resolving this AM, pain has been under control overnight. Bates was reinserted last night secondary to urinary retention and need for straight cath x 2, will watch UOP today and d/c bates tomorrow AM Plan: Weightbearing: WBAT Anticoagulation:Coumadin Diet:regular diet Wound/Misc: mepilex x7 days Bates: reinserted this AM, will d/c in AM Drains: DCd today, tip intact ABX: x24h PT/OT: consults appreciated Dispo: home vs. Rehab per PT Follow-up: Future Appointments Date Time Provider Department Center 06/14/2013 9:40 AM Eyad Gonzalez MD [facility] 3[facility] None * Nini Alex RN - 05/08/2013 11:45 PM EST Pt voided 175 ml, PVR 933 ml. Pt has been straight cathed twice earlier in the day. paged and ordered to replace bates. Bates inserted with return of 825 ml of yellow urine. Kojo Lou - 05/08/2013 11:28 AM EST Regional Anesthesia Progress Note Date of Encounter: 05/08/2013 Provider: KOJO HERR MD Attending: Aryan Quick MD ID: Patient is POD# 1 s/p R TKA for which the patient received right femoral nerve block for post-operative pain control. Subjective: Today the patient has good pain control and at present states pain is 4 out of 10. Objective: Please see VS flowsheet Appears comfortable Sensory Exam: numbness on medial thigh and anterior knee. Motor Exam: unable to perform straight leg raise or knee extension Block insertion site free of bruising, hematoma, or erythema Assessment: Peripheral nerve block for post-operative pain control, currently with good pain control. Block appears to be appropriately resolving. Plan and/or Recommendations: ?? Continue current pain regimen as ordered Will continue to follow; please contact Regional Anesthesia Team ([phone]) for any unresolved sensory or motor deficits or bleeding or bruising at site of block. Thank you for this consultation. KOJO HERR MD Regional team pager [phone] LEY * Pedro Santos RN - 05/08/2013 11:13 AM EST S: I have another knee that Dr Gonzalez did 8 yrs ago. O: Chart reviewed and met with pt and family. Pt is lying in bed in [facility]. Pt had R TKA yesterday by Dr Gonzalez. 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 Pt denies the need for in-pt rehab and feels he can manage at home with [facility]. Pt requests [facility] for services.Pt will need PT/INR q M&TH, SR in 10-14 days, and Home PT 3xwk within 24 hrs of d/c including we ekends. Pt has the DME she needs. A: Progressing toward d/c to home with [facility] and family assist. P: Will follow, anticipate d/c in am. * Eyad Gonzalez MD - 05/08/2013 5:33 AM EST Orthopaedic Surgery Progress Note: ID: Shaheen Bojorquez Sr. is a 63 y.o. male s/p right TKA on 05/07/13. Subjective and 24 Hour Events: -pain control and issue overnight, improved this AM, some nausea last night as well, also improving Last value Range last 24 hrs Temperature Temp: 37.5 ??C (99.5 ??F) Temp: [36.2 ??C (97.2 ??F)-37.5 ??C (99.5 ??F)] Heart Rate Heart Rate: 100 Heart Rate: [60-100] Blood Pressure BP: 124/67 mmHg BP: (100-136)/(54-83) Respiratory Rate Resp: 18 Resp: [12-18] SpO2 SpO2: 93 % Oxygen Delivery Intake/Output Summary (Last 24 hours) at 05/08/13 0533 Last data filed at 05/08/13 0232 Gross per 24 hour Intake 2805 ml Output 2630 ml Net 175 ml Well appearing, alert and oriented, appropriate Breathing comfortably RLE: Compartments soft, dressing c/d/i 2+ DP pulse Sensation: superficial peroneal intact, deep peroneal intact and tibial intact Motor intact TA/GSC/EHL Recent Labs Basename 05/08/13 0327 WBC 14.8* HGB 12.8* HCT 38.4* PLATELET 208 PT 13.8 INR 1.0 PTT -- Recent Labs Basename 05/08/13 0327 NA 137 K 4.1 CL 102 CO2 25 BUN 16 CREATININE 1.02 GLUCOSE 151 CALCIUM 8.8 MAGNESIUM -- PHOS -- A/P: Shaheen Bojorquez Sr. is a 63 y.o. male s/p Right TKA on 05/07. Generally doing well. Had some nausea and pain last night, seems to be improving this AM. Will transition to oxycontin + po dilaudid this AM. IRENE Bates. Mobilize today. Plan: Weightbearing: WBAT Anticoagulation:Coumadin Diet:regular diet Wound/Misc: mepilex x7 days Bates: DC today Drains: DCd today, tip intact ABX: x24h PT/OT: consults appreciated Dispo: home vs. Rehab per PT I saw and evaluated the patient. I was integral in formulating the plan as outlined. Work on nauseaand pain. EYAD GONZALEZ MD Follow-up: Future Appointments Date Time Provider Department Center 06/14/2013 9:40 AM Eyad Gonzalez MD [facility] 3D None * Daryl Ely MD - 05/07/2013 9:30 PM EST Orthopaedic Surgery Post-Op Check Note Surgery: Right TKA Patient Active Problem List Diagnosis Code ??? S/P knee replacement V43.65 ??? Obesity, unspecified 278.00 ??? Other and unspecified hyperlipidemia 272.4 ??? Asymptomatic varicose veins 454.9 ??? Osteoarthritis of knee s/p TKA Carlos 05/07/13 715.96 Patient seen: Floor at approximately 21h00 S/Events: Denies CP, SOB, nausea, vomiting, abd pain. Pain well controlled. Patient has received right femoral nerve block, single shot. O: Vitals: Temp: [36.2 ??C (97.2 ??F)-36.8 ??C (98.2 ??F)] Heart Rate: [60-94] Resp: [12-16] BP: (100-136)/(54-83) SpO2: [96 %-100 %] I/O last 3 completed shifts: In: 2325 [I.V.:2325] Out: 1630 [Urine:1150; Other:180; Blood:300] Exam: General: NAD, awake/alert Resp: Breathing comfortably Abd: S/NT/ND RLE: Dressing c/d/i. In cryocuff. Drain in place and draining serosagnuinous fluid. Motor intact toEHL, FHL, TA. Sensation intact in foot/calf, although reports some paresthesias diffusely in the dorsal and plantar surfaces of the foot. Brisk capillary refill distally. Labs: No results found for this basename: WBC:3,HGB:3,HCT:3,PLATELET:3,NA:3,K:3,CL:3,CO2:3,BUN:3,CREATININE:3 in the last 72 hours A/P: 63 y.o. year old male POD#0 s/p right TKA, progressing well with stable vitals and uop. - Orders reviewed - continue all post-operative care - WBAT - Coumadin for DVT prophylaxis * Meche Dickens RN - 05/07/2013 6:15 PM EST 1730 - admitted post procedure. Monitors attached and alarms set according to pt's age and condition Awake talking. Denies pain. 1814 - able to grossly move BL. No sensation. documented in this encounter H&P Notes * Eyad Gonzalez MD - 05/07/2013 3:19 PM EST The patient's history and physical exam have been reviewed and completed. There has been no interval change from that of the pre-operative history and physical exam done within the last 30 days. * Eyad Gonzalez MD - 05/07/2013 3:19 PM EST Patient Name: Shaheen Bojorquez Sr. Patient Age: 63 y.o. Birthdate: 1950 Admit date: 05/07/2013 Attending Physician: Eyda Gonzalez MD See scanned document for pre-procedural H&P. documented in this encounter Procedure Notes * Josh Morocho - 05/12/2013 10:01 AM ESTAssociated Order(s): SCAN DOC: IMPLANTABLE DEVICES * Provider, Scanning - 05/12/2013 10:01 AM ESTAssociated Order(s): SCAN DOC: LAB documented in this encounter Miscellaneous Notes * Miscellaneous - Provider, Scanning - 05/12/2013 10:01 AM EST * Miscellaneous - Provider, Scanning - 05/12/2013 10:01 AM EST * Initial Assessments - Isabella Bermeo OT - 05/10/2013 3:07 PM EST Occupational Therapy Evaluation Patient profile: Shaheen Bojorquez Sr. is a 63 y.o. male patient of Eyad Busch MD, admitted on 05/07/2013 sp L TKA. No past medical history on file. Past Surgical History Procedure Date ??? Created by interface ARTHROSCOPY KNEE,MENISCECTOMY SINGLE WITH SHAVING / LEFT/MEDIAL MENISCUS/MENISCECTOMY Procedure Date: 09/24/2004 ??? Created by interface TOTAL KNEE ARTHROPLASTY / LEFT/STAB.ROTATING PLATFORM/ANTIBIOTIC CEMENT Procedure Date: 04/29/2005 ??? Total knee arthroplasty 05/07/2013 @TOTAL KNEE ARTHROPLASTY performed by Eyad Gonzalez MD at [facility] MAIN OR Social History: Pt lives in 1 story home with 3 steps to enter the home. Pt was ambulatory prior to surgery, without AD. He has support of and family at home. Baseline ADL/Mobility: Independent with ADL???s and IADL???s Precautions/Special Considerations: WBAT, Subjective: I have been getting up to the bathroom and getting dressed by myself Objective: Seen today for OT evaluation. Pt's was at bedside Cognitive Status/Behavior: alert, oriented to person, place, and time Vision & Perception: Not assessed, WFL? s Range of motion, strength, coordination: Bilateral UEs are within functional limitations Sensation: not formally assessed Activities of Daily Living: Self-feeding: N/A-Independent with set up Hygiene grooming: indep Upper and lower body dressing and bathing: ?? supervision Toileting: Toilet Transfer: supervison Toilet Hygiene: indep Functional Mobility: see P.T.'s notes Balance: good. IADL???s: Assistance available to patient. Endurance: Information taken from last recorded vitals in flowsheet. Last value Range last 8 hrs Heart Rate Heart Rate: 103 Heart Rate: [86-103] Blood Pressure BP: 129/73 mmHg BP: (121-129)/(72-73) SpO2 SpO2: 96 % SpO2: [96 %] Pain: Mild discomfort. Skin: No problems noted Informed Consent: The patient agrees to and understands the OT treatment plan and goals. Education: patient and significant other have been educated on Role of occupational therapy/rehabilitation, ADL, Safety, Functional Mobility and Home Management and verbalizes understanding. Patient status, treatment, and mobility recommendations discussed with nursing. Assessment: Pt has been seen by OT for evaluation, and he demonstrates the ability to perform basic ADL???s modified independence. Anticipate that pt will return home with assistance. Do not anticipate further OT needs. Recommendations: Equipment needs at discharge: Patient has all necessary equipment Discharge Recommendations: home with family assist and VNA Goals: MET 1. Pt will demonstrate independent with precautions/restrictions during ADLs. 2. Pt will perform standing ADLs with supervision only. 3. Pt will dress self independently using adaptive technique/equipment as needed. 4. Pt will ambulate independently with assistive device as needed for ADLs. 5. Pt will demonstrate shower transfers with supervision and safe technique. Plan: Discharge from skilled OT Eval Date: 05/10/2013 Total time spent with patient: 10 minutes Total timed interventions: 0 minutes Pager: [phone] ISABELLA BERMEO OT 05/10/2013 Occupational Therapy Rehabilitation Department * Plan of Care - Shira Hess RN - 05/10/2013 11:52 AM EST Problem: Pain, Acute (Adult, Obstetric) Intervention: Acute Pain: Signs and Symptoms Patient tolerating Dilaudid 4mg q4 PRN. Patient states pain is 1/10. Patient aware to alert RN if pain is not being controlled with current pain medication. RN will monitor patient. * Plan of Care - Beth Buenrostro RN - 05/09/2013 10:01 PM EST Problem: Knee Replacement, Total (Adult) Intervention: Bowel Function Promotion Scheduled bowel medications were give to assist the patient with bowel regimen. The patient was encouraged to drink fluids and increase activity as tolerated. * Plan of Care - Zoe Galeas RN - 05/09/2013 5:32 PM EST Problem: Pain, Acute (Adult, Obstetric) Goal: Acute Pain: Acceptable Pain Control/Comfort Level - Pain, Acute (Adult, Obstetric) Pt reporting minimal pain this shift. Medicating w/ PO dilaudid 6 mg Q3 w/ good relief; however, ptreports feeling extra sleepy with narcotic so requests to try smaller dose/less frequency next timeto see if pain will still be controlled w/ less sleepiness.Cryocuff on intermittently. Pt knows to tell RN if his pain increases or becomes intolerable. Will continue to monitor. Problem: Skin Integrity Impairment, Risk/Actual (Adult, Obstetric) Goal: Skin Integrity Impairment, Risk/Actual: Skin Integrity/Wound Healing Pt's skin intact this shift. R knee abdoul wrap removed, mepilex CDI. Pt positioning self independently in bed. * Plan of Care - Nini Alex RN - 05/09/2013 1:47 AM EST Problem: Pain, Acute (Adult, Obstetric) Goal: Acute Pain: Acceptable Pain Control/Comfort Level - Pain, Acute (Adult, Obstetric) Patient tolerating dilaudid q3 prn. Patient states pain is 3-7/10. Patient aware to alert RN if pain is not being controlled with current pain medication. RN will monitor patient. Problem: Skin Integrity Impairment, Risk/Actual (Adult, Obstetric) Goal: Skin Integrity Impairment, Risk/Actual: Skin Integrity/Wound Healing Patients skin noted to be intact at this time except incision. Patient aware to reposition themselves every 2 hours. RN will monitor patients skin. * Initial Assessments - Zoe Pedroza, PT - 05/08/2013 12:43 PM EST PHYSICAL THERAPY Evaluation Patient is a [address] Gonzalez, admitted on 05/07/2013 with OA resulting in pain and impaired function. R TKA was performed on day of admission. Referred to PT per pathway. No past medical history on file. Past Surgical History Procedure Date ??? Created by interface ARTHROSCOPY KNEE,MENISCECTOMY SINGLE WITH SHAVING / LEFT/MEDIAL MENISCUS/MENISCECTOMY Procedure Date: 09/24/2004 ??? Created by interface TOTAL KNEE ARTHROPLASTY / LEFT/STAB.ROTATING PLATFORM/ANTIBIOTIC CEMENT Procedure Date: 04/29/2005 Premorbid environment/level of function/service at home: Pt lives in 1 story home with 3 steps to enter the home. Pt was ambulatory prior to surgery, without AD. He has support of and family at home. Precautions: WBAT R leg. Objective: Pt was seen today for gait, mobility and ambulation. His spouse was present during the treatment. Cardiovascular/labs: Hgb:12.8 Subjective: Pt states he is feeling much less nausea and pain at this point in time. He has a TKA on the other knee and is familiar with rehab. Behavior/Mental Status: Pt was oriented, but somewhat sleepy due to current medications Pain/Tenderness: Pt has some knee pain, but is more significantly affected by nausea Range of Motion: R Knee Flexion: 61 R Knee Extension: 11 Strength: Quad not responding due to FNB FNB effecting quad strength yes ( X), no ( ) Exercises: Pt was given an exercise list and the following exercises were performed: 1. Supine ankle pumps: 1 x 10 2. Supine heel slides: 1 x 10 3. Seated heel slides: 1 x 10 - Manual support was provided under knee, allowing pt to gain more ROM. 4. Passive extension with ankle support on towel roll. Mobility: Supine to sit: nt Sit to supine: Pt required mod assist x 1 to transfer pt leg into bed Sit to stand: Pt transferred to [facility] with CGand verbal cues. Stand to sit: Pt transferred from [facility] with CG. Gait: Pt was unable to ambulate due to nausea and FNB still affecting his L quad Todays activity instructions: Pt was asked to: 1. Keep knees in extension when in bed with roll under ankle. Assessment: Pt is POD #1 s/p L TKA functional mobility is limited by nausea and FNB. Pt became extremely nauseas after transferring from the recliner to the bed. Pt was unable to ambulate today and d/c plan was not discussed, as patient appeared to tired retain the information. Pt will benefit fromongoing PT for continued education and training in gait, ROM/strength ex's and functional mobility to acheive best post op outcome. Short Term Goals: (to be acheived by 05/10/2013) 1. Independent with home exercise program 2. Ind to supervised with bed mobility 3. Ind to supervised with sit to stand using a device 4. ROM of operated knee from 5 to 80-90 degrees to allow for optimal functional mobility. 5. Ind ambulation at least 150' with device WBAT, R LE. 6. Up and down 3 stairs with crutch and rail. Treatment Plan: Frequency/Rx to Include: daily until d/c per pathway for TKA ex's, mobility, gait and pt education/d/c planning. Discharge Plan as discussed with pt at this time: Home with VNA Patient/Caregiver Agrees with Goals/Rx Plan. Total Treatment Time: 24 for evaluation Total timed treatment: 0 MOSES Joyce Pt seen and note written in conjunction with MOSES Koehler, PT Pager [phone] * Discharge Summary - Mally Soares, HYDROMETER FINISHER - 05/08/2013 8:11 AM EST Department of Orthopedic Medicine - Discharge Summary Patient Name: Shaheen Bojorquez Sr. Patient Age: 63 y.o. Birthdate: 1950 Admit date: 05/07/2013 Discharge date: 05/11/2013 Attending Physician: Eyad Gonzalez MD Discharge Diagnoses (Hospital Problems) and Secondary Diagnoses (Chronic Problems): Active Hospital Problems Diagnosis ??? Osteoarthritis of knee s/p TKA Carlos 05/07/13 ??? Urinary retention Resolved Hospital Problems Diagnosis Date Resolved No resolved problems to display. Active Non-Hospital Problems Diagnosis ??? Arthritis of knee ??? Obesity, unspecified ??? Other and unspecified hyperlipidemia ??? Asymptomatic varicose veins Right greater saphenous Phlebitis Stasis ulcer ??? S/P knee replacement SURGERY DATE: 04/29/2005 Eyad Gonzalez M.D. Proposed Procedure: Left total knee arthroplasty. Summary of Components: 1. DePuy PFC Sigma knee system, nonporous cruciate substituting femoral component, size 5, left. 2. DePuy cross link stabilized polyethylene insert, 3 x 10 mm. 3. Modular tibial tray, size 5, DePuy. 4. Oval dome three peg patella, size 38 mm. Operations/Major Procedures: 05/07/2013 Surgeon(s) and Role: * Eyad Gonzalez MD - Primary * Arsen Marroquin III, MD Procedure: Right total knee arthroplasty History of Presentation: 63 yo Male presented with increasing limitation of right knee secondary to pain, wishes to proceed with elective total knee arthroplasty. Hospital Course: The patient was admitted via Same Day Surgery for the above operation. DVT prophylaxis: Coumadin. Patient began rehab on POD#1 w/ weight bearing as tolerated of right leg remembering to use protection as needed for balance and protection. Drains were removed POD# 1. Bates was removed POD#1 and patient required straight cath X 3 and bates catheter reinsertion on POD#2. On POD#3, the bates was discontinued and the patient was voiding spontaneously. He was started on Flomax and a follow-up appointment made with his PCP. Pt has a Mepilex silver dressing which will remain in place for 7 days. Patient did not have a bowel movement prior to discharge but was passing flatus and taking PO without difficulty. By POD#4 the patient was medically stable and was cleared for safe discharge to home. Important Studies and Lab Data: Labs: Lab Results Component Value Date HGB 10.9* 05/10/2013 HCT 32.8* 05/10/2013 Transfusions: No Studies: No new. Discharge Conditions/Prognosis: Stable, awake, and alert. Mobilizing with walker/crutches, pain controlled on oral medications. Vital Signs: Last value Range last 24 hrs Temperature Temp: 36.9 ??C (98.4 ??F) Temp: [36.3 ??C (97.3 ??F)-37.4 ??C (99.3 ??F)] Heart Rate Heart Rate: 106 Heart Rate: [101-106] Blood Pressure BP: 143/72 mmHg BP: (129-147)/(66-73) Respiratory Rate Resp: 16 Resp: [16-18] SpO2 SpO2: 98 % SpO2: [96 %-100 %] Art BP BP (Arterial Line): -- Discharge to: Home with VNA. Discharge Medications: Current Discharge Medication List New Meds Dose Details acetaminophen (TYLENOL) 500 mg tablet 1,000 mg Take 2 tablets by mouth every 8 hours. Last day for scheduled dosing = May.17. Then may take every 8 hours as needed. Do not take more than 4,000 mg of acetaminophen in 24 hours. OXYcodone (OXYCONTIN) 10 mg CR tablet 10 mg Take 1 tablet by mouth 2 times daily. Take one tablet every 12 hours for 5 days. Then take one tablet daily for 5 days. Then stop. senna-docusate (PERICOLACE) 8.6-50 mg per tablet 1-4 tablets Take 1-4 tablets by mouth 2 times daily. Qty: 60 tablet Refills: 0 sodium phosphates (FLEET) enema [address] 1 Bottle rectally once as needed for Constipation (take at home as needed for constipation). tamsulosin (FLOMAX) 0.4 mg capsule 0.4 mg Take 1 capsule by mouth daily. Qty: 5 tablet Refills: 0 warfarin (COUMADIN) 5 mg tablet 7.5 mg Take 1.5 tablets by mouth once for 1 dose. Your dose may vary depending on the INR value. You may need to break or combine pills to achieve the right dose. polyethylene glycol (MIRALAX) 17 gram packet 17 g Take 17 g by mouth 2 times daily. bisacodyl (DULCOLAX) 10 mg suppository [address] 1 suppository rectally daily as needed (Take daily as needed at home for constipation). enoxaparin (LOVENOX) 40 mg/0.4 mL Syrg injection 40 mg Inject 0.4 mLs subcutaneously daily as needed. Take daily as needed for INR less than 1.4. Once INR is 1.4 or above, stop the Lovenox. Your blood will be drawn on Tuesday, and you will be notified if you need to give yourself this injection. Qty: 2 Syringe Refills: 2 HYDROmorphone (DILAUDID) 2 mg tablet 2-6 mg Take 1-3 tablets by mouth every 3 hours as needed for Pain. Qty: 90 tablet Refills: 0 Continued medications, unchanged Dose Details amoxicillin (AMOXIL) 500 mg capsule 2000mg, PO, Pre procedure Medications STOPPED Dose aspirin 325 mg tablet Updated Allergies/ADRs: No Known Allergies Instructions Given to Patient at Discharge: Provider Instructions None General Instructions Activity: 1. You can weight bear as tolerated on your Right leg remembering to use a walker or crutches as needed for balance and protection. 2. Flexion AND extension are important to work on at home. You should NOT place a pillow under your right knee. To help with extension you can place a pillow under your heel or lower leg or placed lengthwise along the leg. Again DO NOT place a pillow under the operated knee for comfort. 3. You should wear the AYO hose to knee bilaterally until you are seen in followup. Remove these atleast once per day to inspect your skin. Coumadin flow sheet: Date Notes INR Coumadin dose (mg) 05/07 day of operation - 5 05/08 POD 1 1.0 5 05/09 POD 2 1.2 5 05/10 POD 3 1.2 Lovenox 40 + 7.5 05/11 D/C POD 4 1.2 Lovenox 40 (given) + 7.5 due at 5 pm Anti-coagulation follow up: 1. You should take 7.5 mg (one and one-half of the 5mg pills) of Coumadin today at 5 pm, (). Take this medication at the same time each day - usually 5pm. 2. Your coumadin level or INR target range is 2-3 and this will need to be checked by the Visiting Nurse on the day after discharge and at least twice per week thereafter (usually every Tuesday and ). The INR should be reported to the [facility] Ortho clinic at [phone], and you will be informed of any needed changes in your Coumadin dose. 3. If your INR level is ever above 3.5 you should not participate in aggressive Physical therapy exercises - you can mobilize/ambulate. This will decrease the possibility of more bleeding into your joint. Once your INR is less than 3.5 you can resume Physical therapy. One of the Orthopedic nurses will call you with further instructions as needed. 4. You will be on Coumadin for 4 weeks. After your dose on , STOP the Coumadin. On , begin enteric-coated Aspirin 325mg twice a day until you are seen in followup with your orthopedic surgeon. Lovenox injections: Your INR level did not increase as much as expected after surgery so you have been discharged on Lovenox AND coumadin. You will be on the Lovenox injections (40mg daily) until your INR level is greater than 1.4. Once that happens, stop the Lovenox and continue just the coumadin as instructed above. Diet: Resume usual diet, but increase your intake of fluids and fiber while you are on narcotic pain meds to prevent constipation Driving: No, not until you are cleared to do so by your Orthopedic surgeon. Ideally you should not drive if you are on narcotic pain meds as these can affect your judgement and reaction time. Call your surgeon with any questions. Medication: 1. The pain medication that you are using can cause constipation, so make sure you increase your intake of fluids and fiber while you are on them. You should also take the stool softener that was ordered, sennakot, to factilitate a bowel movement. An jcbb-drf-yrvrosv medication, miralax can also beused if needed to combat constipation 2. If you need a renewal on your narcotic pain medication, you need to give the Orthopedic clinic enough time to process your request. This can take up to three days, so plan accordingly. 3. You have been discharged on a long acting (Oxycontin) and short acting narcotic, (Dilaudid). Youwill be on these medications for a limited period of time only. Taper off the Oxycontin as indicated on your prescription (Take 10 mg every 12 hours for 5 days. Then take 10 mg daily for 5 days. Thenstop). 4. Continue the Tylenol around the clock for the next 10 days, (May.17). This can be effective incontrolling pain along with your other medications. Shower: 1. You can shower but remember your activity limitations and always have a chair available for balance and protection. DO NOT submerge the dressing/incision. 2. (Mepilex) Do not let water run over the operative dressing. If it becomes wet lightly pat the dressing dry. DO NOT submerge the incision. 3. You have aminah/sutures. Always cover them with a waterproof dressing or plastic bag when showering until they are removed. 4. After aminah/sutures are removed you can let water run gently over the incision. Wound (Mepilex): 1. Sutures/aminah: Staple/suture removal 11-14 days after surgery (approximately 05/21/12). 2. Remove your operative dressing 7 days from your surgery (05/14/13). When it is removed you can leave the incision open to air or cover it with a light dressing. 3. If you have lots of drainage when you get home (and it is before 05/14/13), remove this operative dressing and replace it with dry sterile gauze. Continue with daily dressing changes (and as needed) until the drainage stops, then remove the dressing and leave the incision open to air or lightly covered. FOLLOWUP APPOINTMENTS: 1. You will have followup appointments at [facility] as indicated in Future Appointments and Orders. You will have an xray prior to those appointments so please come to Radiology, desk 3T, 1 hour BEFORE your appointment for those x-rays. 2. You have a follow-up appointment with your Primary Care Provider, Dr. Taylor ([phone]), on May 15 at 10:40 am. This appointment is for evaluation/monitoring of your urinary output. You have enough Flomax to last until this appointment. Ask Dr. Taylor, if you should continue with this prescription. Future Appointments and Orders Future Appointments: Provider: Department: Dept Phone: Center: 06/14/2013 9:40 AM Eyad Gonzalez MD Orthopaedics [phone] None Joint Appt Health Question [facility] Orthopa[facility]ics [phone] None Future Orders Please Complete By Expires Referral for Anticoagulation Monitoring [[id number] Custom] Process Instructions: If no progress note charted, please enter Clinical details in comments. Scheduling Instructions: Comments: Questions: Responses: Responsible Group [facility] Reason for referral Coumadin, s/p Right TKA 05/07/2013 Risk Factors: Next due INR 05/11/2013 INR Goal 2.0-3.0 Target End Date 06/03/2013 Referral to Home Health [[id number] CPT(R)] Process Instructions: Scheduling Instructions: Comments: [facility]. PHONE: [phone] FAX: [phone] DISCHARGE DOCUMENTATION FOR VNA SERVICES (INCLUDING THOSE PATIENTS WITH MEDICARE COVERAGE BEING DISCHARGED HOME WITH VNA SERVICES AND THOSE PATIENTS WITH MEDICARE COVERAGE WHO ARE BEING DISCHARGED HOME WITH HOSPICE SERVICES) Shaheen Bojorquez Sr. [address] [place], [place] [id number] [phone] (home) [phone] (work) No relevant phone numbers on file. [employer]: In discussion with the attending physician, it is certified that this patient is under their care and that they, or a nurse practitioner, clinical nurse specialist or physician's assistant boiler operator who is working directly with them, had a face to face encounter that meets the physician face to face encounter requirements with this patient on 05/08/2013 The encounter with the patient was in whole, or in part, for the following medical condition, whichis the primary reason for home health care services: [ R TKA ] In discussion with the primary medical team, it is certified that, based on their findings, the indicated services are medically necessary and appropriate for home health services. HOME HEALTH AGENCY: [facility] Home care orders for Total KneeArthroplasty: 1.RN: Draw PT/INR as follows: Draw INR on Tuesday, , Thereafter, PT/INR: every Tuesday and PT/INR results to be called and faxed as follows Tue-Tue Ortho anticoagulation (Coumadin) clinic @ [facility]: ; Sat/Sun: if the PT/INR is drawn on the weekend, call the results to the Orthopedic Resident on callat [phone] for Coumadin dose Point of care testing is acceptable Assess wound , med management, nutrition, and elimination Do not lift the edge of the mepilex dressing to observe the incision; this dressing needs to stay in place until 7 days after surgery. Suture or Staple removal in 10-14 days - May 21. 2. PT: Continue PT rehab for balance, endurance, joint mobility, ROM, Strength, TKA Protocol 3x/wk , within 24 hrs of d/c including weekends. Please note that any additional orders needs or changes will need to be obtained from this patient's PCP: SHAHEEN TAYLOR MD [address] [place] [id number] All A agencies which cover the area of patient's residence have been reviewed, either verbally dae writing, and patient/family have chosen the indicated home health care agency for home services. Questions: Responses: Agency name and contact information [facility] Patient location post discharge home What services are requested Registered Nurse Physical Therapy Start date Responsible MD post discharge contact info Primary Care Provider: SHAHEEN TAYLOR MD [phone] Dr. Gonzalez: Joints: [phone] After Hours: Call [phone] request to speak with the Orthopaedic Resident consulting solution manager. Electronically Signed by: MALLY SOARES APRN 05/11/2013 * Plan of Care - Beth Buenrostro RN - 05/08/2013 1:11 AM EST Problem: Knee Replacement, Total (Adult) Intervention: Knee Replacement Positioning Assisted the patient to reposition his leg for comfort. Problem: Pain, Acute (Adult, Obstetric) Intervention: Acute Pain: Signs and Symptoms The patient has severe pain to operative knee. The patient was medicated with PRN medications as ordered. The physician was contacted to adjust pain medication due to uncontrolled pain. * OR Attestation - Eyad Gonzalez MD - 05/07/2013 5:21 PM EST Attestation: Case Date: 05/07/2013 I was present and I participated during the entire procedure (does not need to include opening and closing). EYAD GONZALEZ MD 05/07/2013 * Op Note - Eyad Gonzalez MD - 05/07/2013 5:17 PM EST [facility] Operative Note Patient Name: Shaheen Bojorquez Sr. : [id number] MR#: [id number] Case Date: 05/07/2013 Surgeon: Surgeon(s) and Role: * Eyad Gonzalez MD - Primary * Arsen Marroquin III, MD Preoperative diagnosis: osteoarthritis Postoperative diagnosis: osteoarthritis Procedure(s): RIGHT TOTAL KNEE ARTHROPLASTY MODIFIER STABILIZED ROTATING PLATFORM DEPUY Spinal Estimated Blood Loss: 300 CC FLUIDS:2100 CC CRYSTALLOID Drains: CONSTAVAC Urine Output: 450 mL Tourniquet Time: 39 minutes. FINDINGS: ADVANCED DJD WITH SEVERE VARUS DEFORMITY Right TKR Post OP RT Intra Op Knee Flexion (degrees): 110 RT Intra Op Knee Extension (degrees): 0 RT Intra Op Stability Ap Translation: <5mm RT Intra Op Stability Varus: <5mm RT Intra Op Stability Valgus: <5mm RT Lateral Release Performed: No RT Intra Op Bone Cement : Antibiotic RT Intra Op Surgical Approach: Midvastus RT Intra Op FX at Index Surgery: No RT Patient Specific Instrument Used: No RT Computer Assisted Case: No Implant Name Type Inv. Item Serial No. Area Operations Director Lot No. LRB No. Used Action CEMENT,BNE,CMW 1,GNTA,40GM ([id number]) - [id number] IMPLANTS CEMENT,BNE,CMW 1,GNTA,40GM ([id number]) [employer]uy Automation Tech - [id number] Right 1 Implanted CHAN,PFC,SGM,OVL,3PG,STD,38MM ([id number]) (AUTOREQ) - [id number] IMPLANTS CHAN,PFC,SGM,OVL,3PG,STD,38MM ([id number]) (AUTOREQ) [employer]uy Automation Tech - [facility] [id number] Right 1 Implanted TRAY,TIB,LCS,MBT,CMNT,KEEL,SZ5 ([id number]) (AUTOREQ) - [id number] IMPLANTS TRAY,TIB,LCS,MBT,CMNT,KEEL,SZ5 ([id number]) (AUTOREQ) [employer] Autom[employer] Tech - [id number] Right 1 Implanted INSER,PFC,SGM,RP,STAB,SZ5,10MM ([id number]) (AUTOREQ) - [id number] IMPLANTS INSER,PFC,SGM,RP,STAB,SZ5,10MM ([id number]) (AUTOREQ) [employer] Automation Tech - [id number] Right 1 Implanted COMPO,SGM,FEM,PS,CMNT,LUG,R,5 ([id number]) (AUTOREQ) - [id number] IMPLANTS COMPO,SGM,FEM,PS,CMNT,LUG,R,5 ([id number]) (AUTOREQ) [employer]uy Automation Tech - [facility] [id number] Right 1 Implanted INDICATIONS: The is a 63-year-old male with degenerative arthritis of the right knee. After discussion of the risks and benefits, the decision was made to proceed to operative treatment after having been refractory to a course of nonoperative management. DESCRIPTION OF THE PROCEDURE: After being identified, marked, and consented in the preoperative holding area, a femoral nerve block was administered by the anesthesia team. The patient proceeded to the operative theater where a high thigh tourniquet was placed. A preoperative time-out was held and the patient received preoperative antibiotics. The leg was prepped and draped in the sterile fashion. His leg was exsanguinated using an Abdoul bandage and the tourniquet was inflated. A median parapatellar approach was used. A 10-blade was used to come through the skin and then skin flaps were elevated medially and laterally. A vastus splitting technique was used using a deep 10-blade coming on the medial aspect around the patella and down to the tibial tubercle. A medial peel was performed using Bovie electrocautery subperiosteally along the superior margin of the tibial plateau to the mid-coronal plane. The patella was everted and the knee flexed. The portion of the infrapatellar fat pad wasremoved using the Bovie. The overlying synovium on the anterior cortex of the femur was removed using the Bovie. The ACL and PCL were taken off of the femoral insertions using the Bovie. Attention was turned to preparation of the tibia. A salad fork was placed along the posterior tibiaand the tibia was subluxed anteriorly. Using the extramedullary cutting guide with 0 degrees of slope, it was pinned into place. An oscillating saw was used to take a very thin wafer of bone off of the medial plateau and a larger cut off of the lateral plateau. All overhanging osteophytes and all loose bodies were removed at this time as well. We checked the posterior condyles of the femur and overhanging osteophytes were removed using a wheat elevator and a pituitary rongeur. After finishing thetibial cut, the tibial plateau was sized to a size 5 tibial component. Using a starting point just anterior to the femoral insertion of the PCL, an awl was inserted into the intramedullary canal. A step drill was then used to enter the canal to the level of the fluids. The canal was suctioned and a T-handled reamer was passed. The intramedullary femoral alignment guide was then placed which was set at 6 degrees of valgus. This was then pinned onto the distal femur. The intramedullary alignment guide was then removed and the distal femoral cut was made with an oscillating saw. The femur was sized at a size 5 using the posterior condyles as a reference catherine. A four-in-one cutting guide was placed in 3 degrees of external rotation. Using an oscillating saw, the an terior-posterior and anterior and posterior chamfer cuts were made making sure that they were flushwith cutting guide. The box cutting guide was then inserted in the previous pin holes and an oscillating saw was used to remove the notch cut. Overhanging osteophytes were removed. A salad fork was placed along the posterior tibia and the tibia was subluxed anteriorly. The tray was left in place. A10-mm polyethylene trial was inserted and the knee was extended fully, it was stable in full extension and to varus and valgus force with increasing flexion. Satisfied with our trial components, attention was then turned to the patella. Preparation of the patella was performed with a cut guide. The patella was sized with a size 38 oval patellar button. Lug holes were drilled. A patellar trial was inserted and was found using the calipers that the combined thickness of the patellar button and the remaining patella was equal to the previous thickness of the patella. Tracking the patella and the trial component was checked and was found to move freely.All trial components were removed. Attention was returned to the tibial plateau. The tibial tray was pinned into place with the center of the tray over the medial third of the tibial tubercle. Final preparation was completed of the tibia with a smokestack followed by a keel punch. All components were then removed and the knee was copiously irrigated. A bone plug was inserted into the femoral canal. Once the wound had been copiously irrigated and dried, the tibial tray was inserted after packing the tibial plateau with cement. The tibial tray was impacted into place and a Omaha elevator was used to remove all overhanging cement. Similarly, the distal femoral component was impacted into place. Overhanging cement was removed using a [place] elevator. The 10mm rotating platform polyethylene was inserted and the knee was extended fully and held in axial compression. The tibial button was then cemented into place and held with pressure. Overhanging cement was removed using aFreer elevator. The wound was filled with irrigation. Once the cement had cured, the tourniquet waslet down. The area was suctioned out. Hemostasis was achieved. There were no bony loose bodies visible. A drain was passed from the inside of the joint laterally. The capsule was closed using a 2 quill suture after re-approximation with 0 vicryl. The next layer of closure was irrigated and the subcutaneous tissue was closed using combination of 2-0 and 3-0 Vicryl sutures. The wound was closed using aminah, dry sterile dressing was placed, followed by a bdc-af-peusz Abdoul band and Cryo/Cuff. The patient was transferred to a hospital bed. Her drain was hooked up to suction and he was discharged to the PACU in stable condition having tolerated the procedure well. There appeared to be no operative complications. Disposition: awakened from anesthesia, extubated and taken to the recovery room in a stable condition, having suffered no apparent untoward event. Condition: doing well without problems * Miscellaneous - Provider, Scanning - 05/07/2013 4:04 PM EST documented in this encounter Plan of Treatment Upcoming Encounters Date Type Department Care Team (Late st Contact Info) Description 06/21/2024 11:15 AM EST Office Visit Neurosurgery at [address] [place] [address] Riley Parisi MD [address] [place] [address] Canelo Hodgson PA [address] [place] [address] Scheduled Referrals Name Type Priority Associated Diagnoses Order Schedule Referral for Anticoagulation Monitoring Outpatient Referral Routine Arthritis of knee Ordered: 05/11/2013 documented as of this encounter Procedures Procedure Name Priority Date/Time Associated Diagnosis Comments LAB SCAN 05/12/2013 10:01 AM EST IMPLANTABLE DEVICES SCAN 05/12/2013 10:01 AM EST PROTHROMBIN TIME Routine 05/11/2013 3:23 AM EST DIFFERENTIAL, AUTOMATED Routine 05/10/2013 3:21 AM EST PROTHROMBIN TIME Routine 05/10/2013 3:21 AM EST CBC (WITH DIFF) Routine 05/10/2013 3:21 AM EST BASIC METABOLIC PANEL Routine 05/10/2013 3:21 AM EST DIFFERENTIAL, AUTOMATED Routine 05/09/2013 3:32 AM EST PROTHROMBIN TIME Routine 05/09/2013 3:32 AM EST CBC (WITH DIFF) Routine 05/09/2013 3:32 AM EST BASIC METABOLIC PANEL Routine 05/09/2013 3:32 AM EST DIFFERENTIAL, AUTOMATED Routine 05/08/2013 3:27 AM EST PROTHROMBIN TIME Routine 05/08/2013 3:27 AM EST CBC (WITH DIFF) Routine 05/08/2013 3:27 AM EST BASIC METABOLIC PANEL Routine 05/08/2013 3:27 AM EST SPECIMEN TO PATHOLOGY Routine 05/07/2013 4:54 PM EST SURGICAL PATHOLOGY REPORT Routine 05/07/2013 4:53 PM EST MODIFIER STABILIZED ROTATING PLATFORM DEPUY 05/07/2013 3:38 PM EST Arthritis of knee TOTAL KNEE ARTHROPLASTY (WRVU 19.6) 05/07/2013 3:38 PM EST Arthritis of knee documented in this encounter Results * SCAN DOC: IMPLANTABLE DEVICES (05/12/2013 10:01 AM EST) Narrative 05/12/2013 10:01 AM EST Procedure Note Provider, Scanning - 05/12/2013 10:01 AM EST Scanning Provider MEDIA MGR SCAN EXT O RDR/RSLT * SCAN DOC: LAB (05/12/2013 10:01 AM EST) Narrative 05/12/2013 10:01 AM EST Procedure Note Provider, Scanning - 05/12/2013 10:01 AM EST Scanning Provider MEDIA MGR SCAN EXT O RDR/RSLT * (ABNORMAL) Prothrombin Time (05/11/2013 3:23 AM EST) Prothrombin Time 15.6(H) 12.0 - 15.0 sec [facility] Comment: [facility] Transfusion Committee Guidelines: INR less than 2.0, PTT less than OR equal to 43.5 seconds, or Fibrinogen greater than or equal to 100 mg/dl indicate adequate procoagulant activity for hemostasis in patients without underlying bleeding disorders. International Normalization Ratio 1.2(H) 0.9 - 1.1 [facility] Blood specimen (specimen) 05/11/2013 3:23 AM EST 05/11/2013 3:37 AM EST Narrative Resulting Agency Comment Spec In Lab Eyad Gonzalez MD HEMATOLOGY ORDERABLE S CERNER MILLENNIUM * (ABNORMAL) Differential, Automated (05/10/2013 3:21 AM EST) Neutrophil % 72.9(H) 34.0 - 71.0 % CERNER MILLENNIUM Neutrophil Absolute 8.75(H) 1.50 - 6.30 x10(3)/mc L CERNER MILLENNIUM Lymph % 12.4(L) 19.0 - 53.0 % CERNER MILLENNIUM Lymphocytes Abs 1.5 1.0 - 3.6 x10(3)/mc L CERNER MILLENNIUM Monocyte % 12.8 4.0 - 13.0 % CERNER MILLENNIUM Monocyte Abs 1.5(H) 0.2 - 1.0 x10(3)/mc L CERNER MILLENNIUM Eos % 1.5 0.0 - 7.0 % CERNER MILLENNIUM Eosinophils Abs 0.2 0.0 - 0.5 x10(3)/mc L CERNER MILLENNIUM Basophil % 0.1 0.0 - 2.0 % CERNER MILLENNIUM Baso Absolute 0.0 0.0 - 0.2 x10(3)/mc L CERN[facility] MILLENNIUM Immature Gran % 0.30 0.00 - 0.66 % CERNER MILLENNIUM Comment: Immature granulocytes(IG's)percentage and absolute count will include metamyelocytes, myelocytes, and promyelocytes. Blood smears from CBCs yielding IG's will be scanned manually for concordance. If this scan disagrees with the automated IG or if promyelocytes are noted, a manual differential will be performed. Immature Gran Absolute 0.03 0.00 - 0.05 x10(3)/mc L [facility] MILLENNIUM Blood specimen (specimen) 05/10/2013 3:21 AM EST 05/10/2013 3:35 AM EST Eyad Gonzalez MD HEMATOLOGY ORDERABLE S Performing Organization Address [facility] de Phone Number ROSEMARY APPIAHIUM * (ABNORMAL) Prothrombin Time (05/10/2013 3:21 AM EST) Prothrombin Time 15.6(H) 12.0 - 15.0 sec CERNER MILLENNIUM Comment: [facility] Transfusion Committee Guidelines: INR less than 2.0, PTT less than OR equal to 43.5 seconds, or Fibrinogen greater than or equal to 100 mg/dl indicate adequate procoagulant activity for hemostasis in patients without underlying bleeding disorders. International Normalization Ratio 1.2(H) 0.9 - 1.1 C[facility] MILLENNIUM Blood specimen (specimen) 05/10/2013 3:21 AM EST 05/10/2013 3:35 AM EST Narrative Resulting Agency Comment Spec In Lab Eyad Gonzalez MD HEMATOLOGY ORDERABLE S Performing Organization Address [facility] de Phone Number [facility] ANGUI[facility]NIUM * (ABNORMAL) Basic Metabolic Panel (non-fasting) (05/10/2013 3:21 AM EST) Glucose 119 60 - 199 mg/dL CERN[facility] MILLENNIUM Comment:Diabetes: >=200 mg/d L plus symptoms Blood Urea Nitrogen 15 10 - 20 mg/dL CERNER MILLENNIUM Creatinine 1.05 0.80 - 1.50 mg/dL CERNER MILLENNIUM Comment: Please note that the pediatric reference intervals supplied above were not validated at [facility]. Results from pediatric patients should be interpreted [...] Narrative Resulting Agency Comment Spec In Lab Eyad Gonzalez MD CHEMISTRY ORDERABLES CERNER MILLENNIUM * (ABNORMAL) CBC (with Diff) (05/10/2013 3:21 AM EST) White Blood Cell 12.0(H) 4.0 - 10.0 x10(3)/mc L CERNER MILLENNIUM Red Blood Cell 3.65(L) 4.63 - 6.08 x10(6)/mc L CERNER MILLENNIUM Hemoglobin 10.9(L) 13.7 - 17.5 gm/dL CERNER MILLENNIUM Hematocrit 32.8(L) 40.0 - 51.0 % CERNER MILLENNIUM Mean Cell Volume 89.9 79.0 - 92.0 fL CERNER MILLENNIUM Mean Cell Hemoglobin 29.9 25.6 - 32.2 pg CERNER MILLENNIUM Mean Cell Hemoglobin Concentration 33.2 32.0 - 36.5 gm/dL CERNER MILLENNIUM Platelet 162 145 - 370 x10(3)/mc L CERNER MILLENNIUM RDW Standard Deviation 42.0 35.0 - 46.0 fL CERNER MILLENNIUM RDW coefficient of variation 12.9 10.9 - 14.4 % CERNER MILLENNIUM Mean Platelet Volume 9.9 9.0 - 12.0 fL CERNER MILLENNIUM Blood specimen (specimen) 05/10/2013 3:21 AM EST 05/10/2013 3:35 AM EST Narrative Resulting Agency Comment Spec In Lab Eyad Gonzalez MD HEMATOLOGY ORDERABLE S CERNER MILLENNIUM * (ABNORMAL) Differential, Automated (05/09/2013 3:32 AM EST) Neutrophil % 74.5(H) 34.0 - 71.0 % CERNER MILLENNIUM Neutrophil Absolute 10.79(H) 1.50 - 6.30 x10(3)/mc L CERNER MILLENNIUM Lymph % 9.5(L) 19.0 - 53.0 % CERNER MILLENNIUM Lymphocytes Abs 1.4 1.0 - 3.6 x10(3)/mc L CERNER MILLENNIUM Monocyte % 15.4(H) 4.0 - 13.0 % CERNER MILLENNIUM Monocyte Abs 2.2(H) 0.2 - 1.0 x10(3)/mc L CERNER MILLENNIUM Eos % 0.3 0.0 - 7.0 % CERNER MILLENNIUM Eosinophils Abs 0.0 0.0 - 0.5 x10(3)/mc L CERNER MILLENNIUM Basophil % 0.1 0.0 - 2.0 % CERNER MILLENNIUM Baso Absolute 0.0 0.0 - 0.2 x10(3)/mc L CERNER MILLENNIUM Immature Gran % 0.20 0.00 - 0.66 % CERNER MILLENNIUM Comment: Immature granulocytes(IG's)percentage and absolute count will include metamyelocytes, myelocytes, and promyelocytes. Blood smears from CBCs yielding IG's will be scanned manually for concordance. If this scan disagrees with the automated IG or if promyelocytes are noted, a manual differential will be performed. Immature Gran Absolute 0.03 0.00 - 0.05 x10(3)/mc L CERNER MILLENNIUM Blood specimen (specimen) 05/09/2013 3:32 AM EST 05/09/2013 3:36 AM EST Eyad Gonzalez MD HEMATOLOGY ORDERABLE S Performing Organization Address [facility] Co de Phone Number ROSEMARY GUERRA * (ABNORMAL) Prothrombin Time (05/09/2013 3:32 AM EST) Prothrombin Time 15.9(H) 12.0 - 15.0 sec CERNER MILLENNIUM Comment: [facility] Transfusion Committee Guidelines: INR less than 2.0, PTT less than OR equal to 43.5 seconds, or Fibrinogen greater than or equal to 100 mg/dl indicate adequate procoagulant activity for hemostasis in patients without underlying bleeding disorders. International Normalization Ratio 1.2(H) 0.9 - 1.1 CERN[facility] MILLENNIUM Blood specimen (specimen) 05/09/2013 3:32 AM EST 05/09/2013 3:36 AM EST Narrative Resulting Agency Comment Spec In Lab Eyad Gonzalez MD HEMATOLOGY ORDERABLE S Performing Organization Address [facility] de Phone Number ROSEMARY GUERRA * Basic Metabolic Panel (non-fasting) (05/09/2013 3:32 AM EST) Glucose 134 60 - 199 mg/dL CERNER MILLENNIUM Comment:Diabetes: >=200 mg/d L plus symptoms Blood Urea Nitrogen 14 10 - 20 mg/dL CERNER MILLENNIUM Creatinine 0.97 0.80 - 1.50 mg/dL CERNER MILLENNIUM Comment: Please note that the pediatric reference intervals supplied above were not validated at [facility]. Results from pediatric patients should be interpreted in conjunction to the patient's age, height and muscle mass. Sodium 135 135 - 145 mmol/L CERNER MILLENNIUM Potassium 4.0 3.5 - 5.0 mmol/L CERNER MILLENNIUM Comment: Please note: ??Patients with WBC >100,000 may have falsely elevated Potassium levels. ??For accurate Potassium quantification in these patients send serum separator tube (gold top) for subsequent determinations. ??Contact the Clinical Chemistry Laboratory if there are any questions. Chloride 100 98 - 107 mmol/L CERNER MILLENNIUM Carbon Dioxide 25 22 - 31 mmol/L CERNER MILLENNIUM Anion Gap 10 5 - 15 mmol/L CERNER MILLENNIUM Calcium 8.5 8.5 - 10.5 mg/dL CERNER MILLENNIUM Est [...] internet browser. http://www.nkdep.nih.gov/lab-evaluation.shtml http://www.kidney.org/professionals/ Blood specimen (specimen) 05/09/2013 3:32 AM EST 05/09/2013 3:36 AM EST Narrative Resulting Agency Comment Spec In Lab Eyad Gonzalez MD CHEMISTRY ORDERABLES [facility] * (ABNORMAL) CBC (with Diff) (05/09/2013 3:32 AM EST) White Blood Cell 14.5(H) 4.0 - 10.0 x10(3)/mc L CERNER MILLENNIUM Red Blood Cell 3.94(L) 4.63 - 6.08 x10(6)/mc L CERNER MILLENNIUM Hemoglobin 11.6(L) 13.7 - 17.5 gm/dL CERNER MILLENNIUM Hematocrit 34.6(L) 40.0 - 51.0 % CERNER MILLENNIUM Mean Cell Volume 87.8 79.0 - 92.0 fL CERNER MILLENNIUM Mean Cell Hemoglobin 29.4 25.6 - 32.2 pg CERNER MILLENNIUM Mean Cell Hemoglobin Concentration 33.5 32.0 - 36.5 gm/dL CERNER MILLENNIUM Platelet 170 145 - 370 x10(3)/mc L CERNER MILLENNIUM RDW Standard Deviation 41.3 35.0 - 46.0 fL CERNER MILLENNIUM RDW coefficient of variation 12.7 10.9 - 14.4 % CERNER MILLENNIUM Mean Platelet Volume 9.6 9.0 - 12.0 fL CERNER MILLENNIUM Blood specimen (specimen) 05/09/2013 3:32 AM EST 05/09/2013 3:36 AM EST Narrative Resulting Agency Comment Spec In Lab Eyad Gonzalez MD HEMATOLOGY ORDERABLE S CERNER MILLENNIUM * (ABNORMAL) Differential, Automated (05/08/2013 3:27 AM EST) Neutrophil % 88.1(H) 34.0 - 71.0 % CERNER MILLENNIUM Neutrophil Absolute 13.04(H) 1.50 - 6.30 x10(3)/mc L CERNER MILLENNIUM Lymph % 8.6(L) 19.0 - 53.0 % CERNER MILLENNIUM Lymphocytes Abs 1.3 1.0 - 3.6 x10(3)/mc L CERNER MILLENNIUM Monocyte % 3.0(L) 4.0 - 13.0 % CERNER MILLENNIUM Monocyte Abs 0.4 0.2 - 1.0 x10(3)/mc L CERNER MILLENNIUM Eos % 0.0 0.0 - 7.0 % CERNER MILLENNIUM Eosinophils Abs 0.0 0.0 - 0.5 x10(3)/mc L CERNER MILLENNIUM Basophil % 0.1 0.0 - 2.0 % CERNER MILLENNIUM Baso Absolute 0.0 0.0 - 0.2 x10(3)/mc L CERNER MILLENNIUM Immature Gran % 0.20 0.00 - 0.66 % CERNER MILLENNIUM Comment: Immature granulocytes(IG's)percentage and absolute count will include metamyelocytes, myelocytes, and promyelocytes. Blood smears from CBCs yielding IG's will be scanned manually for concordance. If this scan disagrees with the automated IG or if promyelocytes are noted, a manual differential will be performed. Immature Gran Absolute 0.03 0.00 - 0.05 x10(3)/mc L CERNER MILLENNIUM Blood specimen (specimen) 05/08/2013 3:27 AM EST 05/08/2013 3:40 AM EST Eyad Gonzalez MD HEMATOLOGY ORDERABLE S Performing Organization Address [facility] Co de Phone Number ROSEMARY GUERRA * Prothrombin Time (05/08/2013 3:27 AM EST) Prothrombin Time 13.8 12.0 - 15.0 sec CERNER MILLENNIUM Comment: [facility] Transfusion Committee Guidelines: INR less than 2.0, PTT less than OR equal to 43.5 seconds, or Fibrinogen greater than or equal to 100 mg/dl indicate adequate procoagulant activity for hemostasis in patients without underlying bleeding disorders. International Normalization Ratio 1.0 0.9 - 1.1 CERNER MILLENNIUM Blood specimen (specimen) 05/08/2013 3:27 AM EST 05/08/2013 3:40 AM EST Narrative Resulting Agency Comment Spec In Lab Eyad Gonzalez MD HEMATOLOGY ORDERABLE S Performing Organization Address [facility] [facility] de Phone Number CERCATRACHO APPIAHIUM * Basic Metabolic Panel (non-fasting) (05/08/2013 3:27 AM EST) Glucose 151 60 - 199 mg/dL CERNER MILLENNIUM Comment:Diabetes: >=200 mg/d L plus symptoms Blood Urea Nitrogen 16 10 - 20 mg/dL CERNER MILLENNIUM Creatinine 1.02 0.80 - 1.50 mg/dL CERNER MILLENNIUM Comment: Please note that the pediatric reference intervals supplied above were not validated at [facility]. Results from pediatric patients should be interpreted in conjunction to the patient's age, height and muscle mass. Sodium 137 135 - 145 mmol/L CERNER MILLENNIUM Potassium 4.1 3.5 - 5.0 mmol/L CERNER MILLENNIUM Comment: Please note: ??Patients with WBC >100,000 may have falsely elevated Potassium levels. ??For accurate Potassium quantification in these patients send serum separator tube (gold top) for subsequent determinations. ??Contact the Clinical Chemistry Laboratory if there are any questions. Chloride 102 98 - 107 mmol/L CERNER MILLENNIUM Carbon Dioxide 25 22 - 31 mmol/L CERNER MILLENNIUM Anion Gap 10 5 - 15 mmol/L CERNER MILLENNIUM Calcium [...] internet browser. http://www.nkdep.nih.gov/lab-evaluation.shtml http://www.kidney.org/professionals/ Blood specimen (specimen) 05/08/2013 3:27 AM EST 05/08/2013 3:40 AM EST Narrative Resulting Agency Comment Spec In Lab Eyad Gonzalez MD CHEMISTRY ORDERABLES [facility] * (ABNORMAL) CBC (with Diff) (05/08/2013 3:27 AM EST) White Blood Cell 14.8(H) 4.0 - 10.0 x10(3)/mc L CERNER MILLENNIUM Red Blood Cell 4.37(L) 4.63 - 6.08 x10(6)/mc L CERNER MILLENNIUM Hemoglobin 12.8(L) 13.7 - 17.5 gm/dL CERNER MILLENNIUM Hematocrit 38.4(L) 40.0 - 51.0 % CERNER MILLENNIUM Mean Cell Volume 87.9 79.0 - 92.0 fL CERNER MILLENNIUM Mean Cell Hemoglobin 29.3 25.6 - 32.2 pg CERNER MILLENNIUM Mean Cell Hemoglobin Concentration 33.3 32.0 - 36.5 gm/dL CERNER MILLENNIUM Platelet 208 145 - 370 x10(3)/mc L CERNER MILLENNIUM RDW Standard Deviation 40.3 35.0 - 46.0 fL CERNER MILLENNIUM RDW coefficient of variation 12.5 10.9 - 14.4 % CERNER MILLENNIUM Mean Platelet Volume 10.2 9.0 - 12.0 fL CERNER MILLENNIUM Blood specimen (specimen) 05/08/2013 3:27 AM EST 05/08/2013 3:40 AM EST Narrative Resulting Agency Comment Spec In Lab Eyad Gonzalez MD HEMATOLOGY ORDERABLE S ROSEMARY GUERRA * Specimen to Pathology (surgical or derm) (05/07/2013 4:54 PM EST) AP Specimen 05/07/2013 4:54 PM EST 05/07/2013 4:54 PM EST Narrative CORINNENER BIJALIUM - 05/07/2013 4:54 PM EST Specimen requisition ordered. ??Separate Pathology report to follow Eyad Gonzalez MD PATHOLOGY/CYTOLOGY O RDERABLES ROSEMARY GUERRA * Surgical Pathology Report (05/07/2013 4:53 PM EST) Surgical Pathology Report ? [facility] ? Provider: ?? EYAD GONZALEZ ?? Pt. Name: ?? CHRIS DUMONT, SHAHEEN Leblanc ? Acc #: ?[id number] ?Pt. ? Col Date: ?? 05/07/2013 ?/Sex: ?1950,(63 years),Male ? Rec Date: ?? 05/07/2013 ?LOC: ?[id number] ? SURGICAL PATHOLOGY ? ---Pathologic Diagnosis--- ? Articular bone and soft tissue consistent with osteoarthritis, right knee. ?Gross surgical pathology examination. ? CR-0 ? 05/07/13 ? EJR ? 05/08/13 Verified by: ? Jed ABBOTT, Ginger Skinner ? Pathologist ? (Electronic Signature) ? The attending pathologist whose signature appears on this report has ? reviewed all diagnostic slides and has edited the gross and/or ? microscopic portion of the report in rendering the final pathologic ? diagnosis. ? ---Gross Description--- ? A - Labeled/Fixative: Right knee bone and tissue, fresh. ? Quantity/Size: Multiple, 8.0 x 5.0 x 4.0 cm in aggregate. ? Tissue Description: Fragments of yellow-white, hard, irregular bone, ? cartilage and soft tissue. ? Articular Surface: Focally granular. ? Eburnation: Identified. ? Osteophytes: Identified. ? Sections/Processi ng: No sections are submitted. ??ejr ? ---Clinical Information--- ? Specimen Submitted: ? A - Right knee wagoner and tissue ? Clinical History: ? Osteoarthritis ? Clinical Diagnosis: ? Same ROSEMARY GUERRA 05/07/2013 4:53 PM EST Eyad Gonzalez MD PATHOLOGY/CYTOLOGY O KEVIN Performing Organization Address City/State/[facility] Co de Phone Number ROSEMARY GUERRA documented in this encounter Visit Diagnoses Diagnosis Osteoarthritis of knee s/p TKA Gonzalez 05/07/13- Primary Osteoarthrosis, unspecified whether generalized or localized, lower leg Arthritis of knee Unspecified arthropathy, lower leg Urinary retention Retention of urine, unspecified Arthritis of knee Unspecified arthropathy, lower leg documented in this encounter Active and Recently Administered Medications Times are shown in EST. Scheduled Medication Order 05/09/2013 05/10/2013 05/11/2013 acetaminophen (TYLENOL) tablet 1,000 mg 1,000 mg, Oral, EVERY 8 HOURS SCHEDULED, First dose on Tue05/07/13 at 2200, Until Discontinued, Maximum dose of acetaminophen is 4000 mg from all sources in 24 hours., Routine 0540 (Given - Provider: Nini Alex RN)1436 (Given - Provider: Zoe Galeas RN)2119 (Given - Provider: Beth Buenrostro, YURI) 06 (Given - Provider: Beth Buenrostro, YURI)1407 (Given - Provider: Jus Austin RN)2044 (Given - Provider: Ale Bolaños, YURI) 0654 (Given - Provider: Ale Bolaños, YURI) enoxaparin (LOVENOX) injection 40 mg (COMPLETED) 40 mg, Subcutaneous, ONCE, 1 dose, On Tue05/10/13 at 0930, Routine 1033 (Given by Other - Provider: Shira Hess RN - Comment: pt self administered) enoxaparin (LOVENOX) injection 40 mg (COMPLETED) 40 mg, Subcutaneous, ONCE, 1 dose, On Tue05/11/13 at 0900, Routine 0821 (Given by Other - Provider: Kristi Reina RN) multivitamin Ygjh-Pb-IG-Min (THERAPEUTIC-M) 27-0.4 mg tablet 1 tablet (CANCELED) 1 tablet, Oral, DAILY, First dose on Tue05/07/13 at 2100, Until Discontinued 0841 (Given - Provider: Zoe Galeas RN) 09 (Given - Provider: Shira Hess RN) 0820 (Given - Provider: Kristi Reina RN) OXYcodone (oxyCONTIN) CR tablet 10 mg 10 mg, Oral, EVERY 12 HOURS SCHEDULED (2 times per day), First dose on Tue05/08/13 at 0900, 6 doses, Last dose on Tue05/10/13 at 2100 0841 (Given - Provider: Zoe Galeas RN)204 (Given - Provider: Beth Buenrostro RN) 09 (Given - Provider: Shira Hess RN)2100 (Given - Provider: Ale Bolaños, YURI) OXYcodone (oxyCONTIN) CR tablet 10 mg (CANCELED) 10 mg, Oral, EVERY 12 HOURS SCHEDULED (2 times per day), First dose on Tue05/11/13 at 1015, Until Discontinued 1015 (Given - Provider: Kristi Reina, YURI) polyethylene glycol (MIRALAX) packet 17 g 17 g, Oral, 2 TIMES DAILY, First dose on Tue05/07/13 at 2100, Until Discontinued, Administer if needed per patient's routine or if no bowel movement within 48 hours, Routine 0841 (Given - Provider: Zoe Galeas RN)2042 (Given - Provider: Beth Buenrostro RN) 09 (Given - Provider: Shira Hess RN)2042 (Given - Provider: Ale Bolaños, YURI) 08 (Given - Provider: Kristi Reina, YURI) senna-docusate (PERICOLACE) 8.6-50 mg per tablet 1-4 tablet 1-4 tablet, Oral, 2 TIMES DAILY, First dose on Tue05/07/13 at 2100, Until Discontinued, Start with 1 tablet or liquid equivalent orally twice daily and titrate up to achieve: 1. One bowel movement at least every 48 hours, AND 2. Without straining, Routine 0841 (Given - Provider: Zoe Galeas RN)2042 (Given - Provider: Beth Buenrostro RN) 09 (Given - Provider: Shira Hess RN)2042 (Given - Provider: Ale Bolaños, YURI) 08 (Given - Provider: Kristi Reina, YURI) sodium chloride 0.9 % flush 5 mL (CANCELED) 5 mL, Intravenous, EVERY 12 HOURS, First dose on Tue05/07/13 at 2000, Until Discontinued 08 (Given - Provider: Zoe Galeas RN)2042 (Given - Provider: Beth Buenrotsro RN) 08 (Not Given - Provider: Shira Hess RN - Reason: Patient not available)1999 (Given - Provider: Ale Bolaños, YURI) 09 (Not Given - Provider: Kristi Reina RN - Reason: Order parameters not met) tamsulosin (FLOMAX) capsule 0.4 mg (COMPLETED) 0.4 mg, Oral, ONCE, 1 dose, On Tue05/10/13 at 1300, Routine 1406 (Given - Provider: Jus Austin RN - Comment: Given when arrived from pharmacy) tamsulosin (FLOMAX) capsule 0.4 mg 0.4 mg, Oral, DAILY, First dose on Tue05/11/13 at 0900, Until Discontinued, Routine 0822 (Given - Provider: Kristi Reina, YURI) warfarin (COUMADIN) tablet 5 mg 5 mg, Oral, ONCE, 1 dose, On Tue05/08/13 at 1700, Routine warfarin (COUMADIN) tablet 5 mg (COMPLETED) 5 mg, Oral, ONCE, 1 dose, On Tue05/09/13 at 1700, Routine 1712 (Given - Provider: Zoe Galeas, YURI) warfarin (COUMADIN) tablet 7.5 mg (COMPLETED) 7.5 mg, Oral, ONCE, 1 dose, On Tue05/10/13 at 1700, Routine 1700 (Given - Provider: Eddie Grimes, YURI) warfarin (COUMADIN) tablet 7.5 mg 7.5 mg, Oral, ONCE, 1 dose, On Tue05/11/13 at 1700, Routine PRN Medication Order 05/09/2013 05/10/2013 05/11/2013 bisacodyl (DULCOLAX) suppository 10 mg 10 mg, Rectal, DAILY PRN, Starting on Tue05/07/13 at 1932, Until Tue05/11/13 at 1243, Constipation, Administer if needed per patient's routine or if no bowel movement within 48 hours, Routine calcium carbonate (TUMS) chewable tablet 1,000 mg (CANCELED) 1,000 mg, Oral, EVERY 6 HOURS PRN, Starting on Tue05/10/13 at 1605, Until Tue05/11/13 at 1243, Heartburn, Routine 1614 (Given - Provider: Eddie Grimes RN) HYDROmorphone (DILAUDID) tablet 2-6 mg 2-6 mg, Oral, EVERY 3 HOURS PRN, Starting on Tue05/08/13 at 0037, Until Tue05/11/13 at 1243, Pain, Routine 0210 (Given - Provider: Nini Alex RN)0540 (Given - Provider: Nini Alex RN)0841 (Given - Provider: Zoe Galeas RN)1138 (Given - Provider: Zoe Galeas, YURI)1436 (Given - Provider: Zoe Galeas, YURI)1832 (Given - Provider: Zoe Galeas RN)2244 (Given - Provider: Beth Buenrostro, YURI) 0225 (Given - Provider: Beth Buenrostro, YURI)0602 (Given - Provider: Beth Buenrostro, YURI)1034 (Given - Provider: Shira Hess RN)1721 (Given - Provider: Eddie Grimes RN)2345 (Given - Provider: Ale Bolaños, YURI) 0419 (Given - Provider: Ale Bolaños, YURI)0822 (Given - Provider: Kristi eRina RN) sodium phosphates (FLEET) 19-7 gram/118 mL rectal enema 1 Bottle 1 Bottle, Rectal, ONCE PRN, 1 dose, Starting on Jory 05/10/13 at 1629, Until 05/11/13 at 1243, Constipation, Routine documented in this encounter Care Teams Director Check Relationship Specialty Start Date End Date Shaheen Taylor MD PCP - General 04/13/13 11/03/22 documented as of this encounter
--- OUTSIDE RECORDS SUMMARY | 2024-06-18 00:51 | XMS_ITS | Encounter Summary ---
Author Organization [facility] [place] [address] Care Team Providers Care Detacker Name Role Phone José, Shaun ABBOTT Primary Care Provider Encounter Details Date Type Department Care Team (Late st Contact Info) Description 05/13/2010 11:40 AM EST [place] [address] Arsen Arvizu PA [facility] [place] [address] Discharge Disposition: Home Social History Tobacco Use [...] EST Office Visit Neurosurgery at [facility] [address] [place] [phone] Riley Parisi MD [address] [place] [address] Canelo Hodgson PA [address] [place] [address] documented as of this encounter Visit Diagnoses Not on filedocumented in this encounter Care Teams Detacker Relationship Specialty Start Date End Date Shaun Kumar DO [address] [place] [address] PCP - General 04/07/10 04/12/13 documented as of this encounter
--- OUTSIDE RECORDS SUMMARY | 2024-06-18 00:51 | XMS_ITS | Encounter Summary ---
[place] [address] Care Team Providers Care Occupational Rehabilitation Aide Name Role Phone Josr Rangel MD Primary Care Provider Unavailab le Encounter Details Date Type Department Care Team (Late st Contact Info) Description 05/13/2013 Anti-Coag Telephone [place] [phone] Tata Cox MD Social History Tobacco Use Types Packs/Day Years [...] as of this encounter Progress Notes * Tata Cox MD - 05/13/2013 12:03 PM EST Coumadin flow sheet: Date Notes INR Coumadin dose (mg) 05/07 day of operation - 5 05/08 POD 1 1.0 5 05/09 POD 2 1.2 5 05/10 POD 3 1.2 Lovenox 40 + 7.5 05/11 D/C POD 4 1.2 Lovenox 40 (given) + 7.5 due at 5 pm INR 1.3 yesterday 05/12 INR 1.7 today 05/13 Taking 10mg coumadin, no lovenox Instructed them to continue coumadin 10mg, no lovenox INR will be rechecked tomorrow documented in this encounter Plan of Treatment Upcoming Encounters Date Type Department Care Team (Late st Contact Info) Description 06/21/2024 11:15 AM EST Office Visit Neurosurgery at [facility] [address] [place] [address] Riley Parisi MD [address] [facility] [place] [address] Canelo Hodgson PA [address] [facility] [place] [address] documented as of this encounter Visit Diagnoses Not on filedocumented in this encounter Care Teams Occupational Rehabilitation Aide Relationship Specialty Start Date End Date Josr Rangel MD PCP - General 04/13/13 11/03/22 documented as of this encounter
--- OUTSIDE RECORDS SUMMARY | 2024-06-18 00:51 | XMS_ITS | Encounter Summary ---
[place] [address] Care Team Providers Care Cuff Setter Name Role Phone Josr Rangel MD Primary Care Provider Unavailab le Encounter Details Date Type Department Care Team (Latest Contact Info) Description 05/03/2013 9:40 AM EST Clinical [place] [phone] Arthritis of knee Social History Tobacco Use [...] Taken Comments Blood Pressure - - Pulse 80 05/03/2013 9:37 AM EST Temperature - - Respiratory Rate - - Oxygen Saturation 99% 05/03/2013 9:37 AM EST Inhaled Oxygen Concentration - - Weight 102.1 kg (225 lb) 05/03/2013 9:37 AM EST Height 180.3 cm (5' 11) 05/03/2013 9:37 AM EST Body Mass Index 31.38 05/03/2013 9:37 AM EST documented in this encounter Progress Notes * Sebastian Mendiola, RN - 05/03/2013 9:47 AM EST PAT questionnaire reviewed with patient while in pre-admission testing. Pre- operative teaching folder reviewed with patient ~ expresses good understanding of all information reviewed. Pt had and did well with general anesthesia here eight years ago with his other knee. Blood work, T&S, urine and EKG today for OR with Carlos on 05/07. documented in this encounter Plan of Treatment Upcoming Encounters Date Type Department Care Team (Late st Contact Info) Description 06/21/2024 11:15 AM EST Office Visit Neurosurgery at [facility] [address] [place] [address] Riley Parisi MD [address] [facility] [place] [address] Canelo Hodgson PA [address] [facility] [place] [address] documented as of this encounter Procedures Procedure Name Priority Date/Time Associated Diagnosis Comments EKG 12-LEAD Routine 05/03/2013 10:10 AM EST Arthritis of knee documented in this encounter Results * EKG 12 Lead (05/03/2013 10:10 AM EST) Ventricular rate 68 BPM MUSE SYSTEM Atrial Rate 68 BPM MUSE SYSTEM P-R Interval 150 ms MUSE SYSTEM QRS Duration 92 ms MUSE SYSTEM Q-T Interval 370 ms MUSE SYSTEM QTC Calculated (Bezet) 393 ms MUSE SYSTEM Calculated P [place] 54 degrees MUSE SYSTEM Calculated R [place] 56 degrees MUSE SYSTEM Calculated T [place] 38 degrees MUSE SYSTEM INTERPRETATION Normal sinus rhythm Normal ECG When compared with ECG of 25-MAR-2005 12:55, No significant change was found Confirmed by MD Ginny, Miky ([id number]) on 05/03/2013 2:55:22 PM MUSE SYSTEM 05/03/2013 10:1 0 AM EST 05/03/2013 2:55 PM EST Davey Gonzalez MD ECG ORDERABLES MUSE SYSTEM documented in this encounter Visit Diagnoses Diagnosis Arthritis of knee Unspecified arthropathy, lower leg documented in this encounter Care Teams Cuff Setter Relationship Specialty Start Date End Date Josr Rangel MD PCP - General 04/13/13 11/03/22 documented as of this encounter
--- OUTSIDE RECORDS SUMMARY | 2024-06-18 00:51 | XMS_ITS | Encounter Summary ---
[place] [address] Care Team Providers Care Phosphoric Acid Supervisor Name Role Phone Josr Rangel MD Primary Care Provider Unavailab le Reason for Visit * Reason Onset Date Comments Questions 04/23/2013 Encounter Details Date Type Department Care Team (Late st Contact Info) Description 04/23/2013 Telephone [place] [address] Davey Gonzalez MD [facility] DR [place] [address] Questions Social History Tobacco Use Types Packs/Day [...] Telephone Encounter - Jennifer March RN - 04/23/2013 8:25 AM EST Phone call to Josr to discuss wart removal. No answer at this time. Message left requesting call back. * Telephone Encounter - Buffy Huang - 04/23/2013 8:18 AM EST Patient is having a RIGHT TKA on 05.[address] Gonzalez and seeing his PCP on 04/26 for H&P AND to have a wart removed from left hand. He wants to know if he can still do this or should he cancel the wart removal. Thanks. Please call patient back at work [phone] and it is okay to leave a detailed message if he doesn't pick up worker. documented in this encounter Plan of Treatment Upcoming Encounters Date Type Department Care Team (Late st Contact Info) Description 06/21/2024 11:15 AM EST Office Visit Neurosurgery at [facility] [address] [place] [address] Riley Parisi MD [facility] [place] [address] Canelo Hodgson PA [facility] [place] [address] documented as of this encounter Visit Diagnoses Not on filedocumented in this encounter Care Teams Phosphoric Acid Supervisor Relationship Specialty Start Date End Date Josr Rangel MD PCP - General 04/13/13 11/03/22 documented as of this encounter
--- OUTSIDE RECORDS SUMMARY | 2024-06-18 00:51 | XMS_ITS | Encounter Summary ---
[place] [address] Care Team Providers Care Coil Winding Machines Set Up Mechanic Name Role Phone Josr Rangel MD Primary Care Provider Unavailab le Encounter Details Date Type Department Care Team (Late st Contact Info) Description 05/07/2013 3:47 PM EST Anesthesia Event [place] [address] Aryan Jenkins MD [facility] [place] [address] Sandy Balderas MD Anesthesia Record Procedure Summary Procedure Name Responsible Anesthesiologist Anesthesia Start Time Anesthesia Stop Time TOTAL KNEE ARTHROPLASTY (WRVU 19.6) (Right: Knee) Aryan Jenkins MD 05/07/13 1547 05/07/13 1729 Events Date Time Event Comment 05/07/2013 1451 1547 Start 1550 AN Verify 1551 An Start Data 1605 IV Start #18 right hand placed by PRESS ASSISTANT 1606 Anesthesia Ready 1616 An Tourn Inflated 275 mmHg o n right leg. Timeout done. 1655 An Tourn Deflated TTT 39' 1657 Handoff The patient's c rojas was reviewed. The current anestetic course as well as the anesthetic plans were also reviewed. 1722 an stop data 1729 Handoff JCM Handoff end orsed to RN @ Bedside. Oxygen/Monitors established. VSS/HD stable/Baseline.Natural A/W without distress. Breathing pattern easy and efficient. Conversing,Actions appropriate.No abnormal events throughout this Phase of Care. The patient's chart was reviewed. The current anestetic course as well as the anesthetic plans were also reviewed. 1729 Stop Handoff endorse ment & care assumption to receiving medical professional complete. Meds Name Total Midazolam 5 mg lidocaine IV 30 mg propofol 50 mg propofol INF 434.7 mg ceFAZolin (ANCEF) 2g in dextrose 5% 50 m L 2 g PHENYLephrine 160 mcg lactated ringers infusion 1,000 mL 0 mL * Agents Name O2 N2O O2 Auxiliary Flowmeter 1 * Blood No blood administrations on file. Lines, Drains, and Airways Type Details Placement Removal Urethral Catheter 05/07/13; indwelling double lumen catheter; 100% silicone; 16; inserted (using sterile technique); 1 (inserted to hub, urine seen before balloon inflated); drainage bag to dependent drainage; 05/08/13; 0642 05/07/13 0000 by Vahe Head RN 05/08/13 0642 by Beth Buenrostro RN Incision 05/07/13; knee; 12/15 02/04 (LDA cleanup utility RA#[id number]); 1715 (LDA cleanup utility RA#[id number]) 05/07/13 0000 by Vahe Head RN 01/11/22 1715 by Melissa Portillo Drain/Device Site 05/07/13; Right; kne e; autotransfusion system (3/16th inch drain connected to constavac); 05/08/13; 0559 05/07/13 0000 by Vahe Head RN 05/08/13 0559 by Mara Art, YURI (RETIRED) Peripheral IV Line - Single Lumen 05/07/13; 1442; 05/11/13; 0730 05/07/13 1442 by Stephanie Levin CRNA 05/11/13 0730 by Lora Reina, RN (RETIRED) Peripheral IV Line - Single Lumen 05/07/13; 1605; 05/09/13; 0940 05/07/13 1605 by Stephanie Levin PRESS ASSISTANT 05/09/13 0940 by Sedrick Lara (RETIRED) Non-Surgical Airway Nasopharyngeal Size: 34 Fr; Removal Date: 05/08/13 05/07/13 1610 by Stephanie Levin CRNA 05/08/13 0000 by Zoe Galeas RN documented in this encounter Social History Tobacco Use Types Packs/Day Years [...] on file documented as of this encounter OR Notes * Anesthesia Postprocedure Evaluation - Aryan Jenkins MD - 05/07/2013 5:47 PM EST Patient: Josr Bojorquez Sr. Procedure(s) Performed: Procedure(s): @TOTAL KNEE ARTHROPLASTY MODIFIER STABILIZED ROTATING PLATFORM DEPUY Actual Anesthetic: spinal, regional Patient location: PACU Post-op pain: Adequate analgesia Post-op nausea: no nausea or vomiting Last Vitals: Filed Vitals: 05/07/13 1730 BP: 102/60 Pulse: 74 Temp: Resp: 16 Post-op cardiovascular and respiratory status: is stable Level of consciousness: awake, alert and oriented Complications: no apparent complications and tolerated the procedure well Fluid Status: normal * Anesthesia Procedure Notes - Stephanie Levin CRNA - 05/07/2013 2:52 PM EST Associated Order(s): ANESTHESIA BLOCK; ANE NEURAXIAL UPDATED Procedure: Anesthesia Block Block: Post-op Pain Control, femoral nerve block Start time: 05/07/2013 2:45 PM End time: 05/07/2013 2:52 PM This patient was greeted in the block room and the risks and benefits of the anesthetic block were reviewed. The risks of infection, bleeding, local anesthetic toxicity, and nerve injury were discussed. Specifically, the approximate risk of nerve injury (05/2999-05/4999) including neuropathy, loss of sensation and motor function, whether permanent or temporary, was discussed as well as the fact that post-surgical nerve injury can be unrelated to the actual injection and may be related to intra-operative issues such as positioning and tourniquet usage. The anesthetic consent was obtained. The timeout was performed prior to procedure start. Standard ASA monitors were applied. Indication/Prep Position: supine Prep: alcohol, chlorhexidine and patient draped Laterality: right Ultrasound Guidance: live and in-plane Skin Medication lidocaine 1% 3 ml Injection Injection technique:single-shot Needle Length: 5 cm Gauge: 22 Needle Type: K-[id number]-vjofw Medication injection made incrementally with aspirations. Nerve infiltration solution through a needle Other, see note 30 mL Additional Notes 0.35% Ropivicaine with 2mg Decadron Performed by: Cole Supervising Attending/Fellow: Kendell ~~~~~~~~~~~~~~~~~~~~~~~~~~~~~~~~~~~~~~~~~~~~~~~~~~~~~~~~~~~~ Procedure: Neuraxial Block Primary Anesthetic Type: Spinal The patient was greeted; the risks and benefits were reviewed. The anesthetic consent was obtained.The medical history and chart were reviewed. The timeout was performed. Start time: 05/07/2013 3:48 PM End time: 05/07/2013 3:58 PM Patient Location: Operating Room Patient Prep Position: Sitting Prep: Hand Hygiene, Hat, Mask, Sterile Gloves, Povidone-Iodine and Patient Draped Injection technique: single-shot Skin Anesthetic Lidocaine 1% and Other - add comment below Procedure Technique Level of needle insertion: L3-4 Needle approach: midline Needle Type: Sprotte Gauge: 25 Needle length: 3.5 in Number of attempts: 1 Bolus medication Epinephrine 1:200,000 Intrathecal Injection The patient received the following medication/s as an intrathecal injection: Bupivacaine 0.75% w dextrose 2 ml Events/Notes Events: None Performed by: Stephanie Levin CRNA Supervising Attending/Fellow: Dr. Sandy Balderas ~~~~~~~~~~~~~~~~~~~~~~~~~~~~~~~~~~~~~~~~~~~~~~~~~~~~~~~~~~~~ * Anesthesia Preprocedure Evaluation - Sandy Balderas MD - 05/07/2013 2:13 PM EST Images from the original note were not included. Pre-Anesthesia Evaluation for: Josr Bojorquez Sr. a 63 y.o. male. Procedure(s): @TOTAL KNEE ARTHROPLASTY MODIFIER STABILIZED ROTATING PLATFORM DEPUY Patient Active Problem List Diagnosis ??? Osteoarthritis of knee ??? Obesity, unspecified ??? Other and unspecified hyperlipidemia ??? Asymptomatic varicose veins Right greater saphenous Phlebitis Stasis ulcer ??? S/P knee replacement SURGERY DATE: 04/29/2005 Davey Gonzalez M.D. Proposed Procedure: Left total knee arthroplasty. Summary of Components: 1. DePuy PFC Sigma knee system, nonporous cruciate substituting femoral component, size 5, left. 2. DePuy cross link stabilized polyethylene insert, 3 x 10 mm. 3. Modular tibial tray, size 5, DePuy. 4. Oval dome three peg patella, size 38 mm. No past medical history on file. Past Surgical History Procedure Date ??? Created by interface ARTHROSCOPY KNEE,MENISCECTOMY SINGLE WITH SHAVING / LEFT/MEDIAL MENISCUS/MENISCECTOMY Procedure Date: 09/24/2004 ??? Created by interface TOTAL KNEE ARTHROPLASTY / LEFT/STAB.ROTATING PLATFORM/ANTIBIOTIC CEMENT Procedure Date: 04/29/2005 History Substance Use Topics ??? Smoking status: Former Smoker -- 2.0 packs/day for 10 years Types: Cigarettes ??? Smokeless tobacco: Never Used Comment: QUIT 35 YEARS AGO ??? Alcohol Use: No History Drug Use No No Known Allergies Medications: MAR and/or home medications have been reviewed. Physical Exam: There were no vitals filed for this visit. There is no height or weight on file to calculate BMI. Airway Assessment: Mallampati: II TM distance: >3 FB Neck ROM: full Cardiovascular Assessment: Rhythm: regular Rate: normal Pulmonary Assessment: breath sounds clear to auscultation Dental Assessment: Misc Assessment: Anesthesia Plan: ASA 2 spinal and regional, with a(n) intravenous induction 63 yo M, here for Right TKA. Patient reports having an excellent experience with a spinal and a femoral nerve block 8 years ago.Would prefer the same. Discussed R/B/A to spinal and femoral nerve block, including GA as back up plan. Questions sought and answered. Consent obtained and placed in chart. Region - Other Informed Consent: Anesthetic plan and risks discussed with patient. Use of blood products discussed with patient whom consented to blood products. Plan discussed with PRESS ASSISTANT and attending. [facility] Assessment: documented in this encounter Miscellaneous Notes * Addendum Note - Ester Montano MD - 05/15/2013 1:42 PM EST * Addendum Note - Kojo Galvan - 05/08/2013 11:32 AM EST Addendum created 05/08/13 1132 by Kojo Galvan MD Modules edited:Inpatient Notes * Addendum Note - Dioni Diaz CRNA - 05/07/2013 6:12 PM EST * Addendum Note - Dioni Diaz CRNA - 05/07/2013 6:01 PM EST documented in this encounter Plan of Treatment Upcoming Encounters Date Type Department Care Team (Late st Contact Info) Description 06/21/2024 11:15 AM EST Office Visit Neurosurgery at [facility] [address] [place] [address] Riley Parisi MD [address] [place] [address] Canelo Hodgson PA [address] [facility] [place] [address] [phone] (work) documented as of this encounter Procedures Procedure Name Priority Date/Time Associated Diagnosis Comments ANESTHESIA BLOCK Routine 05/07/2013 4:39 PM EST documented in this encounter Results * ANE NEURAXIAL UPDATED (05/07/2013 4:39 PM EST) Narrative Stephanie Levin CRNA - 05/07/2013 4:39 PM EST Stephanie Levin CRNA ? 05/07/2013 ??4:39 PM Procedure: ??Anesthesia Block Block: Post-op Pain Control, femoral nerve block Start time: 05/07/2013 2:45 PM End time: 05/07/2013 2:52 PM This patient was greeted in the block room and the risks and benefits of the anesthetic block were reviewed. ??The risks of infection, bleeding, local anesthetic toxicity, and nerve injury were discussed. ??Specifically, the approximate risk of nerve injury (05/2999-05/4999) including neuropathy, loss of sensation and motor function, whether permanent or temporary, was discussed as well as the fact that post-surgical nerve injury can be unrelated to the actual injection and may be related to intra-operative issues such as positioning and tourniquet usage. ?? The anesthetic consent was obtained. The timeout was performed prior to procedure start. ??Standard ASA monitors were applied. Indication/Prep Position: supine Prep: alcohol, chlorhexidine and patient draped Laterality: right Ultrasound Guidance: live and in-plane Skin Medication lidocaine 1% 3 ml Injection Injection technique:single-shot Needle Length: 5 cm Gauge: 22 Needle Type: I-ssonm-zofcg Medication injection made incrementally with aspirations. Nerve infiltration solution through a needle Other, see note 30 mL Additional Notes 0.35% Ropivicaine with 2mg Decadron Performed by: ??C[place]i Supervising Attending/Fellow: ??Rdz ~~~~~~~~~~~~~~~~~~~~~~~~~~~~~~~~~~~~~~~~~~~~~~~~~~~~~~~~~~~~ Procedure: ?? Neuraxial Block Primary Anesthetic Type: Spinal The patient was greeted; the risks and benefits were reviewed. ?? The anesthetic consent was obtained. ??The medical history and chart were reviewed. ??The timeout was performed. Start time: 05/07/2013 3:48 PM End time: 05/07/2013 3:58 PM Patient Location: Operating Room Patient Prep Position: Sitting Prep: Hand Hygiene, Hat, Mask, Sterile Gloves, Povidone-Iodine and Patient Draped Injection technique: single-shot Skin Anesthetic Lidocaine 1% and Other - add comment below ?? Procedure Technique Level of needle insertion: L3-4 Needle approach: midline Needle Type: Sprotte Gauge: 25 Needle length: 3.5 in Number of attempts: 1 Bolus medication Epinephrine ??1:200,000 Intrathecal Injection The patient received the following medication/s as an intrathecal injection: Bupivacaine 0.75% w dextrose 2 ml Events/Notes Events: ??None Performed by: ??Stephanie Levin CRNA Supervising Attending/Fellow: ??Dr. Sandy Balderas ~~~~~~~~~~~~~~~~~~~~~~~~~~~~~~~~~~~~~~~~~~~~~~~~~~~~~~~~~~~~ Procedure Note Stephanie Levin CRNA - 05/07/2013 2:52 PM EST Procedure: Anesthesia Block Block: Post-op Pain Control, femoral nerve block Start time: 05/07/2013 2:45 PM End time: 05/07/2013 2:52 PM This patient was greeted in the block room and the risks and benefits ofthe anesthetic block were reviewed. The risks of infection, bleeding,local anesthetic toxicity, and nerve injury were discussed. Specifically,the approximate risk of nerve injury (05/2999-05/4999) including neuropathy,loss of sensation and motor function, whether permanent or temporary, wasdiscussed as well as the fact that post- surgical nerve injury can beunrelated to the actual injection and may be related to intra-operativeissues such as positioning and tourniquet usage. The anesthetic consentwas obtained. The timeout was performed prior to procedure start.Standard ASA monitors were applied. Indication/Prep Position: supine Prep: alcohol, chlorhexidine and patient draped Laterality: right Ultrasound Guidance: live and in-plane Skin Medication lidocaine 1% 3 ml Injection Injection technique:single-shot Needle Length: 5 cm Gauge: 22 Needle Type: E-gmfmt-viogh Medication injection made incrementally with aspirations. Nerve infiltration solution through a needle Other, see note 30 mL Additional Notes 0.35% Ropivicaine with 2mg Decadron Performed by: Cole Supervising Attending/Fellow: Kendell ~~~~~~~~~~~~~~~~~~~~~~~~~~~~~~~~~~~~~~~~~~~~~~~~~~~~~~~~~~~~ Procedure: Neuraxial Block Primary Anesthetic Type: Spinal The patient was greeted; the risks and benefits were reviewed. Theanesthetic consent was obtained. The medical history and chart werereviewed. The timeout was performed. Start time: 05/07/2013 3:48 PM End time: 05/07/2013 3:58 PM Patient Location: Operating Room Patient Prep Position: Sitting Prep: Hand Hygiene, Hat, Mask, Sterile Gloves, Povidone-Iodine and PatientDraped Injection technique: single-shot Skin Anesthetic Lidocaine 1% and Other - add comment below Procedure Technique Level of needle insertion: L3-4 Needle approach: midline Needle Type: Sprotte Gauge: 25 Needle length: 3.5 in Number of attempts: 1 Bolus medication Epinephrine 1:200,000 Intrathecal Injection The patient received the following medication/s as an intrathecalinjection: Bupivacaine 0.75% w dextrose 2 ml Events/Notes Events: None Performed by: Stephanie Levin CRNA Supervising Attending/Fellow: Dr. Sandy Balderas ~~~~~~~~~~~~~~~~~~~~~~~~~~~~~~~~~~~~~~~~~~~~~~~~~~~~~~~~~~~~ Stephanie Levin CRNA [facility] * Anesthesia Block (05/07/2013 4:39 PM EST) Stephanie Benavides CRNA - 05/07/2013 4:39 PM EST Stephanie Levin CRNA ? 05/07/2013 ??4:39 PM Procedure: ??Anesthesia Block Block: Post-op Pain Control, femoral nerve block Start time: 05/07/2013 2:45 PM End time: 05/07/2013 2:52 PM This patient was greeted in the block room and the risks and benefits of the anesthetic block were reviewed. ??The risks of infection, bleeding, local anesthetic toxicity, and nerve injury were discussed. ??Specifically, the approximate risk of nerve injury (05/2999-05/4999) including neuropathy, loss of sensation and motor function, whether permanent or temporary, was discussed as well as the fact that post-surgical nerve injury can be unrelated to the actual injection and may be related to intra-operative issues such as positioning and tourniquet usage. ?? The anesthetic consent was obtained. The timeout was performed prior to procedure start. ??Standard ASA monitors were applied. Indication/Prep Position: supine Prep: alcohol, chlorhexidine and patient draped Laterality: right Ultrasound Guidance: live and in-plane Skin Medication lidocaine 1% 3 ml Injection Injection technique:single-shot Needle Length: 5 cm Gauge: 22 Needle Type: O-kvbfe-uzvte Medication injection made incrementally with aspirations. Nerve infiltration solution through a needle Other, see note 30 mL Additional Notes 0.35% Ropivicaine with 2mg Decadron Performed by: ??Cole Supervising Attending/Fellow: ??Rdz ~~~~~~~~~~~~~~~~~~~~~~~~~~~~~~~~~~~~~~~~~~~~~~~~~~~~~~~~~~~~ Procedure: ?? Neuraxial Block Primary Anesthetic Type: Spinal The patient was greeted; the risks and benefits were reviewed. ?? The anesthetic consent was obtained. ??The medical history and chart were reviewed. ??The timeout was performed. Start time: 05/07/2013 3:48 PM End time: 05/07/2013 3:58 PM Patient Location: Operating Room Patient Prep Position: Sitting Prep: Hand Hygiene, Hat, Mask, Sterile Gloves, Povidone-Iodine and Patient Draped Injection technique: single-shot Skin Anesthetic Lidocaine 1% and Other - add comment below ?? Procedure Technique Level of needle insertion: L3-4 Needle approach: midline Needle Type: Sprotte Gauge: 25 Needle length: 3.5 in Number of attempts: 1 Bolus medication Epinephrine ??1:200,000 Intrathecal Injection The patient received the following medication/s as an intrathecal injection: Bupivacaine 0.75% w dextrose 2 ml Events/Notes Events: ??None Performed by: ??Stephanie Levin CRNA Supervising Attending/Fellow: ??Dr. Sandy Balderas ~~~~~~~~~~~~~~~~~~~~~~~~~~~~~~~~~~~~~~~~~~~~~~~~~~~~~~~~~~~~ Procedure Note Stephanie Levin CRNA - 05/07/2013 2:52 PM EST Procedure: Anesthesia Block Block: Post-op Pain Control, femoral nerve block Start time: 05/07/2013 2:45 PM End time: 05/07/2013 2:52 PM This patient was greeted in the block room and the risks and benefits ofthe anesthetic block were reviewed. The risks of infection, bleeding,local anesthetic toxicity, and nerve injury were discussed. Specifically,the approximate risk of nerve injury (05/2999-05/4999) including neuropathy,loss of sensation and motor function, whether permanent or temporary, wasdiscussed as well as the fact that post- surgical nerve injury can beunrelated to the actual injection and may be related to intra-operativeissues such as positioning and tourniquet usage. The anesthetic consentwas obtained. The timeout was performed prior to procedure start.Standard ASA monitors were applied. Indication/Prep Position: supine Prep: alcohol, chlorhexidine and patient draped Laterality: right Ultrasound Guidance: live and in-plane Skin Medication lidocaine 1% 3 ml Injection Injection technique:single-shot Needle Length: 5 cm Gauge: 22 Needle Type: D-sezml-npceu Medication injection made incrementally with aspirations. Nerve infiltration solution through a needle Other, see note 30 mL Additional Notes 0.35% Ropivicaine with 2mg Decadron Performed by: Cole Supervising Attending/Fellow: Kendell ~~~~~~~~~~~~~~~~~~~~~~~~~~~~~~~~~~~~~~~~~~~~~~~~~~~~~~~~~~~~ Procedure: Neuraxial Block Primary Anesthetic Type: Spinal The patient was greeted; the risks and benefits were reviewed. Theanesthetic consent was obtained. The medical history and chart werereviewed. The timeout was performed. Start time: 05/07/2013 3:48 PM End time: 05/07/2013 3:58 PM Patient Location: Operating Room Patient Prep Position: Sitting Prep: Hand Hygiene, Hat, Mask, Sterile Gloves, Povidone-Iodine and PatientDraped Injection technique: single-shot Skin Anesthetic Lidocaine 1% and Other - add comment below Procedure Technique Level of needle insertion: L3-4 Needle approach: midline Needle Type: Sprotte Gauge: 25 Needle length: 3.5 in Number of attempts: 1 Bolus medication Epinephrine 1:200,000 Intrathecal Injection The patient received the following medication/s as an intrathecalinjection: Bupivacaine 0.75% w dextrose 2 ml Events/Notes Events: None Performed by: Stephanie Levin CRNA Supervising Attending/Fellow: Dr. Sandy Balderas ~~~~~~~~~~~~~~~~~~~~~~~~~~~~~~~~~~~~~~~~~~~~~~~~~~~~~~~~~~~~ Kojo Soliz MD [employer] [facility] documented in this encounter Visit Diagnoses Not on filedocumented in this encounter Administered Medications Inactive Administered Medications - up to 3 most recent administrations Medication Order MAR Action Action Date Dose Rate Site ceFAZolin (ANCEF) 2g in dextrose 5% 50 mL 2 g, Intravenous, ONCE, 1 dose, On Tue05/07/13 at 1400, To be administered upon arrival to the OR within one hour prior to incision., Day of Surgery (Day of Procedure), Indication for (Active or Suspected): Prophylaxis Given 05/07/2013 4:05 PM EST 2 g lactated ringers infusion 1,000 mL 1,000 mL, at 100 mL/hr, Intravenous, CONTINUOUS, Starting on Tue05/07/13 at 1400, Until Tue05/07/13 at 1926, Day of Surgery (Day of Procedure) New Bag 05/07/2013 4:30 PM EST mL New Bag 05/07/2013 3:01 PM EST mL lidocaine (PF) (XYLOCAINE) 100 mg/5 mL (2 %) injection PRN, Starting on Tue05/07/13 at 1600, Until Tue05/07/13 at 1729, Anesthesia Intra-op, Routine Given 05/07/2013 4:00 PM EST 30 mg midazolam (VERSED) injection PRN, Starting on Tue05/07/13 at 1547, Until Tue05/07/13 at 1729, Sleep, Anesthesia Intra-op, Routine Given 05/07/2013 3:52 PM EST 1 mg Given 05/07/2013 3:50 PM EST 2 mg Given 05/07/2013 3:47 PM EST 2 mg PHENYLephrine HCl in NS (PF) (EZ-SYNEPHRINE) 0.8 mg/10 mL (80 mcg/mL) injection Syrg PRN, Starting on Tue05/07/13 at 1657, Until Tue05/07/13 at 1729, Anesthesia Intra-op, Routine Given 05/07/2013 5:10 PM EST 80 mcg Given 05/07/2013 4:57 PM EST 80 mcg propofol (DIPRIVAN) 10 mg/mL bolus injection (Anesthesia) PRN, Starting on Tue05/07/13 at 1604, Until Tue05/07/13 at 1729, Anesthesia Intra-op Given 05/07/2013 4:08 PM EST 30 mg Given 05/07/2013 4:04 PM EST 20 mg propofol (DIPRIVAN) infusion CONTINUOUS PRN, Starting on Tue05/07/13 at 1610, Until Tue05/07/13 at 1729, Anesthesia Intra-op, Routine Rate/Dose Change 05/07/2013 5:07 PM EST 50 mcg/kg/min 29 mL/hr Rate/Dose Change 05/07/2013 4:45 PM EST 75 mcg/kg/min 43.5 mL/hr Rate/Dose Change 05/07/2013 4:19 PM EST 50 mcg/kg/min 29 m L/hr documented in this encounter Care Teams Coil Winding Machines Set Up Mechanic Relationship Specialty Start Date End Date Josr Rangel MD PCP - General 04/13/13 11/03/22 documented as of this encounter
--- OUTSIDE RECORDS SUMMARY | 2024-06-18 00:51 | XMS_ITS | Encounter Summary ---
[place] [address] Care Team Providers Care Assembler Knife Name Role Phone Josr Rangel MD Primary Care Provider Unavailab le Encounter Details Date Type Department Care Team (Late st Contact Info) Description 05/14/2013 Anti-Coag Telephone [place] [id number] Jennifer March, RN Arthritis of knee Social [...] Progress Notes * Jennifer March RN - 05/14/2013 2:28 PM EST Anticoagulation Therapy Nurse Visit Josr Bojorquez Sr. 1950 Dr[address] Gonzalez Indication: DVT Prophylaxis S/P Joint Replacement Duration of Treatment: 28 days ends: June 03, 2013 Therapeutic Range: 2.0-3.0 INR: 1.3 Drawn by: [facility] Patient presents with no signs of bleeding [...] EST Office Visit Neurosurgery at [facility] [address] [place] [address] Riley Parisi MD [address] [facility] [place] [address] Canelo Hodgson PA [address] [facility] [place] [address] documented as of this encounter Procedures Procedure Name Priority Date/Time Associated Diagnosis Comments EXTERNAL LAB RESULTS Routine 05/14/2013 documented in this encounter Results * (ABNORMAL) External Lab Results (05/14/2013) INR, POC 1.3(Boring Machine Operator Production al Lab) 0.9 - 1.1 Comment:[facility] h 05/14/2013 Historical Provider CHEMISTRY ORDERAB LES documented in this encounter Visit Diagnoses Diagnosis Arthritis of knee Unspecified arthropathy, lower leg documented in this encounter Care Teams Assembler Knife Relationship Specialty Start Date End Date Josr Rangel MD PCP - General 04/13/13 11/03/22 documented as of this encounter
--- OUTSIDE RECORDS SUMMARY | 2024-06-18 00:51 | XMS_ITS | Encounter Summary ---
Author Organization Formerly [facility] [place] [address] Care Team Providers Care Caustic Loader Name Role Phone José, Shaun ABBOTT Primary Care Provider Encounter Details Date Type Department Care Team (Late st Contact Info) Description 03/14/2013 [place] [address] Davey Gonzalez MD [facility] [place] [address] Knee pain (Primary Dx) Social History Tobacco Use Types [...] 11:15 AM EST Office Visit Neurosurgery at [facility] [address] [place] [phone] Riley Parisi [place] [address] Canelo Hodgson PA [address] [place] [address] documented as of this encounter Results * XR JOINT TEAM ALIGNMENT AP LAT SCHUSS SKYLINE (04/13/2013 10:24 AM EST) Anatomical Region Laterality Modality N/A Radiographic Nithya ging 04/13/2013 10:2 4 AM EST Narrative 04/13/2013 10:37 AM EST Examination JOINT TEAM STANDING ALIGNMENT AP LAT SCHUSS SKYLINE/RIGHT Clinical History RIGHT KNEE PAIN Comparison Radiographs 05/10/2012, 05/13/2010. ??Standing alignment 05/28/2005. Technique Separate images of the pelvis, knees and feet were acquired in the AP projection with the patient standing. In addition to routine views of the knee, these images were stitched together to form a composite image of the pelvis and legs allowing for evaluation of lower extremity alignment in the weight bearing position. Findings Standing alignment: There is slight medial deviation of the weightbearing axis on the left, and marked medial deviation of the right weightbearing axis by approximately 5.5 cm, progressed compared to prior study. Knees: ??There has been no change in the appearance of the left knee arthroplasty. No periprosthetic fracture or lucency. Tricompartmental osteoarthritis of the right knee is again noted. Severe degenerative changes of the medial compartment of the right knee, with near complete loss of joint space, large marginal osteophytes and subchondral sclerosis is similar to prior study. ??There is a small right knee effusion. Impression ? 1. Severe osteoarthritis of the medial compartment of the right knee. ? 2. No change or complication of the left knee arthroplasty. Procedure Note Nixon Plunkett MD - 04/13/2013 Examination JOINT TEAM STANDING ALIGNMENT AP LAT SCHUSS SKYLINE/RIGHT Clinical History RIGHT KNEE PAIN Comparison Radiographs 05/10/2012, 05/13/2010. Standing alignment 05/28/2005. Technique Separate images of the pelvis, knees and feet were acquired in the AP projection with the patient standing. In addition to routine views of theknee, these images were stitched together to form a composite image of thepelvis and legs allowing for evaluation of lower extremity alignment in the weightbearing position. Findings Standing alignment: There is slight medial deviation of the weightbearingaxis on the left, and marked medial deviation of the right weightbearing axisby approximately 5.5 cm, progressed compared to prior study. Knees: There has been no change in the appearance of the left knee arthroplasty. No periprosthetic fracture or lucency. Tricompartmental osteoarthritis of the right knee is again noted. Severe degenerativechanges of the medial compartment of the right knee, with near complete loss of joint space, large marginal osteophytes and subchondral sclerosis is similar toprior study. There is a small right knee effusion. Impression 1. Severe osteoarthritis of the medial compartment of the rightknee. 2. No change or complication of the left knee arthroplasty. Davey Gonzalez MD IMG DX ORDERABLES documented in this encounter Visit Diagnoses Diagnosis Knee pain- Primary Pain in joint, lower leg Knee pain Pain in joint, lower leg documented in this encounter Care Teams Caustic Loader Relationship Specialty Start Date End Date Shaun Kumar DO [address] [place] [address] PCP - General 04/07/10 04/12/13 documented as of this encounter
--- OUTSIDE RECORDS SUMMARY | 2024-06-18 00:51 | XMS_ITS | Encounter Summary ---
Author Organization [facility] [place] [address] Care Team Providers Care Aircraft Mechanic Armament Name Role Phone Shaheen Rangel MD Primary Care Provider Unavailab le Reason for Visit * Reason Comments Right Knee Pain knee pain Encounter Details Date Type Department Care Team (Latest Contact Info) Description 05/03/2013 10:40 AM EST Office [place] [address] Davey Fairchild MD [facility] [place] [address] Osteoarthritis of knee (Primary Dx); Arthritis of knee Discharge Disposition: Home Social History Tobacco Use [...] Sign Reading Time Taken Comments Blood Pressure 122/82 05/03/2013 10:43 AM EST Pulse 73 05/03/2013 10:43 AM EST Temperature - - Respiratory Rate - - Oxygen Saturation - - Inhaled Oxygen Concentration - - Weight 102.1 kg (225 lb) 05/03/2013 10:43 AM EST Height 180.3 cm (5' 11) 05/03/2013 10:43 AM EST Body Mass Index 31.38 05/03/2013 10:43 AM EST documented in this encounter Progress Notes * Davey Fairchild MD - 05/03/2013 10:45 AM EST HISTORY OF PRESENT ILLNESS: Very pleasant 63 y.o. year-old male with severe osteoarthritis of the knee. Given the severe nature of the arthritis and disability, aswell as the failure of conservative treatment measures, the patient has decided to proceed with right total knee arthroplasty. Please refer to my previous note for the full history. The patient reports that the pain has not changed and has actually gotten a bit worse. He reviewed the shared decision making video and is confident in the decision to go forward with total joint arthroplasty. He attended the [facility] Preop Education class and has received the TKA binder and reviewed the contents. PHYSICAL EXAMINATION: Exam is previously documented in my note and is unchanged. Preop History and Physical completed by PCP. RELEVANT LAB STUDIES: No results found for this basename: WBC, HGB, HCT, PLATELET, CREATININE, BUN, NA, K, CRP, SEDRATE, HGBA1C, INR CrCl is unknown because no creatinine reading has been taken. Urine: Culture pending type and screen done. DVT Risk Assessment Screening (TKR Doc flowsheet )reviewed: - Hx of DVT/ PE ? [x} Yes - Hypercoagulable State? [x} No - Genetic predisposition for DVT/PE? [x} No - Hx. Of Bleeding disorder?[x} No - Hx of GIB? [x} No - Hx of Hemorrhagic stroke? [x} No - Currently on lifelong coumadin?[x} No - Unable to tolerate coumadin? [x} No ASSESSMENT/PLAN: A 63 y.o. year-old male who presents for preoperative appointment today. The risksand benefits of the procedure were outlined in detail including but not limited to bleeding ,infection ,blood clots, scar formation, patellar dislocation, persistent pain, stiffness, failure, wear or loosening of components, fracture, nerve palsy, injury to blood vessel, skin numbness, anesthetic risks or medical complications and need for additional surgery. I used total knee implants to demonstrate how we perform the procedure and all questions were answered. I did review the history and physical today which says the patient is cleared for surgery and has no specific recommendations for further testing. I reviewed the labs and there were no issues with those. Informed consent was signed in the clinic today. We discussed DNR status and the patient is a full code. We will plan to use coumadin for 28 days postoperatively for DVT prophylaxis. We discussed the possible discharge scenarios including going home versus needing to go to a rehab facility. We will make that determination after seeing how well mob ilization is progressing. documented in this encounter Plan of Treatment Upcoming Encounters Date Type Department Care Team (Late st Contact Info) Description 06/21/2024 11:15 AM EST Office Visit Neurosurgery at [facility] [address] [place] [address] Riley Parisi MD [address] [facility] [place] [address] Canelo Hodgson PA [address] [facility] [place] [address] documented as of this encounter Procedures Procedure Name Priority Date/Time Associated Diagnosis Comments URINALYSIS WITH REFLEX CULTURE Routine 05/03/2013 10:38 AM EST Arthritis of knee URINE CULTURE Routine 05/03/2013 10:38 AM EST Arthritis of knee DIFFERENTIAL, AUTOMATED Routine 05/03/2013 10:19 AM EST TYPE AND SCREEN, SDP (FUTURE SURGERY, [facility] SAME DAY PROGRAM ONLY) Routine 05/03/2013 10:19 AM EST Arthritis of knee ABO/RH TYPING Routine 05/03/2013 10:19 AM EST Arthritis of knee PROTHROMBIN TIME Routine 05/03/2013 10:1 9 AM EST Osteoarthritis of knee CBC (WITH DIFF) Routine 05/03/2013 10:19 AM EST Arthritis of knee ANTIBODY SCREEN Routine 05/03/2013 10:19 AM EST Arthritis of knee documented in this encounter Results * Urine culture Clean Catch Urine (05/03/2013 10:38 AM EST) Urine Culture ? Patient Name: CHRIS [place]ONT, SHAHEEN Leblanc ? Ordered By: DAVEY FAIRCHILD ? MR#: [id number] ?LOC: ??3D ? /Sex: ?? 2 (63 years), ? Male ? PROCEDURE: Urine Culture ?SOURCE: U CC ? COLLECTED: 05/03/2013 10:38 ? STARTED: 05/03/2013 10:55 ? FINAL REPORT ? Final Report ? Verified: 07:29 ? No growth (Less than 1,000 cfu/ml). ? ____ ROSEMARY GUERRA Urine specimen obtained by clean catch procedure (specimen) 05/03/2013 10:38 AM EST 05/03/2013 10:55 AM EST Narrative Resulting Agency Comment Spec In Lab Davey Fairchild MD MICROBIOLOGY - GENER AL ORDERABLES [facility] * Urinalysis with microscopic (05/03/2013 10:38 AM [...] Urine Dipstick Clear Clear CERNER MILLENNIUM Specific [place] Urine Automated 1.006 1.002 - 1.030 CERNER MILLENNIUM Color, Urine Dipstick Colorless Yellow CERNER MILLENNIUM RBC, Urine Not Present 0 - 3 CERNER MILLENNIUM WBC, Urine 1 0 - 3 /HPF CERNER MILLENNIUM Urine specimen (specimen) 05/03/2013 10:38 AM EST 05/03/2013 10:45 AM EST Narrative Resulting Agency Comment Spec In Lab Davey Fairchild MD URINE ORDERABLES CERNER MILLENNIUM * Differential, Automated (05/03/2013 10:19 AM EST) Neutrophil % 65.8 34.0 - 71.0 % CERNER MILLENNIUM Neutrophil Absolute 5.93 1.50 - 6.30 x10(3)/mcL CERNER MILLENNIUM Lymph % 22.2 19.0 - 53.0 % CERNER MILLENNIUM Lymphocytes Abs 2.0 1.0 - 3.6 x10(3)/mcL CERNER MILLENNIUM Monocyte % 7.6 4.0 - 13.0 % CERNER MILLENNIUM Monocyte Abs 0.7 0.2 - 1.0 x10(3)/mcL CERNER MILLENNIUM Eos % 3.9 0.0 - 7.0 % CERNER MILLENNIUM Eosinophils Abs 0.4 0.0 - 0.5 x10(3)/[facility] CERNER MILLENNIUM Basophil % 0.3 0.0 - 2.0 % CERNER MILLENNIUM Baso Absolute 0.0 0.0 - 0.2 x10(3)/mcL CERNER MILLENNIUM Immature Gran % 0.20 0.00 - 0.66 % CERNER MILLENNIUM Comment: Immature granulocytes(IG's)percentage and absolute count will include metamyelocytes, myelocytes, and promyelocytes. Blood smears from CBCs yielding IG's will be scanned manually for concordance. If this scan disagrees with the automated IG or if promyelocytes are noted, a manual differential will be performed. Immature Gran Absolute 0.02 0.00 - 0.05 x10(3)/mcL ROSEMARY ANGUIANOENNIUM Blood specimen (specimen) 05/03/2013 10:19 AM EST 05/03/2013 10:44 AM EST Davey Fairchild MD HEMATOLOGY ORDERABLE S Performing Organization Address [facility] de Phone Number ROSEMARY APPIAHIUM * Antibody screen (05/03/2013 10:19 AM EST) Ab Screen Interp Negative ROSEMARY APPIAHIUM Expires at [id number] on: [id number] ROSEMARY APPIAHIUM Blood specimen (specimen) 05/03/2013 10:19 AM EST 05/03/2013 10:41 AM EST Narrative Resulting Agency Comment Spec In Lab Davey Fairchild MD BLOOD BANK LAB ORDER HELGA Performing Organization Address City/[facility] de Phone Number ROSEMARY APPIAHIUM * ABO/Rh Typing (05/03/2013 10:19 AM EST) ABORH Type O Pos ROSEMARY APPIAHIUM Blood specimen (specimen) 05/03/2013 10:19 AM EST 05/03/2013 10:41 AM EST Narrative Resulting Agency Comment Spec In Lab Davey Fairchild MD BLOOD BANK LAB ORDER HELGA Performing Organization Address City/[facility] de Phone Number ROSEMARY APPIAHIUM * CBC (with Diff) (05/03/2013 10:19 AM [...] Lab Davey Fairchild MD HEMATOLOGY ORDERABLE S ROSEMARY GUERRA * Prothrombin Time (05/03/2013 10:19 AM EST) Prothrombin Time 12.5 12.0 - 15.0 sec CERNER MILLENNIUM Comment: [facility] Transfusion Committee Guidelines: INR less than 2.0, PTT less than OR equal to 43.5 seconds, or Fibrinogen greater than or equal to 100 mg/dl indicate adequate procoagulant activity for hemostasis in patients without underlying bleeding disorders. International Normalization Ratio 0.9 0.9 - 1.1 CERNER MILLENNIUM Blood specimen (specimen) 05/03/2013 10:19 AM EST 05/03/2013 10:44 AM EST Narrative Resulting Agency Comment Spec In Lab Davey Fairchild MD HEMATOLOGY ORDERABLE S ROSEMARY GUERRA documented in this encounter Visit Diagnoses Diagnosis Osteoarthritis of knee- Primary Osteoarthrosis, unspecified whether generalized or localized, lower leg Arthritis of knee Unspecified arthropathy, lower leg documented in this encounter Administered Medications Inactive Administered Medications - up to 3 most recent administrations Medication Order MAR Action Action Date Dose Rate Site mupirocin (BACTROBAN) 2 % ointment Topical, 2 TIMES DAILY, First dose on Tue05/02/13 at 0900, Until Discontinued, Apply pea sized amount to inside of each nostril as directed by provider. Given 05/03/2013 11:23 AM EST documented in this encounter Care Teams Aircraft Mechanic Armament Relationship Specialty Start Date End Date Shaheen Rangel MD PCP - General 04/13/13 11/03/22 documented as of this encounter
--- OUTSIDE RECORDS SUMMARY | 2024-06-18 00:51 | XMS_ITS | Encounter Summary ---
[place] [address] Care Team Providers Care Robot Operator Name Role Phone José, Shaun ABBOTT Primary Care Provider Reason for Visit * Reason Comments Aftercare Of [facility] S/P LEFT TKA 5 Encounter Details Date Type Department Care Team (Late st Contact Info) Description 05/10/2012 9:20 AM EST Follow-[place] [phone] Mark Rosa PA [facility] [place] [address] S/P knee replacement (Primary Dx) Discharge Disposition: Home Social History [...] Sign Reading Time Taken Comments Blood Pressure 134/84 05/10/2012 9:04 AM EST Pulse 68 05/10/2012 9:04 AM EST Temperature - - Respiratory Rate - - Oxygen Saturation - - Inhaled Oxygen Concentration - - Weight 98.9 kg (218 lb) 05/10/2012 9:04 AM EST Height 180.3 cm (5' 11) 05/10/2012 9:04 AM EST Body Mass Index 30.4 05/10/2012 9:04 AM EST documented in this encounter Progress Notes * Mark Rosa PA - 05/10/2012 9:15 AM EST SURGERY DATE: 04/29/2005 Davey Gonzalez M.D. Actual Procedure: Left total knee arthroplasty. Summary of Components: 1. DePuy PFC Sigma knee system, nonporous cruciate substituting femoral component, size 5, left. 2. DePuy cross link stabilized polyethylene insert, 3 x 10 mm. 3. Modular tibial tray, size 5, DePuy. 4. Oval dome three peg patella, size 38 mm. HPI: 62 yo male returns 7 years from his knee replacement. He continues to do very well. He has no pain in the knee. There is no swelling. He does have some crepitice over the past several months without injury. His right knee is increasingly limited due to OA. IN addition to pain the knee is unstable especially on uneven or challenging terrain. His health has been stable aside from the knees. Nofevers or chills. No SOB or chest pain Physical Exam: 62 yo male; ambulatory without assist. Marked varus deformity to the right knee. No effusion to either knee. ROM from 0-125 on both sides. There is pseudolaxity with MCL testing on theright but firm endpoint. No pain or laxity with varus and valgus stress on the left. Calves soft adn nontender; diffuse varicosities on the right side. X-rays: Unchanged left total knee arthroplasty. A well corticated ossification surrounding the lateral tibial tray is unchanged since 2006. No radiolucencies. The right knee osteoarthropathy has progressed with complete loss of right medial joint space, subchondral sclerosis, cystic change and small osteophytes. There is a small right knee effusion and prepatellar soft tissue swelling in addition to a small intraarticular body located along the anterior joint line. Assessment: S/P Left TKA; right knee OA Plan: His TKA looks very good. I gave him some exercises to help with patella stabilization. In regard to his right knee, I gave him a medial compartment offloader brace to stabilize his knee. We discussed indications for further evaluation, indications for TKA were discsussed. We.ll see him again as a rotary for his TKA or sooner for the right side. documented in this encounter Plan of Treatment Upcoming Encounters Date Type Department Care Team (Late st Contact Info) Description 06/21/2024 11:15 AM EST Office Visit Neurosurgery at [facility] [address] [place] [address] Riley Parisi MD [address] [facility] [place] [address] Canelo Hodgson PA [address] [facility] [place] [address] documented as of this encounter Visit Diagnoses Diagnosis S/P knee replacement- Primary Knee joint replacement by other means documented in this encounter Care Teams Robot Operator Relationship Specialty Start Date End Date Shaun Kumar DO [address] [place] [address] PCP - General 04/07/10 04/12/13 documented as of this encounter
--- OUTSIDE RECORDS SUMMARY | 2024-06-18 00:51 | XMS_ITS | Encounter Summary ---
Author Organization [facility] [place] [address] Care Team Providers Care Bezel Cutter Name Role Phone JoséShaun aleman Primary Care Provider [phone] Encounter Details Date Type Department Care Team (Late st Contact Info) Description 04/04/2012 Orders Only [place] [address] Davey Gonzalez MD [facility] [place] [address] H/O total knee replacement (Primary Dx) Social History Tobacco Use Types [...] EST Office Visit Neurosurgery at [facility] [address] [place] [phone] Riley Parisi MD [address] [place] [address] Canelo Hodgson PA [address] [place] [address] documented as of this encounter Visit Diagnoses Diagnosis H/O total knee replacement- Primary Knee joint replacement by other means documented in this encounter Care Teams Bezel Cutter Relationship Specialty Start Date End Date Shaun Kumar DO [address] [place] [address] PCP - General 04/07/10 04/12/13 documented as of this encounter
--- OUTSIDE RECORDS SUMMARY | 2024-06-18 00:51 | XMS_ITS | Encounter Summary ---
[place] [address] Care Team Providers Care Fnps Name Role Phone Josr Rangel MD Primary Care Provider Unavailab le Encounter Details Date Type Department Care Team (Late st Contact Info) Description 05/03/2013 Notes [place] [address] Keshav Noriega, DRAW IN HAND Social History Tobacco Use Types Packs/Day Years [...] as of this encounter Progress Notes * Keshav Noriega - 05/03/2013 4:07 PM EST Office of Care Management KESHAV NORIEGA, Chace Speicalist pager [phone] A: Referral to Office of Care Management for assistance with completion of Advance Directives. RS met with patient and significant other. Assessed pt, who presented as ready and willing to complete the forms. Reviewed forms and all questions and concerns answered to pt's satisfaction. Assisted with completion of Advance Directives. P: Advance Directives to be scanned into EMR. Patient's plan post operatively is to return home. [place] for insurance and has asked me to contact them for prior approval for [facility]. He also states that he has all needed DME. No additional RS intervention expected. documented in this encounter Plan of Treatment Upcoming Encounters Date Type Department Care Team (Late st Contact Info) Description 06/21/2024 11:15 AM EST Office Visit Neurosurgery at [facility] 10 [place] [address] Riley Parisi MD [address] [facility] [place] [address] Canelo Hodgson PA [address] [facility] [place] [address] documented as of this encounter Visit Diagnoses Not on filedocumented in this encounter Care Teams Fnps Relationship Specialty Start Date End Date Josr Rangel MD PCP - General 04/13/13 11/03/22 documented as of this encounter
--- OUTSIDE RECORDS SUMMARY | 2024-06-18 00:51 | XMS_ITS | Encounter Summary ---
[place] [address] Care Team Providers Care [employer] Principal Name Role Phone Shaun Kumar DO Primary Care Provider Encounter Details Date Type Department Care Team (Late st Contact Info) Description 05/13/2010 11:00 AM EST Procedure visit [place] [address] Social History Tobacco Use Types Packs/Day Years [...] 11:15 AM EST Office Visit Neurosurgery at [facility] [address] [place] [phone] Riley Parisi MD [address] [facility] [place] [address] Canelo Hodgson PA [address] [facility] [place] [place] [address] documented as of this encounter Visit Diagnoses Not on filedocumented in this encounter Care Teams [employer] Principal Relationship Specialty Start Date End Date Shaun Kumar DO [address] [place] [address] PCP - General 04/07/10 04/12/13 documented as of this encounter
--- OUTSIDE RECORDS SUMMARY | 2024-06-18 00:51 | XMS_ITS | Encounter Summary ---
Author Organization [facility] [place] [address] Care Team Providers Care Crystal Mounter Name Role Phone José, Shaun ABBOTT Primary Care Provider Encounter Details Date Type Department Care Team (Latest Contact Info) Description 05/10/2012 8:25 AM EST - 05/10/2012 11:59 PM [facility] Hospital Encounter XRay at [address] [place] [id number] H/O total knee replacement Social History Tobacco Use Types Packs/Day Years [...] PO, Pre procedure 05/13/2010 aspirin 325 mg tablet 05/13/20102012 documented as of this encounter Plan of Treatment Upcoming Encounters Date Type Department Care Team (Late st Contact Info) Description 06/21/2024 11:15 AM EST Office Visit Neurosurgery at [facility] [address] [place] [address] Riley Parisi MD [address] [place] [address] Canelo Hodgson PA [address] [place] [address] documented as of this encounter Procedures Procedure Name Priority Date/Time Associated Diagnosis Comments XR KNEE AP AND LAT BILAT Routine 05/10/2012 8:39 AM EST Knee joint replacement by other means documented in this encounter Results * XR knee bilateral1 or 2 view (05/10/2012 8:39 AM EST) Anatomical Region Laterality Modality Knee Bilateral Radiographic Nithya ging 05/10/2012 8:39 AM EST Narrative 05/10/2012 9:18 AM EST Examination KNEE BILATERAL 1 OR 2 VIEWS Clinical History S/P LT TKA 04/29/05; R knee pain per patient changed to bilateral knees per Carolyne Cardenas/Ortho nurse Comparison May 13, 2010 - 2006 Technique Findings Unchanged left total knee arthroplasty. ??A well corticated ossification surrounding the lateral tibial tray is unchanged since 2006. ??No radiolucencies. The right knee osteoarthropathy has progressed with complete loss of right medial joint space, subchondral sclerosis, cystic change and small osteophytes. ?? There is a small right knee effusion and prepatellar soft tissue swelling in addition to a small intraarticular body located along the anterior joint line. Impression ? 1. Unchanged left total knee arthroplasty. ? 2. Progression of right knee joint osteoarthropathy. Procedure Note Ashley Perry MD - 05/10/2012 Examination KNEE BILATERAL 1 OR 2 VIEWS Clinical History S/P LT TKA 04/29/05; R knee pain per patient changed to bilateral knees per Carolyne Cardenas/Ortho nurse Comparison May 13, 2010 - 2006 Technique Findings Unchanged left total knee arthroplasty. A well corticated ossification surrounding the lateral tibial tray is unchanged since 2006. No radiolucencies. The right knee osteoarthropathy has progressed with complete loss of right medial joint space, subchondral sclerosis, cystic change and smallosteophytes. There is a small right knee effusion and prepatellar soft tissue swellingin addition to a small intraarticular body located along the anterior jointline. Impression 1. Unchanged left total knee arthroplasty. 2. Progression of right knee joint osteoarthropathy. Davey Gonzalez MD IMG DX ORDERABLES documented in this encounter Visit Diagnoses Diagnosis H/O total knee replacement Knee joint replacement by other means documented in this encounter Care Teams Crystal Mounter Relationship Specialty Start Date End Date Shaun Kumar DO [address] [place] [address] [address] [place] [address] PCP - General 04/07/10 04/12/13 documented as of this encounter
--- OUTSIDE RECORDS SUMMARY | 2024-06-18 00:51 | XMS_ITS | Encounter Summary ---
Author Organization [facility] [place] [address] Care Team Providers Care Unix Analyst Name Role Phone José, Shaun ABBOTT Primary Care Provider [phone] Encounter Details Date Type Department Care Team (Late st Contact Info) Description 03/14/2013 Orders [place] [address] Davey Gonzalez MD [facility] [address] [facility] [address] Knee pain (Primary Dx) Social History Tobacco [...] at [facility] [address] [place] [phone] Riley Parisi MD [facility] [place] [address] Canelo Hodgson PA [address] [place] [address] documented as of this encounter Visit Diagnoses Diagnosis Knee pain- Primary Pain in joint, lower leg documented in this encounter Care Teams Unix Analyst Relationship Specialty Start Date End Date Shaun Kumar DO [address] [place] [address] PCP - General 04/07/10 04/12/13 documented as of this encounter
--- OUTSIDE RECORDS SUMMARY | 2024-06-18 00:51 | XMS_ITS | Encounter Summary ---
[place] [address] Care Team Providers Care Employment Attorney Name Role Phone Josr Rangel MD Primary Care Provider Unavailab le Encounter Details Date Type Department Care Team (Late st Contact Info) Description 04/17/2013 Orders [place] [address] Jennifer March, RN Knee joint replacement by [...] Visit Neurosurgery at [facility] [address] [place] [phone] Riley Parisi MD [address] [place] [address] Canelo Hodgson PA [address] [place] [address] documented as of this encounter Visit Diagnoses Diagnosis Knee joint replacement by other means- Primary documented in this encounter Care Teams Employment Attorney Relationship Specialty Start Date End Date Josr Rangel MD PCP - General 04/13/13 11/03/22 documented as of this encounter
--- OUTSIDE RECORDS SUMMARY | 2024-06-18 00:51 | XMS_ITS | Encounter Summary ---
Author Organization Formerly [facility] [place] [address] Care Team Providers Care Molder Labels Name Role Phone Shaheen Taylor MD Primary Care Provider Unavailab le Reason for Referral * Consultation (Routine) - Closed by system - Referral Specialty Diagnoses / Procedures Referred By Sushil keith Referred To Contact Orthopaedic Surgery Diagnoses Arthritis of knee Mally Soares APRN [facility] [place] [address] Referral ID Status Reason Start Date Expiration Date Visits Requested Visits Authorized [id number] Closed by system - Referral Assume Subset of Care 3 11/07/2013 1 1 Encounter Details Date Type Department Care Team (Latest Contact Info) Description 05/07/2013 1:44 PM EST - 05/11/2013 10:40 AM EST Hospital Encounter [address] [place] [address] Eyad Gonzalez MD [facility] [place] [address] Arthritis of knee Discharge Disposition: Home with VNA Social History Tobacco Use Types Packs/Day Years [...] Discharge Instructions * Discharge Instructions* Mally Soares, STAFF COUNSEL - 05/11/2013 9:42 AM EST Activity: 1. [...] The INR should be reported to the [facility] Ortho clinic at [phone], and you will be informed of any [...] sennakot, to factilitate a bowel movement. An wehp-upz-utecmjb medication, miralax can also beused if needed [...] 1. You will have followup appointments at [facility] as indicated in Future Appointments and Orders. You will have an xray prior to those appointments so please come to Radiology, desk 3T, 1 hour BEFORE your appointment for those x-rays. 2. You have a follow-up appointment with your Primary Care Provider, Dr. Taylor ([phone]), on May 15 at 10:40 am. This [...] Lovenox. Your blood will be drawn on and you will be notified if you [...] are no further questions.Discharge instructions faxed to A. KRISTI REINA RN * Arsen Marroquin III, [...] intact Motor intact TA/GSC/EHL Recent Labs Basename 05/11/13 0323 05/10/1332005/09/13 0332 WBC -- 12.0* 14.5* HGB -- 10.9* 11.6* HCT -- 32.8* 34.6* PLATELET -- 162 170 PT 15.6* 15.6* 15.9* INR 1.2* 1.2* 1.2* PTT -- -- -- Recent Labs Basename 05/10/131 05/09/13 0332 NA 134* 135 K 4.0 4.0 [...] - 05/10/2013 5:30 PM EST Assumed care [phone]. 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 He can use [employer] and has no deductible, however, he will have a 12$ copay. Ref# [id number] * Eyad Gonzalez MD - 05/10/2013 6:18 [...] intact Motor intact TA/GSC/EHL Recent Labs Basename 05/10/1332005/09/13 03305/08/13326 WBC 12.0* 14.5* 14.8* HGB 10.9* 11.6* 12.8* HCT 32.8* 34.6* 38.4* PLATELET 162 170 208 PT 15.6* 15.9* 13.8 INR 1.2* 1.2* 1.0 PTT -- -- -- Recent Labs Basename 05/10/1332005/09/1333105/08/13326 NA 134* 135 137 K 4.0 4.0 [...] Amarjit Bar - 05/09/2013 3:39 PM EST [facility] Encounter Note Patient Name: Shaheen Bojorquez Sr. : [id number] MR#: [id number] Admit Date: 05/07/2013 1:44 PM Hospital Day 2 days Narrative:Visited to introduce and assess acceptance of [facility] services. Pt was awake, alert, oriented and in chair and family was there. Assessment:Family coping positively with stresses of illness/hospitalization at this time. Pt says that he is feeling better and pt family asked for prayers and blessings. Intervention and Outcome:pt has family family care and support. Pt has purpose of life and wants tolive with family. [facility] services accepted. Conversation to build trusting relationship. Provided prayer. Provided pastoral presence. Provided spiritual guidance. Provided supportive counseling. Provided jain/sacramental rite. Follow-up: Follow-up visit for continued assessment [...] pt leg into bed (will trial Leg certified vehicle fire investigator at next rx) Sit to stand: Pt [...] x 2) Cecelia Robertson PT, MSPT Pager [phone] Inpatient Physical Therapy Ralph Petit MD - 05/09/2013 6:31 AM EST Regional [...] sign off; please contact Regional Anesthesia Team ([phone]) for any unresolved sensory or motor deficits or bleeding or bruising at site of block. Thank you for this consultation. RALPH SAUNDERS MD Regional team pager [phone] LEY * Jerman Chinchilla - 05/09/2013 6:26 AM [...] -- Recent Labs Basename 05/09/13 0332 05/08/13 0327 NA 135 137 K 4.0 4.1 CL 100 102 CO2 25 BUN 14 16 CREATININE 0.97 1.02 GLUCOSE 134 151 CALCIUM 8.5 8.8 MAGNESIUM -- -- PHOS -- -- A/P: Shaheen Bojorquez . is a 63 y.o. male s/p Right [...] return of 825 ml of yellow urine. * Kojo Galvan - 05/08/2013 11:28 AM EST Regional Anesthesia Progress Note Date of Encounter: 05/08/2013 Provider: KOJO GALVAN MD Attending: Aryan Quick MD ID: Patient [...] to follow; please contact Regional Anesthesia Team ([phone]) for any unresolved sensory or motor deficits or bleeding or bruising at site of block. Thank you for this consultation. KOJO GALVAN MD Regional team pager [phone] * Pedro Santos RN - 05/08/2013 11:13 AM EST S: I have another knee that Dr Gonzalez did 8 yrs ago. O: Chart reviewed and met with pt and family. Pt is lying in bed in [facility]. Pt had R TKA yesterday by Dr Gonzalez. 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 Pt denies the need for in-pt rehab and feels he can manage at home with VNA. Pt requests [facility] for services.Pt will need PT/INR q M&TH, [...] to oxycontin + po dilaudid this AM. DC Bates. Mobilize today. Plan: Weightbearing: WBAT Anticoagulation:Coumadin [...] 3:19 PM EST Patient Name: Shaheen Bojorquez [facility] Patient Age: 63 y.o. Birthdate: 1950 Admit date: 05/07/2013 Attending Physician: Eyad Gonzalez MD See scanned document for pre-procedural H&P. documented in this encounter Procedure Notes * Provider, Scanning - 05/12/2013 10:01 AM [...] ARTHROPLASTY performed by Eyad Gonzalez MD at [facility] MAIN OR Social History: Pt lives in [...] minutes Total timed interventions: 0 minutes Pager: [phone] ISABELLA BERMEO OT 05/10/2013 Occupational Therapy Rehabilitation [...] function/service at home: Pt lives in 1 [place] home with 3 steps to enter the [...] bed Sit to stand: Pt transferred to [facility] with CGand verbal cues. Stand to sit: Pt transferred from [facility] with CG. Gait: Pt was unable to [...] 24 for evaluation Total timed treatment: 0 Juan Francisco Laura, SPT Pt seen and note written in conjunction with MOSES Koehler, PT Pager [phone] * Discharge Summary - Mally Soares, STAFF COUNSEL - 05/08/2013 8:11 AM EST Department of Orthopedic Medicine - Discharge Summary Patient Name: Shaheen Bojorquez Sr. Patient Age: 63 y.o. Birthdate: 1950 Admit date: 05/07/2013 Discharge date: 05/11/2013 Attending Physician: Eyad Gonzalez MD Discharge Diagnoses (Hospital Problems) and Secondary Diagnoses (Chronic Problems): Active Hospital Problems Diagnosis ??? Osteoarthritis of knee s/p TKA Gonzalez 05/07/13 ??? Urinary retention Resolved Hospital Problems [...] The INR should be reported to the [facility] Ortho clinic at [phone], and you will be informed of any [...] sennakot, to factilitate a bowel movement. An vgsd-xpm-mkecjbo medication, miralax can also beused if needed [...] 1. You will have followup appointments at [facility] as indicated in Future Appointments and Orders. You will have an xray prior to those appointments so please come to Radiology, desk 3T, 1 hour BEFORE your appointment for those x-rays. 2. You have a follow-up appointment with your Primary Care Provider, Dr. Taylor ([phone]), on Tuesday, May 15 at 10:40 am. This appointment is for evaluation/monitoring of your urinary output. You have enough Flomax to last until this appointment. Ask Dr. Taylor, if you should continue with this prescription. Future Appointments and Orders Future Appointments: Provider: Department: Dept Phone: Center: 06/14/2013 9:40 AM Eyad Gonzalez MD Orthopaedics [phone] None Joint Appt Health Question Three D Ortho Orthopaedics [phone] None Future Orders Please Complete By Expires Referral for Anticoagulation Monitoring [[id number] Custom] Process Instructions: If no progress note charted, please enter Clinical details in comments. Scheduling Instructions: Comments: Questions: Responses: Responsible Group [facility] ANTICOMARIAJOSE Reason for referral Coumadin, s/p Right TKA 05/07/2013 Risk Factors: Next due INR 05/11/2013 INR Goal 2.0-3.0 Target End Date 06/03/2013 Referral to Home Health [[id number] CPT(R)] Process Instructions: Scheduling Instructions: Comments: [facility] Health Care Agency [facility]. PHONE: [phone] FAX: [phone] DISCHARGE DOCUMENTATION FOR VNA SERVICES (INCLUDING THOSE PATIENTS WITH MEDICARE COVERAGE BEING DISCHARGED HOME WITH VNA SERVICES AND THOSE PATIENTS WITH MEDICARE COVERAGE WHO ARE BEING DISCHARGED HOME WITH HOSPICE SERVICES) Shaheen Bojorquez Sr. [address] [facility] [address] (home) [phone] (work) No relevant phone numbers on file. Hair Spinner: In discussion with the attending physician, it is certified that this patient is under their care and that they, or a nurse practitioner, clinical nurse specialist or physician's special education educational assistant who is working directly with them, had [...] for home health services. HOME HEALTH AGENCY: [facility] Home care orders for Total KneeArthroplasty: 1.RN: Draw PT/INR as follows: Draw INR on Tuesday, , Thereafter, PT/INR: every Tuesday and PT/INR results to be called and faxed as follows Tue-Tue Ortho anticoagulation (Coumadin) clinic @ [facility]: ; Sat/Sun: if the PT/INR is drawn on the weekend, call the results to the Orthopedic Resident on callat [phone] for Coumadin dose Point of care testing [...] this patient's PCP: SHAHEEN TAYLOR MD [address] [place] [phone] All A agencies which cover the area of patient's residence have been reviewed, either verbally dae writing, and patient/family have chosen the indicated home health care agency for home services. Questions: Responses: Agency name and contact information [facility] Patient location post discharge home What services are requested Registered Nurse Physical Therapy Start date Responsible MD post discharge contact info Primary Care Provider: SHAHEEN TAYLOR MD [phone] Dr. Gonzalez: Joints: [phone] After Hours: Call [phone] request to speak with the Orthopaedic Resident cinder block mason. Electronically Signed by: MALLY SOARES APRN 05/11/2013 [...] Gonzalez MD - 05/07/2013 5:17 PM EST [facility] Operative Note Patient Name: Shaheen Bojorquez Sr. : [id number] MR#: [id number] Case Date: 05/07/2013 Surgeon: Surgeon(s) and Role: [...] Implant Name Type Inv. Item Serial No. Academic Department Chair Lot No. LRB No. Used Action CEMENT,BNE,CMW 1,GNTA,40GM ([id number]) - [id number] IMPLANTS CEMENT,BNE,CMW 1,GNTA,40GM ([id number]) [employer] Mobile Phlebotomist - [facility] [id number] Right 1 Implanted CHAN,PFC,SGM,OVL,3PG,STD,38MM ([id number]) (AUTOREQ) - [id number] IMPLANTS CHAN,PFC,SGM,OVL,3PG,STD,38MM ([id number]) (AUTOREQ) [employer] Mobile Phlebotomist - [facility] [id number] Right 1 Implanted TRAY,TIB,LCS,MBT,CMNT,KEEL,SZ5 ([id number]) (AUTOREQ) - [id number] IMPLANTS TRAY,TIB,LCS,MBT,CMNT,KEEL,SZ5 ([id number]) (AUTOREQ) [employer] Mobile Phlebotomist - [facility] [id number] Right 1 Implanted INSER,PFC,SGM,RP,STAB,SZ5,10MM ([id number]) (AUTOREQ) - [id number] IMPLANTS INSER,PFC,SGM,RP,STAB,SZ5,10MM ([id number]) (AUTOREQ) [employer] Mobile Phlebotomist - [facility] [id number] Right 1 Implanted COMPO,SGM,FEM,PS,CMNT,LUG,R,5 ([id number]) (AUTOREQ) - [id number] IMPLANTS COMPO,SGM,FEM,PS,CMNT,LUG,R,5 ([id number]) (AUTOREQ) [employer] Mobile Phlebotomist - [facility] [id number] Right 1 Implanted INDICATIONS: The is a [...] tray was impacted into place and a Pigeon elevator was used to remove all overhanging cement. Similarly, the distal femoral component was impacted into place. Overhanging cement was removed using a Pigeon elevator. The 10mm rotating platform polyethylene was [...] sterile dressing was placed, followed by a fud-ni-agfdw Abdoul band and Cryo/Cuff. The patient was [...] Visit Neurosurgery at [facility] [address] [place] [address] Riley Parisi MD [address] [facility] [place] [address] Canelo Hodgson PA [address] [facility] [place] [address] Scheduled Referrals Name Type Priority Associated Diagnoses [...] 12.0 - 15.0 sec CERNER MILLENNIUM Comment: [facility] Transfusion Committee Guidelines: INR less than 2.0, PTT less than OR equal to 43.5 seconds, or Fibrinogen greater than or equal to 100 mg/dl indicate adequate procoagulant activity for hemostasis in patients without underlying bleeding disorders. International Normalization Ratio 1.2(H) 0.9 - 1.1 CERNER MILLENNIUM Blood specimen (specimen) 05/11/2013 3:23 AM EST [...] Absolute 0.03 0.00 - 0.05 x10(3)/mc L [facility] Blood specimen (specimen) 05/10/2013 3:21 AM EST 05/10/2013 3:35 AM EST Eyad Gonzalez MD HEMATOLOGY ORDERABLE S Performing Organization Address [facility] Co de Phone Number [facility] [employer] * (ABNORMAL) Prothrombin Time (05/10/2013 3:21 AM EST) Prothrombin Time 15.6(H) 12.0 - 15.0 sec [facility] MetconnexENNIUM Comment: [facility] Transfusion Committee Guidelines: INR less than 2.0, PTT less than OR equal to 43.5 seconds, or Fibrinogen greater than or equal to 100 mg/dl indicate adequate procoagulant activity for hemostasis in patients without underlying bleeding disorders. International Normalization Ratio 1.2(H) 0.9 - 1.1 [facility] Blood specimen (specimen) 05/10/2013 3:21 AM EST 05/10/2013 3:35 AM EST Narrative Resulting Agency Comment Spec In Lab Eyad Gonzalez MD HEMATOLOGY ORDERABLE S Performing Organization Address City/[facility] Co de Phone Number [facility] GUERRA * (ABNORMAL) Basic Metabolic Panel (non-fasting) (05/10/2013 3:21 AM EST) Glucose 119 60 - 199 mg/dL [facility] Comment:Diabetes: >=200 mg/d L plus symptoms Blood Urea Nitrogen 15 10 - 20 mg/dL [facility] Creatinine 1.05 0.80 - 1.50 mg/dL [facility] [employer]ENNIUM Comment: Please note that the pediatric reference intervals supplied above were not validated at [facility]. Results from pediatric patients should be interpreted [...] In Lab Eyad Gonzalez MD CHEMISTRY ORDERABLES ROSEMARY GUERRA * (ABNORMAL) CBC (with Diff) (05/10/2013 3:21 [...] Absolute 0.03 0.00 - 0.05 x10(3)/mc L [facility] Blood specimen (specimen) 05/09/2013 3:32 AM EST 05/09/2013 3:36 AM EST Eyad Gonzalez MD HEMATOLOGY ORDERABLE S Performing Organization Address [facility] Phone Number [facility] [employer] * (ABNORMAL) Prothrombin Time (05/09/2013 3:32 AM EST) Prothrombin Time 15.9(H) 12.0 - 15.0 sec [facility]ENNIUM Comment: [facility] Transfusion Committee Guidelines: INR less than 2.0, PTT less than OR equal to 43.5 seconds, or Fibrinogen greater than or equal to 100 mg/dl indicate adequate procoagulant activity for hemostasis in patients without underlying bleeding disorders. International Normalization Ratio 1.2(H) 0.9 - 1.1 [facility] Blood specimen (specimen) 05/09/2013 3:32 AM EST 05/09/2013 3:36 AM EST Narrative Resulting Agency Comment Spec In Lab Eyad Gonzalez MD HEMATOLOGY ORDERABLE S Performing Organization Address [facility] de Phone Number [facility] [employer] * Basic Metabolic Panel (non-fasting) (05/09/2013 3:32 AM EST) Glucose 134 60 - 199 mg/dL [facility] Comment:Diabetes: >=200 mg/d L plus symptoms Blood Urea Nitrogen 14 10 - 20 mg/dL [facility]UM Creatinine 0.97 0.80 - 1.50 mg/dL [facility] MILLENNIUM Comment: Please note that the pediatric reference intervals supplied above were not validated at [facility]. Results from pediatric patients should be interpreted [...] In Lab Eyad Gonzalez MD CHEMISTRY ORDERABLES CERCATRACHO APPIAHIUM * (ABNORMAL) CBC (with Diff) (05/09/2013 3:32 [...] Absolute 0.03 0.00 - 0.05 x10(3)/mc L [facility] Blood specimen (specimen) 05/08/2013 3:27 AM EST 05/08/2013 3:40 AM EST Eyad Gonzalez MD HEMATOLOGY ORDERABLE S Performing Organization Address [facility] Phone Number [facility] ANGUIANOHeadspaceATRIUM [facility] * Prothrombin Time (05/08/2013 3:27 AM EST) Prothrombin Time 13.8 12.0 - 15.0 sec [facility] MILLENNIUM Comment: [facility] Transfusion Committee Guidelines: INR less than 2.0, PTT less than OR equal to 43.5 seconds, or Fibrinogen greater than or equal to 100 mg/dl indicate adequate procoagulant activity for hemostasis in patients without underlying bleeding disorders. International Normalization Ratio 1.0 0.9 - 1.1 [facility] Blood specimen (specimen) 05/08/2013 3:27 AM EST 05/08/2013 3:40 AM EST Narrative Resulting Agency Comment Spec In Lab Eyad Gonzalez MD HEMATOLOGY ORDERABLE S Performing Organization Address [facility] de Phone Number [facility] GU[facility] * Basic Metabolic Panel (non-fasting) (05/08/2013 3:27 AM EST) Glucose 151 60 - 199 mg/dL [facility] MILLENNIUM Comment:Diabetes: >=200 mg/d L plus symptoms Blood Urea Nitrogen 16 10 - 20 mg/dL [facility] MILLENNIUM Creatinine 1.02 0.80 - 1.50 mg/dL [facility] MILLENNIUM Comment: Please note that the pediatric reference intervals supplied above were not validated at [facility]. Results from pediatric patients should be interpreted [...] In Lab Eyad Gonzalez MD CHEMISTRY ORDERABLES CERCATRACHO GUERRA * (ABNORMAL) CBC (with Diff) (05/08/2013 3:27 [...] PM EST 05/07/2013 4:54 PM EST Narrative CERNER MILLENNIUM - 05/07/2013 4:54 PM EST Specimen requisition ordered. ??Separate Pathology report to follow Eyad Gonzalez MD PATHOLOGY/CYTOLOGY O RDERABLES ROSEMARY ANGUIANOAND[facility] SANATORIUM * Surgical Pathology Report (05/07/2013 4:53 PM EST) Surgical Pathology Report ? [facility] ? Provider: ?? EYAD GONZALEZ ?? Pt. Name: ?? CHRIS DUMONT, SHAHEEN Leblanc ? Acc #: ?[id number] ?Pt. ? Col Date: ?? 05/07/2013 ?/Sex: ?1950,(63 years),Male ? Rec Date: ?? 05/07/2013 ?LOC: ?3WST ? SURGICAL PATHOLOGY ? ---Pathologic Diagnosis--- ? Articular bone and soft tissue consistent with osteoarthritis, right knee. ?Gross surgical pathology examination. ? CR-0 ? 05/07/13 ? EJR ? 05/08/13 Verified by: ? Jed DO, Ginger Valdes. ? Pathologist ? (Electronic Signature) ? The [...] 4:53 PM EST Eyad Gonzalez MD PATHOLOGY/CYTOLOGY Elvis BROWN ROSEMARY GUERRA documented in this encounter Visit Diagnoses Diagnosis Osteoarthritis of knee s/p TKA Ovid 05/07/13- Primary Osteoarthrosis, unspecified whether generalized or localized, lower leg Arthritis of knee Unspecified arthropathy, lower leg Urinary retention Retention of urine, unspecified documented in this encounter Administered Medications Inactive Administered Medications - up to 3 most recent administrations Medication Order MAR Action Action Date Dose Rate Site acetaminophen (TYLENOL) tablet 1,000 mg 1,000 mg, Oral, EVERY 8 HOURS SCHEDULED, First dose on Tue05/07/13 at 2200, Until Discontinued, Maximum dose of acetaminophen is 4000 mg from all sources in 24 hours., Routine Given 05/11/2013 6:54 AM EST 1,000 mg Given 05/10/2013 8:45 PM EST 1,000 mg Given 05/10/2013 2:07 PM EST 1,000 mg calcium carbonate (TUMS) chewable tablet 1,000 mg 1,000 mg, Oral, EVERY 6 HOURS PRN, Starting on Tue05/10/13 at 1605, Until Tue05/11/13 at 1243, Heartburn, Routine Given 05/10/2013 4:14 PM EST 1,000 mg ceFAZolin (ANCEF) 1g in dextrose 5% 50mL 1,000 mg (1 g), Intravenous, EVERY 8 HOURS, 3 doses, First dose on Tue05/07/13 at 1800, Last dose on Tue05/08/13 at 1000, Administer over 30 Minutes, For 3 doses postoperatively. Adjust to 8 hours from intraoperative dose., Indication for (Active or Suspected): Prophylaxis New Bag 05/08/2013 5:40 PM EST 1,000 mg 100 mL/ hr New Bag 05/08/2013 8:24 AM EST 1,000 mg 100 mL/hr New Bag 05/07/2013 11:59 PM EST 1,000 mg 100 mL/hr enoxaparin (LOVENOX) injection 40 mg 40 mg, Subcutaneous, ONCE, 1 dose, On Tue05/10/13 at 0930, Routine Given by Other 05/10/2013 10:33 AM EST 40 mg enoxaparin (LOVENOX) injection 40 mg 40 mg, Subcutaneous, ONCE, 1 dose, On Tue05/11/13 at 0900, Routine Given by Other 05/11/2013 8:21 AM EST 40 mg HYDROmorphone (DILAUDID) 1 mg/mL AUTO CAMP ATTENDANT 30 mL Intravenous, AUTO CAMP ATTENDANT ONLY, Starting on Tue05/07/13 at 1800, Until Tue05/08/13 at 0035 New Syringe/Cartridge 05/07/2013 6:00 PM EST HYDROmorphone (DILAUDID) 1 mg/mL AUTO CAMP ATTENDANT 30 mL Intravenous, AUTO CAMP ATTENDANT ONLY, Starting on Tue05/08/13 at 0100, Until Tue05/08/13 at 0542 Rate/Dose Change 05/08/2013 12:47 AM EST HYDROmorphone (DILAUDID) tablet 2-6 mg 2-6 mg, Oral, EVERY 3 HOURS PRN, Starting on Tue05/08/13 at 0037, Until Tue05/11/13 at 1243, Pain, Routine Given 05/11/2013 8:22 AM EST 4 mg Given 05/11/2013 4:19 AM EST 4 mg Given 05/10/2013 11:45 PM EST 4 mg lactated ringers 1,000 mL IV bolus Intravenous, ONCE, 1 dose, On Tue05/08/13 at 0945 Given 05/08/2013 9:56 AM EST lactated ringers infusion 1,000 mL 1,000 mL, at 100 mL/hr, Intravenous, CONTINUOUS, Starting on Tue05/07/13 at 1800, Until Tue05/10/13 at 1534 New Bag 05/08/2013 2:32 AM EST 1,000 mL s 100 mL/hr New Bag 05/07/2013 5:49 PM EST 1,000 mLs 100 mL/hr multivitamin Gjcu-Nl-SV-Min (THERAPEUTIC-M) 27-0.4 mg tablet 1 tablet 1 tablet, Oral, DAILY, First dose on Tue05/07/13 at 2100, Until Discontinued Given 05/11/2013 8:20 AM EST 1 table t Given 05/10/2013 9:05 AM EST 1 tablet Given 05/09/2013 8:41 AM EST 1 tablet ondansetron (ZOFRAN) injection 4 mg 4 mg, Intravenous, EVERY 8 HOURS PRN, Starting on Tue05/07/13 at 1932, Until Tue05/11/13 at 1243, Nausea, May repeat times one in 30 minutes if ineffective Given 05/08/2013 6:12 AM EST 4 mg OXYcodone (oxyCONTIN) CR tablet 10 mg 10 mg, Oral, EVERY 12 HOURS SCHEDULED (2 times per day), First dose on Tue05/08/13 at 0900, 6 doses, Last dose on Tue05/10/13 at 2100 Given 05/10/2013 9:00 PM EST 1 0 mg Given 05/10/2013 9:05 AM EST 10 mg Given 05/09/2013 8:42 PM EST 10 mg OXYcodone (oxyCONTIN) CR tablet 10 mg 10 mg, Oral, EVERY 12 HOURS SCHEDULED (2 times per day), First dose on Tue05/11/13 at 1015, Until Discontinued Given 05/11/2013 10:15 AM EST 10 mg OXYcodone (ROXICODONE) immediate release tablet 10 mg 10 mg, Oral, EVERY 4 HOURS PRN, Starting on Tue05/07/13 at 1932, Until Tue05/08/13 at 0034, Pain, moderate pain, For Moderate pain. Do not exceed 15 mg in 4 hours. If pain not relieved, call provider., Routine Given 05/07/2013 10:18 PM EST 10 mg polyethylene glycol (MIRALAX) packet 17 g 17 g, Oral, 2 TIMES DAILY, First dose on Tue05/07/13 at 2100, Until Discontinued, Administer if needed per patient's routine or if no bowel movement within 48 hours, Routine Given 05/11/2013 8:21 AM EST 17 g Given 05/10/2013 8:43 PM EST 17 g Given 05/10/2013 9:00 AM EST 17 g prochlorperazine (COMPAZINE) injection 10 mg 10 mg, Intravenous, EVERY 6 HOURS PRN, Starting on Tue05/08/13 at 0750, Until Tue05/11/13 at 1243, Nausea, Routine Given 05/08/2013 8:20 AM EST 10 mg scopolamine (TRANSDERM-SCOP) 1.5 mg patch 1 patch 1 patch, Transdermal, ONCE, 1 dose, On Tue05/08/13 at 1215, STAT Given 05/08/2013 12:43 PM EST 1 patch senna-docusate (PERICOLACE) 8.6-50 mg per tablet 1-4 tablet 1-4 tablet, Oral, 2 TIMES DAILY, First dose on Tue05/07/13 at 2100, Until Discontinued, Start with 1 tablet or liquid equivalent orally twice daily and titrate up to achieve: 1. One bowel movement at least every 48 hours, AND 2. Without straining, Routine Given 05/11/2013 8:21 AM EST 4 tablets Given 05/10/2013 8:43 PM EST 2 tablets Given 05/10/2013 9:05 AM EST 3 tablets sodium chloride 0.9 % flush 5 mL 5 mL, Intravenous, EVERY 12 HOURS, First dose on Tue05/07/13 at 2000, Until Discontinued Given 05/10/2013 8:00 PM EST 5 mLs Given 05/09/2013 8:43 PM EST 5 mLs Given 05/09/2013 8:00 AM EST 5 mLs tamsulosin (FLOMAX) capsule 0.4 mg 0.4 mg, Oral, ONCE, 1 dose, On Tue05/10/13 at 1300, Routine Given 05/10/2013 2:06 PM EST 0.4 mg tamsulosin (FLOMAX) capsule 0.4 mg 0.4 mg, Oral, DAILY, First dose on Tue05/11/13 at 0900, Until Discontinued, Routine Given 05/11/2013 8:22 AM EST 0.4 mg warfarin (COUMADIN) tablet 5 mg 5 mg, Oral, ONCE, 1 dose, On Tue05/07/13 at 2030, Routine Given 05/07/2013 10:16 PM EST 5 mg warfarin (COUMADIN) tablet 5 mg 5 mg, Oral, ONCE, 1 dose, On Tue05/08/13 at 1700, Routine Given 05/08/2013 4:31 PM EST 5 mg warfarin (COUMADIN) tablet 5 mg 5 mg, Oral, ONCE, 1 dose, On Tue05/09/13 at 1700, Routine Given 05/09/2013 5:12 PM EST 5 mg warfarin (COUMADIN) tablet 7.5 mg 7.5 mg, Oral, ONCE, 1 dose, On Tue05/10/13 at 1700, Routine Given 05/10/2013 5:00 PM EST 7.5 mg documented in this encounter Active and Recently [...] Zoe Galeas RN)2119 (Given - Provider: Beth Buenrostro RN) 0601 (Given - Provider: Beth Buenrostro RN)1407 (Given - Provider: Jus Austin, YURI)2045 (Given - Provider: Ale Bolaños, YURI) 0654 (Given - Provider: Ale Bolaños RN) enoxaparin (LOVENOX) injection 40 mg (COMPLETED) 40 mg, Subcutaneous, ONCE, 1 dose, On Tue05/10/13 at 0930, Routine 1033 (Given by Other - Provider: Shira Hess RN - Comment: pt self administered) enoxaparin (LOVENOX) injection 40 mg (COMPLETED) 40 mg, Subcutaneous, ONCE, 1 dose, On Tue05/11/13 at 0900, Routine 0821 (Given by Other - Provider: Kristi Reina RN) multivitamin Ador-Ua-DO-Min (THERAPEUTIC-M) 27-0.4 mg tablet 1 tablet (CANCELED) 1 tablet, Oral, DAILY, First dose on Tue05/07/13 at 2100, Until Discontinued 0841 (Given - Provider: Zoe Galeas RN) 0905 (Given - Provider: Shira Hess RN) 0820 (Given - Provider: Kristi Reina RN) OXYcodone (oxyCONTIN) CR tablet 10 mg 10 mg, Oral, EVERY 12 HOURS SCHEDULED (2 times per day), First dose on Tue05/08/13 at 0900, 6 doses, Last dose on Tue05/10/13 at 2100 0841 (Given - Provider: Zoe Galeas RN)2042 (Given - Provider: Beth Buenrostro RN) 09 (Given - Provider: Shira Hess RN)2100 (Given - Provider: Ale Bolaños RN) OXYcodone (oxyCONTIN) CR tablet 10 mg (CANCELED) [...] Zoe Galeas RN)2042 (Given - Provider: Beth Buenrostro, YURI) 09 (Given - Provider: Shira Hess RN)2042 (Given - Provider: Ale Bolaños, YURI) 08 (Given - Provider: Kristi Reina RN) sodium chloride 0.9 % flush 5 mL (CANCELED) 5 mL, Intravenous, EVERY 12 HOURS, First dose on Tue05/07/13 at 2000, Until Discontinued 08 (Given - Provider: Zoe Galeas RN)2042 (Given - Provider: Beth Buenrostro, YURI) 08 (Not Given - Provider: Shira Hess RN - Reason: Patient not available)1999 (Given - Provider: Ale Bolaños, YURI) 09 (Not Given - Provider: Kristi Reina RN - Reason: Order parameters not met) tamsulosin (FLOMAX) capsule 0.4 mg (COMPLETED) 0.4 mg, Oral, ONCE, 1 dose, On Jory 05/10/13 at 1300, Routine 1406 (Given - Provider: Jus Austin RN - Comment: Given when arrived from pharmacy) tamsulosin (FLOMAX) capsule 0.4 mg 0.4 mg, Oral, DAILY, First dose on Tue05/11/13 at 0900, Until Discontinued, Routine 0822 (Given - Provider: Kristi Reina RN) warfarin (COUMADIN) tablet 5 mg 5 mg, Oral, ONCE, 1 dose, On Tue05/08/13 at 1700, Routine warfarin (COUMADIN) tablet 5 mg (COMPLETED) 5 mg, Oral, ONCE, 1 dose, On Tue05/09/13 at 1700, Routine 1712 (Given - Provider: Zoe Galeas RN) warfarin (COUMADIN) tablet 7.5 mg (COMPLETED) 7.5 mg, Oral, ONCE, 1 dose, On Tue05/10/13 at 1700, Routine 1700 (Given - Provider: Eddie Grimes RN) warfarin (COUMADIN) tablet 7.5 mg 7.5 mg, [...] Zoe Galeas, YURI)1832 (Given - Provider: Zoe Galeas, YURI)2244 (Given - Provider: Beth Buenrostro, YURI) 0225 (Given - Provider: Beth Buenrostro, YURI)0602 (Given - Provider: Beth Buenrostro, YURI)1034 (Given - Provider: Shira Hess RN)1721 (Given - Provider: Eddie Grimes RN)2345 (Given - Provider: Ale Bolaños, YURI) 0419 (Given - Provider: Ale Bolaños, RN)0822 (Given - Provider: Kristi Reina RN) sodium phosphates (FLEET) 19-7 gram/118 mL rectal enema 1 Bottle 1 Bottle, Rectal, ONCE PRN, 1 dose, Starting on Jory 05/10/13 at 1629, Until 05/11/13 at 1243, Constipation, Routine documented in this encounter Care Teams Molder Labels Relationship Specialty Start Date End Date Shaheen Taylor MD PCP - General 04/13/13 11/03/22 documented as of this encounter
--- OUTSIDE RECORDS SUMMARY | 2024-06-18 00:51 | XMS_ITS | Encounter Summary ---
Author Organization [facility] [place] [address] Care Team Providers Care Hide Dyer Name Role Phone Josr Rangel MD Primary Care Provider Unavailab le Encounter Details Date Type Department Care Team (Late st Contact Info) Description 04/13/2013 10:09 AM EST - 04/13/2013 11:59 PM [facility] Hospital Encounter XRay at [facility] [address] [place] [address] Knee pain Social History Tobacco Use Types Packs/Day Years [...] mg capsule 2000mg, PO, Pre procedure 05/13/2010 warfarin (COUMADIN) 5 mg tablet Take 1.5 [...] this injection. 2 Syringe 2 05/12/2013 06/14/2013 warfarin (COUMADIN) 5 mg tablet Take 1 tablet by mouth once for 1 dose. 30 tablet 0 05/08/2013 05/08/2013 acetaminophen (TYLENOL) 500 mg tablet Take 2 tablets by mouth every 8 hours. 30 tablet 05/08/2013 05/11/2013 HYDROmorphone (DILAUDID) 2 mg tablet Take 1-3 tablets by mouth every 3 hours as needed for Pain. 90 tablet 0 05/08/2013 05/25/2013 OXYcodone (OXYCONTIN) 10 mg CR tablet Take 1 tablet by mouth 2 times daily. 60 tablet 0 05/08/2013 05/11/2013 polyethylene glycol (MIRALAX) 17 gram packet Take 17 g by mouth 2 times daily for 3 days. 14 each 05/08/2013 05/11/2013 aspirin 325 mg tablet 05/13/2010 05/11/2013 documented as of this encounter Plan of Treatment Upcoming Encounters Date Type Department Care Team (Late st Contact Info) Description 06/21/2024 11:15 AM EST Office Visit Neurosurgery at [facility] [address] [place] [address] Riley Parisi MD [address] [facility] [place] [address] Canelo Hodgson PA [address] [facility] [place] [address] documented as of this encounter Procedures Procedure Name Priority Date/Time Associated Diagnosis Comments XR JOINT TEAM ALIGNMENT AP LAT SCHUSS SKYLINE Routine 04/13/2013 10:24 AM EST Knee pain documented in this encounter Results * XR JOINT TEAM [...] in this encounter Visit Diagnoses Diagnosis Knee pain Pain in joint, lower leg documented in this encounter Care Teams Hide Dyer Relationship Specialty Start Date End Date Josr Rangel MD PCP - General 04/13/13 11/03/22 documented as of this encounter
--- NOTE | 2024-06-18 06:45 | DI.US_ITS ---
Exam(s) US AAA SCREENING EXAM: US AAA SCREENING CLINICAL HISTORY: hx tobacco use,z87.891,screening for aaa COMPARISON: No exams were available for comparison FINDINGS: Abdominal Aorta: Proximal: 2.8 cm Mid: 2.2 cm Distal: 2.0 cm Iliacs: Right: 1.4 cm Left: 1.3 cm IMPRESSION: No evidence of abdominal aortic aneurysm. DATA REPOSITORY:
== END 2024-06-18 01:01 ==
LOC: DI 00:41
PROVIDERS: PCP Family Medicine; Visit Provider Family Medicine
DX: Z87.891 Personal history of nicotine dependence (principal); Z13.6 Encounter for screening for cardiovascular disorders
CPT/HCPCS: 76706